=== PATIENT | male | born 1970 | race Caucasian/White ===

== ENCOUNTER → 2017-09-01 13:10 | Outpatient (CLI) | payer OTHER, SELFPAY ==
--- NOTE | 2017-09-01 13:12 | CT_ITS ---
CT head/brain wo/w con HISTORY: Left-sided facial numbness with headache ITS.REASON: numbness and headache ORDERING PHYSICIAN: Neville Winston MD PATIENT AGE: 47 years TECHNIQUE: Axial images obtained without and with contrast. Brain and bone windows reviewed. All CT scans at the facility use one or more dose reduction, viz: automated exposure control; ma/kV adjustment per patient size (including targeted exams where dose is matched to indication; i.e. head); or iterative reconstruction technique. FINDINGS: No midline shift, mass effect, intracranial hemorrhage, hydrocephalus, or extra-axial fluid collection is evident. No enhancing lesion. No large aneurysms The calvarium has an unremarkable appearance. No mastoid effusion. Moderate mucosal thickening involves the ethmoid sinuses on both sides. IMPRESSION: 1. No acute finding. 2. No enhancing lesions. No large territorial infarctions. 3. Ethmoid sinus disease
== END ==
PROVIDERS: PCP Emergency Medicine; Visit Provider Internal Medicine
DX: R51 Headache (principal); R20.0 Anesthesia of skin; I20.9 Angina pectoris, unspecified
CPT/HCPCS: 70470

== ENCOUNTER → 2018-03-10 08:10 | Outpatient (CLI) | payer OTHER, SELFPAY ==
[2018-03-10 09:04] LABS: Basophils # 0.1 K/mm3 (0-0.2); Basophils % 0.7 % (0.1-2.0); Eosinophils # 0.1 K/mm3 (0.0-0.4); Hematocrit 52.2 % (42.0-52.0); Hemoglobin 17.4 g/dL (14.1-18.0); Lymphocytes # 2.5 K/mm3 (0.7-4.5); Lymphocytes % 24.3 % (10-50); Mean Corpuscular HGB Conc 33.3 g/dL (31.8-35.4); Mean Corpuscular Hemoglobin 30.4 pg (27.0-31.2); Mean Corpuscular Volume 91.2 fl (80-94); Monocytes # 0.5 K/mm3 (0.1-1.0); Platelet Count 209 K/mm3 (142-424); Red Blood Count 5.73 M/mm3 (4.60-6.20); Red Cell Distribution Width 12.8 % (11.5-17.5); White Blood Count 10.1 K/mm3 (4.8-10.8)
[2018-03-10 09:39] LABS: Anion Gap 12.9 mEq/L (5-15); Blood Urea Nitrogen 14 mg/dL (7-18); Calcium 9.5 mg/dL (8.5-10.1); Carbon Dioxide 32 mmol/L (21.0-32.0); Chloride 98 mmol/L (98-107); Creatinine,Serum 0.98 mg/dL (0.70-1.30); Estimated Glomerular Filt Rate 82 ml/min (>60); GFR (African American) 100 ML/MIN (>60); Glucose 138 mg/dL (74-106); Potassium 3.9 mmoL/L (3.5-5.1); Sodium 139 mmol/L (136-145)
== END ==
PROVIDERS: Visit Provider Surgery
DX: N62 Hypertrophy of breast (principal)
CPT/HCPCS: 36415; 80048; 85025

== ENCOUNTER → 2018-11-25 08:01 | Outpatient (CLI) | payer BC, SELFPAY ==
[2018-11-25 09:23] LABS: Anion Gap 8.5 mEq/L (5-15); Blood Urea Nitrogen 11 mg/dL (7-18); Calcium 9.6 mg/dL (8.5-10.1); Carbon Dioxide 34 mmol/L (21.0-32.0); Chloride 101 mmol/L (98-107); Creatinine,Serum 0.93 mg/dL (0.70-1.30); Estimated Glomerular Filt Rate 87 ml/min (>60); GFR (African American) 105 ML/MIN (>60); Glucose 156 mg/dL (74-106); Potassium 3.5 mmoL/L (3.5-5.1); Sodium 140 mmol/L (136-145)
== END ==
PROVIDERS: Visit Provider Internal Medicine Cardiovascular Disease
DX: R06.09 Other forms of dyspnea (principal); R60.9 Edema, unspecified; I25.10 Atherosclerotic heart disease of native coronary artery without angina pectoris; E78.5 Hyperlipidemia, unspecified; I11.9 Hypertensive heart disease without heart failure; R53.83 Other fatigue
CPT/HCPCS: 36415; 80048; 83880

== ENCOUNTER → 2018-12-09 07:12 | Outpatient (CLI) | payer BC, SELFPAY | PROVIDERS: PCP Emergency Medicine; Visit Provider Internal Medicine Cardiovascular Disease | DX: I25.10 Atherosclerotic heart disease of native coronary artery without angina pectoris (principal); R06.09 Other forms of dyspnea; E78.5 Hyperlipidemia, unspecified; I11.9 Hypertensive heart disease without heart failure; I20.9 Angina pectoris, unspecified; R53.83 Other fatigue; R60.9 Edema, unspecified | CPT/HCPCS: 93306 ==

== ENCOUNTER → 2019-02-10 07:50 | Outpatient (CLI) | payer BC, SELFPAY ==
--- NOTE | 2019-02-10 08:08 | US_ITS ---
PROCEDURE: MM DIG MAMM BI DX W/CAD CLINICAL INDICATION: MALGORZATA NODULES COMPARISON: BL US BREAST-LT COMPLETE W/AXILLA from 09/09/2016 DMDB DIG MAMM-DX MALGORZATA W/CAD from 09/09/2016 US BREAST RT COMPLETE from 02/10/2019 TECHNIQUE: Standard images performed along with spot compression view and right breast ultrasound FINDINGS: There is increase in and retroareolar tissue on both sides. On the left this is decreased compared to the previous exam and on the right this has increased compared to the previous study. No malignant appearing microcalcifications. Motion artifact is present on the right and there is some difficulty in positioning right breast. The increased density in the right breast has a somewhat masslike appearance. This area measures 2.8 cm there is increased density also present posterior to the masslike area. Right breast ultrasound: There is a heterogeneous 3.6 x 1.8 cm area of slight decreased echogenicity in the retroareolar region on the right corresponding to the mammographic abnormality. IMPRESSION: On the right there is a masslike area of increased density in the retroareolar region with some increased glandular density posterior to this region. These findings may all be related to gynecomastia however, 1 cannot exclude the possibility of neoplasm. Consider fine needle aspiration/core biopsy with ultrasound guidance for further evaluation. The gynecomastia in the retroareolar region on the left has shown improvement. BI-RAD Category: 4 Suspicious Abnormality - Biopsy Considered FOLLOW-UP: BIO Biopsy Recommended (A letter has been sent to the patient regarding results of the study.) Dictated by: Anton Medina MD 02/16/2019 09:41 Electronically signed by Anton Medina MD in [place] 02/16/2019 09:41
== END ==
PROVIDERS: PCP Emergency Medicine; Visit Provider Surgery
DX: N62 Hypertrophy of breast (principal)
CPT/HCPCS: 76641; 77066

== ENCOUNTER → 2019-02-22 09:13 | Outpatient (CLI) | payer BC, SELFPAY ==
[2019-02-22 09:48] LABS: Basophils # 0.1 K/mm3 (0-0.2); Basophils % 0.6 % (0.1-2.0); Eosinophils # 0.1 K/mm3 (0.0-0.4); Eosinophils % 0.8 % (0.1-12.0); Hemoglobin 16.8 g/dL (14.1-18.0); Lymphocytes # 2.1 K/mm3 (0.7-4.5); Lymphocytes % 21.3 % (10-50); Mean Corpuscular HGB Conc 32.9 g/dL (31.8-35.4); Mean Corpuscular Hemoglobin 32.1 pg (27.0-31.2); Mean Corpuscular Volume 97.6 fl (80-94); Mean Platelet Volume 7.2 fl (7.4-10.4); Monocytes # 0.4 K/mm3 (0.1-1.0); Monocytes % 4.5 % (1.7-9.3); Neutrophils % 72.8 % (37.0-80.0); Platelet Count 220 K/mm3 (142-424); Red Blood Count 5.23 M/mm3 (4.60-6.20); Red Cell Distribution Width 12.6 % (11.5-17.5); White Blood Count 9.6 K/mm3 (4.8-10.8)
[2019-02-22 11:21] LABS: Anion Gap 13.4 mEq/L (5-15); Blood Urea Nitrogen 10 mg/dL (7-18); Calcium 9.3 mg/dL (8.5-10.1); Carbon Dioxide 30 mmol/L (21.0-32.0); Chloride 99 mmol/L (98-107); Creatinine,Serum 1.05 mg/dL (0.70-1.30); Estimated Glomerular Filt Rate 76 ml/min (>60); GFR (African American) 92 ML/MIN (>60); Glucose 143 mg/dL (74-106); Potassium 3.4 mmoL/L (3.5-5.1); Sodium 139 mmol/L (136-145)
== END ==
PROVIDERS: Visit Provider Surgery
DX: N62 Hypertrophy of breast (principal)
CPT/HCPCS: 36415; 80048; 85025

== ENCOUNTER → 2019-03-01 12:05 | Outpatient (CLI) | payer BC, SELFPAY ==
--- NOTE | 2019-03-01 | CA_ITS ---
APPROVED REPORT Exam: Exercise Treadmill Technologist: Theresa Bell Ht: 5 ft 8 in Wt: 193 lbs BSA: 2.01 m2 HR: 79 bpm BP: 142/96 mmHg Indications: Angina Medical History Medications: Omeprazole,,,,, Furosemide (LASIX),,,,, Isosorbide,,,,, Aspirin,,,,, Losartan,,,,, Escitalopram,,,,, BisOPROLOL,,,,, Nitro,,,,, Prasugel,,,,, Stress Test Details Test: Du HR Resting HR: 73 bpm Max Heart Rate (APMHR): 173 bpm Max HR Achieved: 150 bpm Target HR (85% APMHR): 147 bpm % of APMHR: 86 Recovery HR: 96 bpm BP Resting BP: 146.0/96.0 mmHg Max BP: 164.0/104.0 mmHg Recovery BP: 146.0/96.0 mmHg ECG Clinical Exercise duration: 10:04 min Highest Stage Achieved: Exercise capacity: 12.8 METs Stress ECG Conclusion Resting ECG: Sinus rhythm Du protocol completed. Patient exercised 10:04. Test stopped due to shortness of breath. Symptoms: Shortness of breath at peak exercise, resolved in recovery. No chest pain. Arrhythmias/Ectopy: No ectopy noted. ST-T Changes: less than 1.[address] depression. Conclusion: Images to follow. Test Summary RECOVERY 03:00 0.0 0.0 105 . 164/104 . . REST 07:09 0.0 0.0 73 . 146/ 96 . . Stage 1 01:00 10.0 1.7 92 . . . . Stage 1 02:00 10.0 1.7 97 . . . . Stage 1 03:00 10.0 1.7 99 . . . . Stage 2 01:00 12.0 2.5 106 . . . . Stage 2 02:00 12.0 2.5 110 . . . . Stage 2 03:00 12.0 2.5 113 . 148/ 82 . . Stage 3 01:00 14.0 3.4 120 . . . . Stage 3 02:00 14.0 3.4 127 . . . . Stage 3 03:00 14.0 3.4 135 . . . . Stage 4 01:00 16.0 4.2 146 . . . . Stage 4 01:04 16.0 4.2 148 . . . Stop exercise at 10:04 RECOVERY 01:00 0.0 0.0 133 . 158/ 90 . . RECOVERY 02:00 0.0 0.0 115 . 158/ 90 . . RECOVERY 03:00 0.0 0.0 105 . 164/104 . . RECOVERY 04:00 0.0 0.0 97 . 164/104 . . RECOVERY 04:54 0.0 0.0 95 . 146/ 96 . . Electronically signed by : Rickey Crenshaw, 03/02/2019 05:51:26
--- NOTE | 2019-03-01 12:32 | NM_ITS ---
APPROVED REPORT Exam: Nuclear Stress Test Indication: angina Patient Location: Outpatient Stress Tech: Theresa Bell [place] Tech:Cierra CalhounARIEL, RT (R)(N) Ht: 5 ft 8 in Wt: 193 lbs Bra Size: angina HR: 79 bpm BP: 142/96 mmHg BSA: 2.01 m2 BMI: 29.3 History: angina Procedure: Patient exercised on Du protocol 10.04 minutes and sec, resting heart rate 79 bpm, resting blood pressure 142/96 mmHg, with exercise maximum heart rate achived was 150 bpm which is Greater than 85 % of the maximum predicted heart rate and blood pressure was 164/104 mmHg. Patient denied any complaint of chest pain. Patient has Good exercise capacity, achieved 12.8 METs of workload on treadmill, the blood pressure response to exercise was Adequate. Electrocardiogram Resting electro cardiogram showed sinus rhythm, with exercise there is less than 1.[address] segment depression noted from the baseline EKG. The EKG portion of the exercise Myoview is negative for ischemia. Cardiac Stress and Resting SPECT Images: Cardiac Stress and Resting SPECT images were obtained using technetium 99m Myoview 30.7 mCi stress and 10.49 mCi at rest. Gated SPECT with analysis of segmental wall motion and calculation of the ejection fraction also done. Cardiac stress and resting SPECT images show uniform myocardial activity without segmental perfusion abnormality, computer derived ejection fraction is over 65% with no regional wall motion abnormality, right ventricle is normal size and contractility. Conclusion: 1. The EKG portion of the exercise Myoview is negative for ischemia, patient has good exercise capacity achieved 12.8 mets of workload on treadmill, the blood pressure response to exercise was adequate, there was no exercise-induced chest discomfort. 2. No scintigraphic evidence of reversible ischemia seen at this level of exercise, computer derived ejection fraction is over 65% with no regional wall motion abnormality, right ventricle is normal size and contractility. 3. Normal exercise sestamibi study. Electronically signed by : Rickey Crenshaw, 03/02/2019 05:53:30
--- NOTE | 2019-03-01 13:38 | HMH.ITSHM ---
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 []PRASUGREL OMEPRAZOLE NITRO LOSARTAN ISOSORBIDE FUROSEMIDE ESCITALOPRAM BISOPROLOL ASA
== END ==
PROVIDERS: PCP Emergency Medicine; Visit Provider Urology
DX: I20.9 Angina pectoris, unspecified (principal); E78.5 Hyperlipidemia, unspecified; I11.9 Hypertensive heart disease without heart failure; R06.00 Dyspnea, unspecified; N62 Hypertrophy of breast
CPT/HCPCS: 78452; 93017; A9502

== ENCOUNTER 2019-11-10 23:26 | Observation (INO) | payer BC, SELFPAY ==
--- NOTE | 2019-11-10 23:23 | ECG_ITS ---
APPROVED REPORT Exam: Resting ECG HR:82 bpm ECG Measurements Heart Rate 82 AXES WV 170 P 66 QRSd 96 QRS -11 QT 390 T 55 QTc 455 <Conclusion> Normal sinus rhythm Normal ECG Electronically signed by : Con Flowers, 11/12/2019 08:07:08
[2019-11-10 23:26] VITALS: BP 154/109; PULSE 82; RESP 16; TEMP 37.1; O2SAT 98; BMI 31.0
--- NOTE | 2019-11-10 23:48 | HMH.EDCP ---
ED Disposition Clinical Impression: Unstable angina pectoris, Obesity (BMI 30.0-34.9), Hypokalemia, Alcohol use HTN (hypertension) Qualifiers: Hypertension type: essential hypertension Qualified Code(s): I10 - Essential (primary) hypertension Disposition: Admitted as Observation Condition on Discharge: Fair Referrals: Angel Hector MD [Primary Care Provider] - - Critical Care Critical Care Time: No Attestation: On 11/10/19, the high probability of a clinically significant, sudden or life threatening deterioration of the following system(s) required my full and direct attention, intervention and personal management. The time I documented below is in addition to time spent performing reported procedures but includes the following listed in this critical care notation. Medical Decision Making - Medical Records Medical records reviewed: Yes: I reviewed the patient's medical records. - Valeriy Inquiry Pt receiving controlled substance: No Vital Signs: 11/10/19 23:26 11/10/19 23:50 11/11/19 00:24 Temperature 98.7 F Temperature Source Oral Pulse Rate [Left Radial] 82 78 76 Respiratory Rate 16 18 18 Blood Pressure [Right Arm] 154/109 H 135/93 H 147/95 H Blood Pressure Mean [Right Arm] 124 107 112 Blood Pressure Source [Right Arm] Automatic Cuff Blood Pressure Position [Right Arm] Sitting 02 Sat by Pulse Oximetry 98 94 L 95 Oxygen Delivery Method Room Air Room Air Room Air 11/11/19 01:14 Temperature Temperature Source Pulse Rate [Left Radial] 71 Respiratory Rate 18 Blood Pressure [Right Arm] 137/91 H Blood Pressure Mean [Right Arm] 106 Blood Pressure Source [Right Arm] Blood Pressure Position [Right Arm] 02 Sat by Pulse Oximetry 97 Oxygen Delivery Method - Lab Data Lab results reviewed: Yes: I reviewed the patient's lab results. Lab Results 11/10/19 23:36: Sodium 137, Potassium 2.8 L*, Chloride 94 L, Carbon Dioxide 33 H, Anion Gap 12.8, BUN 7 L, Creatinine 0.80, Estimated Creat Clear 148, Estimated GFR 103, Est GFR ( Amer) 125, Glucose 222 H, Calcium 9.3, Troponin I < 0.01 11/10/19 23:36: WBC 8.7, RBC 5.18, Hgb 17.4, Hct 49.9, MCV 96.4 H, MCH 33.6 H, MCHC 34.9, RDW 13.3, Plt Count 169, MPV 7.3 L, Neut % (Auto) 75.9, Lymph % (Auto) 17.1, [place] % (Auto) 5.9, Eos % (Auto) 0.9, Baso % (Auto) 0.4, Neut # (Auto) 6.6, Lymph # (Auto) 1.5, [place] # (Auto) 0.5, Eos # (Auto) 0.1, Baso # (Auto) 0.0 11/10/19 23:36: Plasma/Serum Alcohol 11 H 11/10/19 23:36: Magnesium 2.0 Result diagrams: 11/10/19 23:36 11/10/19 23:36 Orders (Tests/Meds): ED MEDICATIONS Generic Name Dose Route Start Last Admin Trade Name Freq PRN Reason Stop Dose Admin Sodium Chloride 1,000 mls @ 999 mls/hr 11/10/19 23:45 11/10/19 23:50 Sod Chlor 0.9% 1000ml Bag IV 11/11/19 00:45 999 mls/hr .Q1H1M JEWELS Administration Discontinued Medications Generic Name Dose Route Start Last Admin Trade Name Freq PRN Reason Stop Dose Admin Aspirin 324 mg 11/10/19 23:47 11/10/19 23:51 Aspirin 81mg Chewable Tablet PO 11/10/19 23:48 324 mg ONCE ONE Administration Nitroglycerin 1 gm 11/10/19 23:47 11/10/19 23:51 Nitroglycerin 1 Inch Oint Udp TD 11/10/19 23:48 1 gm ONCE ONE Administration Potassium Chloride 40 meq 11/11/19 01:10 Klor-Con 20meq Tablet PO 11/11/19 01:11 ONCE ONE ORDERS Category Date Time Status CT head/brain wo con Stat Cat Scan 11/11/19 00:03 Taken XR chest 2V Stat Exams 11/11/19 00:05 Taken ESR [Erythrocyte Sedimentation Rate] Stat Lab 11/11/19 00:49 Ordered Hemoglobin A1C Stat Lab 11/11/19 00:50 Ordered Troponin I Q3H Lab 11/11/19 03:00 Ordered Troponin I Q3H Lab 11/11/19 06:00 Ordered - Radiology Data #1 Image(s): Chest Image Reviewed: Yes I reviewed the patient's radiology image Preliminary Findings: Abnormal (cm) - CT Data CT Scan: Head Time Received: 00:[address] Reviewed: Yes: I have viewed the radiologist's interpretation Preli
[2019-11-10 23:50] VITALS: BP 135/93; PULSE 78; RESP 18; O2SAT 94
[2019-11-10 23:55] LABS: Basophils % 0.4 % (0.1-2.0); Chloride 94 mmol/L (98-107); Eosinophils # 0.1 K/mm3 (0.0-0.4); Eosinophils % 0.9 % (0.1-12.0); Hematocrit 49.9 % (42.0-52.0); Hemoglobin 17.4 g/dL (14.1-18.0); Lymphocytes # 1.5 K/mm3 (0.7-4.5); Lymphocytes % 17.1 % (10-50); Mean Corpuscular HGB Conc 34.9 g/dL (31.8-35.4); Mean Corpuscular Hemoglobin 33.6 pg (27.0-31.2); Mean Corpuscular Volume 96.4 fl (80-94); Mean Platelet Volume 7.3 fl (7.4-10.4); Monocytes # 0.5 K/mm3 (0.1-1.0); Monocytes % 5.9 % (1.7-9.3); Neutrophils # 6.6 K/mm3 (1.8-7.8); Neutrophils % 75.9 % (37.0-80.0); Platelet Count 169 K/mm3 (142-424); Red Blood Count 5.18 M/mm3 (4.60-6.20); Red Cell Distribution Width 13.3 % (11.5-17.5); Sodium 137 mmol/L (136-145); White Blood Count 8.7 K/mm3 (4.8-10.8)
[2019-11-10 23:58] LABS: Blood Urea Nitrogen 7 mg/dl (9-20); Creatinine Clearance Estimated 148 mL/min (50-200); Estimated Glomerular Filt Rate 103 ml/min (>60); GFR (African American) 125 ML/MIN (>60)
[2019-11-10 23:59] LABS: Anion Gap 12.8 mEq/L (5-15); Calcium 9.3 mg/dl (8.4-10.2); Carbon Dioxide 33 mmol/L (22.0-30.0); Ethyl Alcohol 11 mg/dl (0-10); Glucose 222 mg/dl (74-100)
--- NOTE | 2019-11-10 23:59 | PC.NURSE ---
pt to radiology
[2019-11-11] VITALS (12 sets, daily range): BP systolic 111–147; BP diastolic 70–95; PULSE 50–76; RESP 16–18; TEMP 36.4–36.9; O2SAT 94–97; BMI 31.0; BMI 27.1
[2019-11-11 00:03] LABS: Potassium 2.8 mmoL/L (3.5-5.1)
--- NOTE | 2019-11-11 00:03 | CT_ITS ---
PROCEDURE: CT HEAD/BRAIN WO CON CLINICAL INDICATION: right sided headache, left sided drop in foot Severe headache COMPARISON: HEADWW CT head/brain wo/w con from 09/01/2017 TECHNIQUE: Axial images obtained. All CT scans at the facility use one or more dose reduction, viz: automated exposure control, ma/kV adjustment per patient size (including targeted exams where dose is matched to indication, i.e. head), or iterative reconstruction technique. FINDINGS: No midline shift, mass effect, intracranial hemorrhage, hydrocephalus, or extra-axial fluid collection is evident. The calvarium has an unremarkable appearance. No mastoid effusion. There is opacification of the right ethmoid air cell mid aspect. No sinus air-fluid levels. IMPRESSION: 1. No acute intracranial findings. 2. Opacified right mid ethmoid air cell Dictated by: Anton Medina MD 11/11/2019 07:37 Electronically signed by Anton Medina MD in [facility] 11/11/2019 07:37
--- NOTE | 2019-11-11 00:05 | XR_ITS ---
PROCEDURE: XR CHEST 2V CLINICAL HISTORY: chestpain Chest pain, left-sided weakness COMPARISON: CXR CHEST(2 VIEWS-NOT PORTABLE) from 10/29/2015 CXR1 CHEST-PORTABLE from 05/05/2016 CXR1VP XR chest portable from 03/19/2018 FINDINGS: The cardiomediastinal silhouette and pulmonary vascularity are within normal limits. The lungs are clear without infiltrates, suspicious nodules, or pleural effusions. Mild lower thoracic curvature convex right IMPRESSION: No acute findings. Dictated by: Anton Medina MD 11/11/2019 07:35 Electronically signed by Anton Medina MD in [facility] 11/11/2019 07:35
[2019-11-11 00:15] LABS: Troponin I < 0.01 ng/ml (0.00-0.034)
--- NOTE | 2019-11-11 00:17 | PC.NURSE ---
pt back from RAD
[2019-11-11 01:45] LABS: Erythrocyte Sedimentation Rate 9 mm/hr (0-15)
--- NOTE | 2019-11-11 02:05 | PC.NURSE ---
attempted to call report for second time. forwarded to the wrong nurse again was told the right nurse would be calling me back.
--- NOTE | 2019-11-11 02:24 | PC.NURSE ---
report called to EMILIO armendariz
--- NOTE | 2019-11-11 02:52 | PC.NURSE ---
PT ARRIVED TO THE FLOOR VIA W/C FROM ED AT 0251.
[2019-11-11 03:56] LABS: Troponin I < 0.01 ng/ml (0.00-0.034)
[2019-11-11 04:59] LABS: Hemoglobin A1C 7.4 % (4.0-6.0)
[2019-11-11 05:38] LABS: POC Glucose,Bedside 133 (70-110)
--- NOTE | 2019-11-11 06:07 | PC.NURSE ---
[place] ROE NOTIFIED OF CONSULT
--- NOTE | 2019-11-11 07:27 | P.CONPHA_ITS ---
[facility] Pharmacy VTE Monitoring - Patient Demographics Admission date: 11/11/19 Report Date: 11/11/19 Time: 07:27 Allergies/Adverse Reactions: Patient Allergies loratadine [LORATADINE] Allergy (Mild, Verified 03/09/19 13:34) FACIAL SWELLING atorvastatin [From Lipitor] Adverse Reaction (Intermediate, Verified 03/09/19 13:34) myalgias spironolactone [From Aldactone] Adverse Reaction (Verified 03/09/19 13:34) Gynecomastia Height: 1.73 m Weight: 80.824 kg Patient Problems: Current Active Problems Unstable angina pectoris (Acute) Obesity (BMI 30.0-34.9) (Acute) Hypokalemia (Acute) HTN (hypertension) (Acute) Alcohol use (Acute) - VTE Risk Labs: VTE Related Lab Results Hgb 17.4 g/dL (14.1-18.0) 11/10/19 23:36 Hct 49.9 % (42.0-52.0) 11/10/19 23:36 Plt Count 169 K/mm3 (142-424) 11/10/19 23:36 BUN 7 mg/dl (9-20) L 11/10/19 23:36 Creatinine 0.80 mg/dl (0.66-1.25) 11/10/19 23:36 Estimated Creat Clear 148 mL/min (50-200) 11/10/19 23:36 VTE Score: 2 - Prophylaxis VTE Prophylaxis Ordered?: Yes Types of VTE Prophylaxis: TEDS Knee High Location of Applied Device: Bilateral Lower Extremeties - VTE Diagnosis Confirmed Treatment or plan recommended: Continue Current Treatment
--- NOTE | 2019-11-11 07:27 | HMH.PHAINT ---
MEDICATION RECONCILIATION COMPLETED ON PATIENT USING EXTERNAL FILL HISTORY FROM PHARMACY. -RANJEET GREGORIO, AZEBD
[2019-11-11 07:36] LABS: Basophils % 0.5 % (0.1-2.0); Eosinophils # 0.1 K/mm3 (0.0-0.4); Eosinophils % 1.6 % (0.1-12.0); Hematocrit 43.3 % (42.0-52.0); Lymphocytes # 1.9 K/mm3 (0.7-4.5); Lymphocytes % 29.6 % (10-50); Mean Corpuscular HGB Conc 35.1 g/dL (31.8-35.4); Mean Corpuscular Hemoglobin 34.2 pg (27.0-31.2); Mean Corpuscular Volume 97.4 fl (80-94); Mean Platelet Volume 8.4 fl (7.4-10.4); Monocytes # 0.4 K/mm3 (0.1-1.0); Monocytes % 6.6 % (1.7-9.3); Neutrophils # 3.9 K/mm3 (1.8-7.8); Neutrophils % 61.8 % (37.0-80.0); Platelet Count 146 K/mm3 (142-424); Red Blood Count 4.45 M/mm3 (4.60-6.20); Red Cell Distribution Width 13.4 % (11.5-17.5); White Blood Count 6.3 K/mm3 (4.8-10.8)
[2019-11-11 07:55] LABS: Troponin I < 0.01 ng/ml (0.00-0.034)
--- NOTE | 2019-11-11 07:55 | HMH.CNCARD ---
History of Present Illness Consult date: 11/11/19 Requesting physician: Angel Hector Consult reason: chest pain Chief complaint: chest pain Additional Medical History:: 1. Coronary artery disease A. [facility], 08/2017,1. Moderate coronary artery disease as described above 2. Severe endothelial dysfunction at 35-40 mm Hg 3. Severely elevated LVEDP consistent with diastolic dysfunction 4. Normal ejection fraction B. [facility], 02/2018, ANGIOGRAPHIC RESULTS: 1. The left main artery normal 2. The left anterior descending artery has a proximal eccentric 10% stenosis followed by a concentric 50% stenosis immediately distal to the first septal souvenir and novelty maker and a small to medium sized first diagonal artery. There is an additional mid vessel 50% stenosis following 7 septal perforators. The first diagonal artery is a 2 mm vessel and has a mid vessel 70-80% stenosis 3. The circumflex artery is a nondominant yet still large vessel with a 10% smooth stenosis and a large first obtuse marginal artery and a 30 and 50% stenosis in the second moderate sized 2.75 mm obtuse marginal artery 4. The right coronary artery is a dominant vessel and normal 5. The CRABTREE ventriculogram reveals normal 65% 6. The left ventricular end-diastolic pressure mildly elevated 20 mmHg IMPRESSION: 1. Moderate coronary artery disease as described above accompanied by normal left ventricular function 2. Mildly elevated LVEDP PLAN: 1. Patient is a low and acceptable risk to proceed with thoracic surgery on March 19 for lung mass/possible lung cancer 2. Patient should be treated with perioperative beta blockers and nitrates in order to reduce stable angina 3. Nothing from a percutaneous standpoint will improve or decrease patient's already low risk from the up coming surgery 4. Following thoracic surgery should patient continue to have angina which is recalcitrant to medical management consideration could be given to perform FFR on the LAD to determine if stenting will benefit patient from an angina standpoint 5. I'm very confident patient will do well with medical management. 6. Continue with aspirin 81 mg daily combined with high intensity statin combined with once daily beta collin combined with once daily long-acting nitrates 7. Avoidance of tobacco products C. [facility] Myoview, 02/2019, exercised for 10 minutes achieving 12.8 METs. No ischemia with ejection fraction 65%. D. Admission for chest pain, 11/11/2019, troponins normal x2 with normal EKG. Medical therapy recommended 2. History of tobacco use discontinued in 2017 3. Hypertension A. Echocardiogram, 2018, EF greater than 60% with borderline right ventricular enlargement. Normal LV size and function. B. Echocardiogram, 10/2019, preliminary report shows EF greater than 55% with no significant valvular heart disease. 4. Hyperlipidemia 5. Diabetes mellitus type 2 with hemoglobin A1c of 7.4, 10/2019 6. GERD 7. ETOH use History of present illness: 49-year-old white male with history of moderate coronary artery disease by cardiac catheterization x2 in 2017 presented to the emergency department due to 2 to 3-day history of recurrent substernal chest discomfort. Patient does have a chronic left-sided chest pain describes a sharp sensation. This was a different sensation substernally that was worse with breathing. Blood pressure was noted to be elevated at 154/109 mmHg on admission to the ER. He did receive nitroglycerin paste with improvement in symptoms and blood pressure. Patient was kept overnight for observation, his troponins have returned normal and EKG showed no acute ST segment changes. Preliminary echocardiogram this morning shows preserved ejection fraction with no significant valvular heart disease. In discussing with the patient his medications he does admit to missing medications on the weekends. He works third shift and takes his medications prior to going to work and
--- NOTE | 2019-11-11 08:00 | CA_ITS ---
APPROVED REPORT EXAM: Comprehensive 2D, Doppler, and color-flow Echocardiogram Inspector Barrel: Chapis Domínguez RVT Ht: 5 ft 8 in Wt: 204lbs BSA: 2.06 BP: 147/95 mmHg Indications: CP,HTN,CAD,HLD 2D Dimensions LVOT 1.67 cm (M/F) 1.5-2.5 M-Mode Dimensions RVDd 2.93 cm (0.9-2.6) LVDd 4.14 cm (3.5-5.7) LVDs 2.36 cm (3.5-5.7) IVSd 1.36 cm (0.6-1.1) PWd 1.00 cm (0.6-1.1) EF (Teich) 74.60% FS 43.00% EDV (Teich) 75.90 mL ESV (Teich) 19.30 mL LV Diastology E/A Ratio 1.37 Mitral Valve MV A Velocity 52.00 (40-130 cm/s) Left Ventricle Left atrium is mildly enlarged, left ventricle is normal size, left ventricle wall thickness is upper limit of normal, visually estimated ejection fraction 50%, there is moderate inferior basal wall hypokinesis. Endocardial surfaces are poorly visualized. Diastolic parameters are within normal range. Right Ventricle Right atrium and right ventricular normal size and contractility. Aortic Valve Aortic valve is grossly normal, there is no aortic stenosis or aortic insufficiency. Mitral Valve Mitral valve is grossly normal, there is mild mitral regurgitation. Tricuspid Valve Tricuspid valve grossly normal, there is mild tricuspid regurgitation, tricuspid regurgitation jet velocity is inadequate for calculation of the right ventricular systolic pressure. Pulmonic Valve Pulmonic valve is poorly visualized. Great Vessels Aortic root is normal size. Pericardium No significant pericardial effusion noted. Conclusion 1. Normal left ventricular size, preserved left ventricular systolic function, visually estimated ejection fraction 50% with segmental wall motion abnormality described above, endocardial surfaces are poorly visualized, diastolic parameters are within normal range. 2. Mild mitral and tricuspid regurgitation. 3. No significant pericardial effusion noted. Electronically signed by : Rickey Crenshaw, 11/11/2019 14:20:35
[2019-11-11 08:02] LABS: Chloride 100 mmol/L (98-107); Potassium 3.4 mmoL/L (3.5-5.1); Sodium 138 mmol/L (136-145)
[2019-11-11 08:05] LABS: Anion Gap 7.4 mEq/L (5-15); Blood Urea Nitrogen 8 mg/dl (9-20); Calcium 8.4 mg/dl (8.4-10.2); Carbon Dioxide 34 mmol/L (22.0-30.0); Creatinine Clearance Estimated 129 mL/min (50-200); Estimated Glomerular Filt Rate 103 ml/min (>60); GFR (African American) 125 ML/MIN (>60); Glucose 142 mg/dl (74-100)
[2019-11-11 08:33] LABS: Hemoglobin 15.2 g/dL (14.1-18.0)
[2019-11-11 11:13] LABS: POC Glucose,Bedside 121 (70-110)
--- NOTE | 2019-11-11 12:26 | HMH.HPDC ---
General - General Admission date:: 11/11/19 Discharge date: 11/11/19 *Admission Date: 11/11/19 *Chief complaint: chest pain *History of present illness: this pt presented to the ed with progressive chest pain over the last few days - Description of Symptoms (Recalled from ER Triage Doc. by RN): pt c/o intermitten chest pain for a couple of days to the left side of his chest that he describes as a sharp pain rating a 8 as well as aching joints of is LLE. pt also stated he has developed a drop in his left foot when he walks that started today progressive lt sided chest pain over the last 3 days with rad to jaw - hx of cad with last cath 2017 and last gxt 03/08- pt also with pain to jts on lt with weakness to lt foot - positive etoh but no tob MD complaint: chest pain indicative of cardiac pt was admitted for cardiac eval [facility] History I have reviewed the patient's past medical history: Yes Medical History: Reports:: Coronary Artery Disease, Diabetes Mellitus Type 2, Gastroesophageal Reflux Disease(GERD), Hyperlipidemia, Hypertension, Kidney Stones, Myocardial Infarction Denies:: Cancer, Diabetes Mellitus Type 1, Internal Pacemaker, MRSA, Seizures *Have you ever received a pneumonia vaccine?: No *Have you received a flu vaccine this season?: No Other Medical History: Denies: Blood Transfusion Reaction Laterality Cases: Bilateral: Lumpectomy, Other Other Surgeries: Yes: Cardiac Catheterization, Coronary Stent, Other (bilateral lumpectomy). No: Pacemaker Amputation: No Fractures: No - *Social History Smoking Status: Former smoker Tobacco Type: smokeless tobacco # Packs/Day (cigarettes): 1 Alcohol Intake: current Alcohol Intake Frequency:: 3 or more drinks per day Substance Use Type: denies use *Occupational Status:: employed Housing: house Household Members: spouse *Travel in the last 8 weeks: None Family Hx:: Heart Attack, Coronary Artery Disease Review of Systems - Review of Systems Review of systems:: pertinent systems reviewed and negative unless documented below - Constitutional Denies fever(s) - Eyes Denies change in vision - ENT Denies sore throat - *Cardiovascular Reports chest pain at rest, Reports radiating jaw, neck or arm pain - *Respiratory Denies cough - *Gastrointestinal Denies abdominal pain - *Genitourinary Denies blood in urine - *Musculoskeletal Denies joint pain - Integumentary/Breasts Denies rash - *Neurologic Denies headache(s), Denies seizure-like activity - Psychiatric Denies thoughts of hurting/killing yourself Exam Vital signs and Labs for Last 24 Hours: Temp Pulse Resp BP Pulse Ox 98.1 F 50 L 18 116/80 96 11/11/19 08:00 11/11/19 12:12 11/11/19 08:00 11/11/19 08:00 11/11/19 08:00 Laboratory Results - last 24 hr 11/10/19 23:36: Sodium 137, Potassium 2.8 L*, Chloride 94 L, Carbon Dioxide 33 H, Anion Gap 12.8, BUN 7 L, Creatinine 0.80, Estimated Creat Clear 148, Estimated GFR 103, Est GFR ( Amer) 125, Glucose 222 H, Calcium 9.3, Troponin I < 0.01 11/10/19 23:36: WBC 8.7, RBC 5.18, Hgb 17.4, Hct 49.9, MCV 96.4 H, MCH 33.6 H, MCHC 34.9, RDW 13.3, Plt Count 169, MPV 7.3 L, Neut % (Auto) 75.9, Lymph % (Auto) 17.1, [place] % (Auto) 5.9, Eos % (Auto) 0.9, Baso % (Auto) 0.4, Neut # (Auto) 6.6, Lymph # (Auto) 1.5, [place] # (Auto) 0.5, Eos # (Auto) 0.1, Baso # (Auto) 0.0 11/10/19 23:36: Plasma/Serum Alcohol 11 H 11/10/19 23:36: Magnesium 2.0 11/11/19 00:00: ESR 9 11/11/19 00:00: Hemoglobin A1c 7.4 H 11/11/19 03:18: Troponin I < 0.01 11/11/19 05:29: POC Glucose 133 H 11/11/19 07:25: Troponin I < 0.01 11/11/19 07:25: WBC 6.3 D, RBC 4.45 L, Hgb 15.2 D, Hct 43.3, MCV 97.4 H, MCH 34.2 H, MCHC 35.1, RDW 13.4, Plt Count 146, MPV 8.4, Neut % (Auto) 61.8, Lymph % (Auto) 29.6, [place] % (Auto) 6.6, Eos % (Auto) 1.6, Baso % (Auto) 0.5, Neut # (Auto) 3.9, Lymph # (Auto) 1.9, [place] # (Auto) 0.4, Eos # (Auto) 0.1, Baso # (Auto) 0.0 11/11/19 07:25: Sodium 138, Potassium 3.4 L D, Ch
[2019-11-11 15:24] LABS: POC Glucose,Bedside 215 (70-110)
== END 2019-11-11 13:37 | disposition home or self-care (01) ==
LOC: ER 11-11 00:36 → 2ND 11-11 01:19
PROVIDERS: Admitting Provider Emergency Medicine; Emergency Provider Emergency Medicine; PCP Emergency Medicine; Visit Provider Emergency Medicine
DX: R07.9 Chest pain, unspecified (principal); I25.10 Atherosclerotic heart disease of native coronary artery without angina pectoris; I11.9 Hypertensive heart disease without heart failure; E11.9 Type 2 diabetes mellitus without complications; Z79.84 Long term (current) use of oral hypoglycemic drugs; I25.2 Old myocardial infarction; Z95.5 Presence of coronary angioplasty implant and graft; E87.6 Hypokalemia; J01.20 Acute ethmoidal sinusitis, unspecified
CPT/HCPCS: 36415; 70450; 71046; 80048; 82962; 83036; 83735; 84484; 85025; 85651; 93005; 93306; 96365; 99285; G0378

== ENCOUNTER 2019-12-01 07:58 | Outpatient (RCR) | payer BC, SELFPAY ==
--- NOTE | 2019-12-01 08:40 | HMH.PTOPEV ---
PT Outpatient Evaluation Rehab PT Outpatient Evaluation Start: 12/01/19 08:09 Freq: Status: Active Protocol: Document 12/01/19 08:29 ROE (Rec: 12/01/19 08:40 ROE [id number]) Electronically Signed By Aki Clement, PT 12/01/19 08:29 Outpatient Therapy Subjective History Subjective History Pt report h/o chronic LBP since bending and 'feeling a pop in my low back in June'. Pt reports improved LBP since initial injury, but reports exacerbation ~2 weeks ago with another lifting/bending injury. Pt reports initially L sided LBP w/L foot drop, ' then it moved to the right, and now the Left side feels better, and the right is way worse'. Pt reports R>L sided LBP currently, w/RLE radicular s/s to the toes. Pt reports s /s increased w/work activities at [facility]-'prolonged standing up to 10hrs, lifting up to 50#'. Chief Complaint Pain,Paresthesia,Weakness Symptom Type Ache,Sharp,Dull,Numbness, Tingling Symptoms Relieved By Rest/Positioning,Prescription Meds Symptoms Aggravated By Bending/Stooping,Physical Activity,Lifting Prior Functional Limitations Lifting,Driving,Standing, Walking,Bending/Stooping Current Functional Limitations Lifting,Driving,Standing, Walking,Bending/Stooping Symptom Description Constant but Variable Level of pain today (0-10) 6 Pain scale - at its best (0-10) 4 Pain scale - at its worst (0-10) 10 Lumbopelvic Eval Posture Thoracic Spine Posture Standing Position Neutral Lumbar Spine Posture Standing Position Flattened Assistive device Assistive Devices None / NA Gait Observation General Gait Pattern Observation Antalgic Gait Palapation tenderness right paraspinal tenderness Yes: 3/4 buttock tenderness Yes: 3/4 Lumbar/Sacral Palpation Findings Tenderness,Trigger Point, Muscle Guarding Accessory Movement L-spine Vertebrae Accessory Movements Right P/A [place] that Elicit Symptoms L4 right L5 right Range of Motion Lumbar Spine Active Flexion Range of 0-35 Motion (degrees)
== END 2019-12-01 08:45 | disposition home or self-care (01) ==
LOC: PT 07:58
PROVIDERS: PCP Emergency Medicine; Visit Provider Family Medicine
DX: M54.16 Radiculopathy, lumbar region (principal)
CPT/HCPCS: 97163

== ENCOUNTER 2020-05-22 19:36 | Emergency (ER) | payer BC, SELFPAY ==
[2020-05-22 19:37] VITALS: BP 149/110; PULSE 90; RESP 18; TEMP 36.8; O2SAT 97; BMI 27.8
[2020-05-22 19:56] VITALS: BMI 29.3
--- NOTE | 2020-05-22 19:56 | ECG_ITS ---
APPROVED REPORT Exam: Resting ECG HR:89 bpm ECG Measurements Heart Rate 89 AXES GA 164 P 60 QRSd 94 QRS -32 QT 382 T 34 QTc 464 Conclusion Sinus rhythm with fusion complexes Left axis deviation Abnormal ECG Electronically signed by : Con Flowers, 05/23/2020 13:49:54
--- NOTE | 2020-05-22 19:57 | XR_ITS ---
PROCEDURE: XR CHEST 2V CLINICAL HISTORY: shortnes of air Fever and chills COMPARISON: CR CXR1 CHEST-PORTABLE from 05/05/2016 CR CXR1VP XR chest portable from 03/19/2018 CR XR CHEST 2V from 11/11/2019 FINDINGS: The cardiomediastinal silhouette and pulmonary vascularity are within normal limits. The lungs are clear without infiltrates, suspicious nodules, or pleural effusions. No acute bony abnormalities. IMPRESSION: No acute findings. Dictated by: Anton Medina MD 05/23/2020 05:15 Anton Medina MD in [place] 05/23/2020 05:15
[2020-05-22 20:04] LABS: Adenovirus,PCR Not Detected (NotDetected); Bordetella Pertussis Not Detected (NotDetected); Chlamydophila Pneumoniae, PCR Not Detected (NotDetected); Coronavirus 19, PCR Not Detected (NotDetected); Coronavirus 229E Not Detected (NotDetected); Coronavirus NL63 Not Detected (NotDetected); Coronavirus OC43 Not Detected (NotDetected); Coronovirus HKU1,PCR Not Detected (NotDetected); Human Metapneumovirus Not Detected (NotDetected); Influenza A, PCR Not Detected (NotDetected); Influenza AH1, 2009 Not Detected (NotDetected); Influenza AH1, PCR Not Detected (NotDetected); Influenza AH3,PCR Not Detected (NotDetected); Influenza B, PCR Not Detected (NotDetected); Mycoplasma Pneumoniae, PCR Not Detected (NotDetected); Parainfluenza 1, PCR Not Detected (NotDetected); Parainfluenza 2, PCR Not Detected (NotDetected); Parainfluenza 3, PCR Not Detected (NotDetected); Parainfluenza 4, PCR Not Detected (NotDetected); Respiratory Syncytial Virus Not Detected (NotDetected); Rhinovirus/Enterovirus Not Detected (NotDetected)
[2020-05-22 20:06] LABS: ABG Base Excess 2.1 mmol/L (-2.4-2.3); ABG HCO3 25.5 mmhg (22.0-26.0); ABG Oxygen Saturation 98 % (90-100); ABG PCO2 34.2 mmhg (35.0-45.0); ABG PH 7.49 mmol/L (7.35-7.45); ABG TCO2 26.5 mmhg (23-27)
[2020-05-22 20:07] LABS: Basophils # 0.1 K/mm3 (0-0.2); Basophils % 0.8 % (0.1-2.0); Eosinophils % 0.6 % (0.1-12.0); Hematocrit 55.4 % (42.0-52.0); Lymphocytes # 1.4 K/mm3 (0.7-4.5); Lymphocytes % 21.3 % (10-50); Mean Corpuscular HGB Conc 34.3 g/dL (31.8-35.4); Mean Corpuscular Hemoglobin 32.8 pg (27.0-31.2); Mean Corpuscular Volume 95.6 fl (80-94); Mean Platelet Volume 7.4 fl (7.4-10.4); Monocytes # 0.3 K/mm3 (0.1-1.0); Neutrophils # 4.7 K/mm3 (1.8-7.8); Neutrophils % 73.3 % (37.0-80.0); Platelet Count 173 K/mm3 (142-424); Red Cell Distribution Width 13.4 % (11.5-17.5); White Blood Count 6.4 K/mm3 (4.8-10.8)
[2020-05-22 20:11] LABS: Lactic Acid 1.7 mmol/L (0.7-2.1)
[2020-05-22 20:15] LABS: Allen's Test Y; Oxygen R/A %; Source R/R
[2020-05-22 20:15] LABS: C-Reactive Protein 1.4 mg/L (0-4)
[2020-05-22 20:22] LABS: NT Pro Brain Natriuretic Pep. 16.2 pg/mL (0-125)
[2020-05-22 20:34] LABS: Chloride 102 mmol/L (98-107); Potassium 3.8 mmoL/L (3.5-5.1); Sodium 139 mmol/L (136-145)
[2020-05-22 20:37] LABS: Alanine Aminotransferase 92 U/L (12-78); Albumin Level 4.2 g/dl (3.5-5.0); Alkaline Phosphatase 108 U/L (38-126); Anion Gap 10.8 mEq/L (5-15); Aspartate Amino Transferase 103 U/L (17-59); Bilirubin,Direct 0.4 mg/dl (0.0-0.4); Bilirubin,Indirect 0.3 mg/dL (0.0-0.9); Bilirubin,Total 0.7 mg/dl (0.2-1.3); Bilirubin,Unconjugated 0.3 mg/dL (0.0-1.1); Blood Urea Nitrogen 9 mg/dl (9-20); Calcium 10.1 mg/dl (8.4-10.2); Carbon Dioxide 30 mmol/L (22.0-30.0); Creatinine Clearance Estimated 138 mL/min (50-200); Estimated Glomerular Filt Rate 103 ml/min (>60); GFR (African American) 124 ML/MIN (>60); Glucose 297 mg/dl (74-100); Total Protein,Serum 7.7 g/dl (6.3-8.2)
[2020-05-22 20:40] LABS: Erythrocyte Sedimentation Rate 5 mm/hr (0-15)
--- NOTE | 2020-05-22 20:44 | HMH.EDSOB ---
ED Disposition Clinical Impression: Bronchitis Reactive airway disease Qualifiers: Asthma severity: moderate Asthma persistence: persistent Asthma complication type: with acute exacerbation Qualified Code(s): J45.41 - Moderate persistent asthma with (acute) exacerbation Disposition: Home, Self-Care Condition on Discharge: Good Instructions: DI for Shortness of Breath Additional Instructions: use meds and see pcp for follow up Referrals: Angel Hector MD [Primary Care Provider] - - Critical Care Critical Care Time: No Attestation: On 05/22/20, the high probability of a clinically significant, sudden or life threatening deterioration of the following system(s) required my full and direct attention, intervention and personal management. The time I documented below is in addition to time spent performing reported procedures but includes the following listed in this critical care notation. Medical Decision Making - Medical Records Medical records reviewed: Yes: I reviewed the patient's medical records. - Valeriy Inquiry Pt receiving controlled substance: No Vital Signs: 05/22/20 19:37 Temperature 98.2 F Temperature Source Oral Pulse Rate [Left Radial] 90 Respiratory Rate 18 Blood Pressure [Right Arm] 149/110 H Blood Pressure Mean [Right Arm] 123 Blood Pressure Source [Right Arm] Automatic Cuff Blood Pressure Position [Right Arm] Supine 02 Sat by Pulse Oximetry 97 Oxygen Delivery Method Room Air - Lab Data Lab results reviewed: Yes: I reviewed the patient's lab results. Lab Results 05/22/20 19:45: WBC 6.4, RBC 5.80, Hgb 19.0 H*, Hct 55.4 H, MCV 95.6 H, MCH 32.8 H, MCHC 34.3, RDW 13.4, Plt Count 173, MPV 7.4, Neut % (Auto) 73.3, Lymph % (Auto) 21.3, [place] % (Auto) 4.0, Eos % (Auto) 0.6, Baso % (Auto) 0.8, Neut # (Auto) 4.7, Lymph # (Auto) 1.4, [place] # (Auto) 0.3, Eos # (Auto) 0.0, Baso # (Auto) 0.1 05/22/20 19:45: Sodium 139, Potassium 3.8, Chloride 102, Carbon Dioxide 30, Anion Gap 10.8, BUN 9, Creatinine 0.80, Estimated Creat Clear 138, Estimated GFR 103, Est GFR ( Amer) 124, Glucose 297 H, Calcium 10.1, Total Bilirubin 0.7, Direct Bilirubin 0.4, Conjugated Bilirubin 0.0, Indirect Bilirubin 0.3, Unconjugated Bilirubin 0.3, AST 103 H, ALT 92 H, Alkaline Phosphatase 108, Troponin I < 0.01, Total Protein 7.7, Albumin 4.2 05/22/20 19:45: C-Reactive Protein 1.4, NT-Pro-B Natriuret Pep 16.2 05/22/20 19:45: ESR 5 05/22/20 19:45: Lactate 1.7 05/22/20 19:45: Procalcitonin 0.178 05/22/20 19:49: Chlamy pneumoniae PCR Not detected, Adenovirus (PCR) Not detected, B. pertussis DNA (PCR) Not detected, Coronavirus OC43 (PCR) Not detected, Coronavirus HKU1 (PCR) Not detected, Coronavirus 229E (PCR) Not detected, SARS-CoV-2 (PCR) Not detected, Coronavirus NL63 (PCR) Not detected, Human Metapneumovir PCR Not detected, Influenza A (H1) PCR Not detected, Influ A (H1N1/09) PCR Not detected, Influenza A (H3) PCR Not detected, Influenza Type A (PCR) Not detected, Influenza Type B (PCR) Not detected, M. pneumoniae (PCR) Not detected, Parainfluenza 1 (PCR) Not detected, Parainfluenza 2 (PCR) Not detected, Parainfluenza 3 (PCR) Not detected, Parainfluenza 4 (PCR) Not detected, RSV (PCR) Not detected, Entero/Rhino (PCR) Not detected 05/22/20 20:05: Specimen Source R/r, O2 % R/a, ABG pH 7.49 H, ABG pCO2 34.2 L, ABG HCO3 25.5, ABG Total CO2 26.5, ABG O2 Saturation 98, ABG Base Excess 2.1, Anton Test Y Result diagrams: 05/22/20 19:45 05/22/20 19:45 Orders (Tests/Meds): ED MEDICATIONS Generic Name Dose Route Start Last Admin Trade Name Freq PRN Reason Stop Dose Admin Sodium Chloride 1,000 mls @ 999 mls/hr 05/22/20 20:45 05/22/20 20:45 Sod Chlor 0.9% 1000ml Bag IV 05/22/20 21:45 999 mls/hr .Q1H1M JEWELS Administration Ceftriaxone Sodium 1 gm/ 50 mls @ 100 mls/hr 05/22/20 23:09 05/22/20 23:14 Sodium Chloride IV 05/22/20 23:38 100 mls/hr ONCE ONE Administration Protocol Azithromycin 500 mg/ Sodium 250 ml
[2020-05-22 20:50] LABS: Troponin I < 0.01 ng/ml (0.00-0.034)
[2020-05-22 20:54] LABS: Procalcitonin 0.178 ng/mL (0.0-2.0)
[2020-05-22 22:07] VITALS: BP 136/92; PULSE 86; RESP 16; O2SAT 96
[2020-05-22 23:46] VITALS: BP 125/74; PULSE 89; RESP 16; TEMP 36.5; O2SAT 98
[2020-05-23 00:16] LABS: Troponin I < 0.01 ng/ml (0.00-0.034)
== END 2020-05-23 00:15 | disposition home or self-care (01) ==
PROVIDERS: Emergency Provider Emergency Medicine; PCP Emergency Medicine
DX: J20.9 Acute bronchitis, unspecified (principal); J45.41 Moderate persistent asthma with (acute) exacerbation; Z11.52 Encounter for screening for COVID-19; I25.10 Atherosclerotic heart disease of native coronary artery without angina pectoris; K21.9 Gastro-esophageal reflux disease without esophagitis; E78.5 Hyperlipidemia, unspecified; I10 Essential (primary) hypertension; I25.2 Old myocardial infarction; Z87.891 Personal history of nicotine dependence; Z79.899 Other long term (current) drug therapy
CPT/HCPCS: 71046; 80048; 80076; 82803; 83605; 83880; 84145; 84484; 85025; 85651; 86140; 87040; 87077; 87186; 87581; 87633; 87798; 93005; 96365; 96367; 96375; 99284; J0456; J2405

== ENCOUNTER → 2020-12-11 11:15 | Outpatient (CLI) | payer OTHER, SELFPAY ==
[2020-12-11 11:32] LABS: Coronavirus 19, PCR Not Detected (NotDetected); Influenza A, PCR Not Detected (NotDetected); Influenza B, PCR Not Detected (NotDetected)
== END ==
PROVIDERS: PCP Emergency Medicine; Visit Provider Nurse Practitioner Family
DX: Z20.822 Contact with and (suspected) exposure to COVID-19 (principal)
CPT/HCPCS: U0003

== ENCOUNTER 2021-01-14 12:24 | Emergency (ER) | payer OTHER, SELFPAY ==
[2021-01-14 12:26] VITALS: BP 154/100; PULSE 72; RESP 16; TEMP 36.8; O2SAT 100; BMI 28.1
--- NOTE | 2021-01-14 12:46 | XR_ITS ---
PROCEDURE: XR HIP RT 2-3V W/PELVIS CLINICAL INDICATION: pain Pain COMPARISON: No exams were available for comparison FINDINGS: No fracture or dislocation is evident. No significant degenerative change. No lytic or blastic change. Unremarkable soft tissues. IMPRESSION: No acute findings. Dictated by: Anton Medina MD 01/14/2021 13:34 Anton Medina MD in [facility] 01/14/2021 13:34
--- NOTE | 2021-01-14 12:46 | CT_ITS ---
PROCEDURE: CT LUMBAR SPINE WO CON CLINICAL HISTORY: Low back pain COMPARISON: CT CT LUMBAR SPINE WO CON from 07/12/2019 TECHNIQUE: Axial images obtained with sagittal and coronal reformats. All CT scans at the facility use one or more dose reduction, viz: automated exposure control, ma/kV adjustment per patient size (including targeted exams where dose is matched to indication, i.e. head), or iterative reconstruction technique. FINDINGS: Normal alignment. No fracture or dislocation. No lytic or blastic change. There is mild degenerative disc disease at L2-L3 with minimal bulging disc. L3-L4: Concentric bulging disc slightly eccentric toward the right with a possible small right paracentral disc herniation. MRI may confirm. This is causing right lateral recess narrowing. L4-5: Asymmetric bulging disc in the central left paracentral foraminal and lateral region on the left. Not significantly changed. This is causing left lateral recess narrowing and there is mild left foraminal narrowing. 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 L3-L4: Concentric bulging disc slightly eccentric toward the right with a possible small right paracentral disc herniation. MRI may confirm. This is causing right lateral recess narrowing. 2. L4-5: Asymmetric bulging disc in the central left paracentral foraminal and lateral region on the left. Not significantly changed. This is causing left lateral recess narrowing and there is mild left foraminal narrowing. 3. No acute fracture or dislocation. No lytic or blastic change Dictated by: Anton Medina MD 01/14/2021 13:43 Anton Medina MD in [facility] 01/14/2021 13:43
--- NOTE | 2021-01-14 13:12 | HMH.EDGENADL ---
ED Disposition Clinical Impression: Lumbar radiculopathy Disposition: Home, Self-Care Condition on Discharge: Good Instructions: DI for Sciatica Prescriptions: Hydrocod/Acet 5/325 mg [[place] 5/325mg tablet] 1 tab PO Q6HP PRN #12 tab PRN Reason: Moderate Pain Transmission Status: Sent to [facility] methocarbamoL [Methocarbamol] 750 mg PO QID 7 Days #28 tab Transmission Status: Pending to [facility] Referrals: Angel Hector MD [Primary Care Provider] - - Critical Care Critical Care Time: No Attestation: On 01/14/21, the high probability of a clinically significant, sudden or life threatening deterioration of the following system(s) required my full and direct attention, intervention and personal management. The time I documented below is in addition to time spent performing reported procedures but includes the following listed in this critical care notation. Medical Decision Making - Medical Records Medical records reviewed: Yes: I reviewed the patient's medical records. - Valeriy Inquiry Pt receiving controlled substance: No Vital Signs: 01/14/21 12:26 Temperature 98.2 F Temperature Source Oral Pulse Rate [Right] 72 Respiratory Rate 16 Blood Pressure [Right Arm] 154/100 H Blood Pressure Mean [Right Arm] 118 Blood Pressure Source [Right Arm] Automatic Cuff Blood Pressure Position [Right Arm] Sitting 02 Sat by Pulse Oximetry 100 Oxygen Delivery Method Room Air Orders (Tests/Meds): ED MEDICATIONS Generic Name Dose Route Start Last Admin Trade Name Freq PRN Reason Stop Dose Admin Methocarbamol 1,000 mg 01/14/21 21:00 Methocarbamol 500mg Tablet PO 02/13/21 20:59 BID JEWELS Discontinued Medications Generic Name Dose Route Start Last Admin Trade Name Freq PRN Reason Stop Dose Admin Ketorolac Tromethamine 30 mg 01/14/21 12:46 01/14/21 12:53 Ketorolac 30mg/Ml Vial IM 01/14/21 12:47 30 mg ONCE ONE Administration - Radiology Data #1 Image(s): Hip Image Reviewed: Yes I reviewed the patient's radiology results, Yes I reviewed the patient's radiology image, Yes I reviewed the patient's radiology image w/the ED provider IMPRESSION: No acute findings. - CT Data CT Scan: L-Spine Time Received: 14:[address] Reviewed: Yes: I have reviewed the patient's CT results, I have viewed the radiologist's interpretation Findings Narrative: IMPRESSION: 1. L3-L4: Concentric bulging disc slightly eccentric toward the right with a possible small right paracentral disc herniation. MRI may confirm. This is causing right lateral recess narrowing. 2. L4-5: Asymmetric bulging disc in the central left paracentral foraminal and lateral region on the left. Not significantly changed. This is causing left lateral recess narrowing and there is mild left foraminal narrowing. 3. No acute fracture or dislocation. No lytic or blastic change - Reevaluation(s) Time: 14:05 Reevaluation #1: Patient has evidence of slipped lumbar disc in the lumbar region. I do believe this is causing sciatica lumbar radiculopathy. I do recommend the patient follow-up with PCP for physical therapy. We will also give neurosurgery follow-up. Patient discharged short course analgesics. Given strict return precautions. Verbalized understanding. Medical Decision Narrative: 50-year-old male presenting with some right hip and back pain. Findings are consistent with sciatica, likely secondary to spondylolisthesis or lumbar strain. No evidence of compartment syndrome or spinal cord compression. Work-up initiated. General Adult HPI - General Chief complaint: PAIN Stated complaint: right hip and knee pain Time Seen by Provider: 01/14/21 12:30 Mode of Arrival: Ambulatory Limitations: No Limitations Description of Symptoms (Recalled from ER Triage Doc. by RN): PT c/o severe right hip pain that goes down into his leg and knee. Pt has trouble ambulating.
[2021-01-14 14:21] VITALS: BP 123/74; PULSE 78; RESP 16; TEMP 36.6; O2SAT 98
== END 2021-01-14 14:23 | disposition home or self-care (01) ==
PROVIDERS: Emergency Provider Emergency Medicine; PCP Emergency Medicine
DX: M54.16 Radiculopathy, lumbar region (principal); E11.9 Type 2 diabetes mellitus without complications; I25.10 Atherosclerotic heart disease of native coronary artery without angina pectoris; K21.9 Gastro-esophageal reflux disease without esophagitis; E78.5 Hyperlipidemia, unspecified; I25.2 Old myocardial infarction; I10 Essential (primary) hypertension; Z87.891 Personal history of nicotine dependence; Z79.899 Other long term (current) drug therapy
CPT/HCPCS: 72131; 73502; 96372; 99282; 99283

== ENCOUNTER → 2021-02-04 19:05 | Outpatient (CLI) | payer OTHER, SELFPAY ==
[2021-02-04 20:52] LABS: Benzodiazepines Screen,Urine Negative ng/ml (<200)
[2021-02-04 20:53] LABS: Amphetamine/Metha Screen,Urine Negative ng/ml (<1000); Barbiturates Screen,Urine Negative ng/ml (<200)
[2021-02-04 20:54] LABS: Cannabinoid Screen,Urine Negative ng/ml (<50)
[2021-02-04 20:55] LABS: Cocaine Screen,Urine Negative ng/ml (<300); Methadone Screen,Urine Negative ng/ml (<300)
[2021-02-04 20:56] LABS: Opiate Screen,Urine Negative ng/ml (<300); Phencyclidine Screen,Urine Negative ng/ml (<25)
== END ==
LOC: LAB.DROPOF 19:07
PROVIDERS: Visit Provider Emergency Medicine
DX: Z79.899 Other long term (current) drug therapy (principal)
CPT/HCPCS: 80305

== ENCOUNTER → 2021-02-08 10:23 | Outpatient (CLI) | payer OTHER, SELFPAY ==
--- NOTE | 2021-02-08 10:29 | MR_ITS ---
PROCEDURE: MR LUMBAR SPINE WO CON CLINICAL INDICATION: back pain Right is leg pain numbness and tingling COMPARISON: CR XR CHEST 2V from 05/22/[address] LUMBAR SPINE WO CON from 01/14/2021 TECHNIQUE: Standard multiplanar multiecho sequences are performed without contrast. 3-D MIP and myelographic images are also rendered and reviewed FINDINGS: There is normal alignment. The spinal cord ends at the L1 level. L1-L2: Unremarkable. L2-L3: Mild degenerative disc disease with mild facet hypertrophic change with minimal bulging disc and mild bilateral foraminal narrowing. L3-L4: Degenerative disc disease with bulging disc and a medium to large sized right paracentral disc herniation with inferior extrusion. The disc is extruded inferiorly by 12 mm. There is impingement upon the right L4 nerve root and L5 nerve root. Facet hypertrophic changes are also noted with bilateral lateral recess narrowing and bilateral foraminal narrowing. There is severe right lateral recess narrowing secondary to the herniated disc and the facet hypertrophy. L4-5: Degenerative disc disease with facet and ligamentum hypertrophy with moderate to severe bilateral foraminal narrowing and left lateral recess narrowing. There is minimal bulging disc along with a small central/left paracentral disc protrusion causing some minimal impingement upon the left L5 nerve root. L5-S1: Facet and ligamentum hypertrophy with mild bilateral foraminal narrowing greater on the right. 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 This is better demonstrated on CT. IMPRESSION: 1. L2-L3: Mild degenerative disc disease with mild facet hypertrophic change with minimal bulging disc and mild bilateral foraminal narrowing. 2. L3-L4: Degenerative disc disease with bulging disc. THERE IS A MEDIUM TO LARGE SIZED RIGHT PARACENTRAL DISC HERNIATION WITH INFERIOR EXTRUSION. THE DISC IS EXTRUDED INFERIORLY BY 12 MM. THERE IS IMPINGEMENT UPON THE RIGHT L4 NERVE ROOT AND L5 NERVE ROOT. Facet hypertrophic changes are also noted with bilateral lateral recess narrowing and bilateral foraminal narrowing. There is severe right lateral recess narrowing secondary to the herniated disc and the facet hypertrophy. 3. L4-5: Degenerative disc disease with facet and ligamentum hypertrophy with moderate to severe bilateral foraminal narrowing and left lateral recess narrowing. There is minimal bulging disc along with a small central/left paracentral disc protrusion causing some minimal impingement upon the left L5 nerve root. 4. L5-S1: Facet and ligamentum hypertrophy with mild bilateral foraminal narrowing greater on the right. 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 This is better demonstrated on CT. Dictated by: Anton Medina MD 02/20/2021 14:01 Anton Medina MD in [facility] 02/20/2021 14:01
== END ==
LOC: RAD 10:24
PROVIDERS: PCP Emergency Medicine; Visit Provider Emergency Medicine
DX: M54.9 Dorsalgia, unspecified (principal); M54.16 Radiculopathy, lumbar region
CPT/HCPCS: 72148; 76376

== ENCOUNTER → 2021-02-21 12:35 | Outpatient (POV) | payer OTHER, SELFPAY ==
[2021-02-21 13:04] VITALS: BP 184/90; PULSE 135; RESP 18; O2SAT 98; BMI 20.5
--- NOTE | 2021-02-21 14:13 | HMH.PMCON ---
Assessment and Plan (1) Degenerative joint disease (DJD) of lumbar spine Status: Chronic Category: Medical Code(s): M47.816 - Spondylosis without myelopathy or radiculopathy, lumbar region (2) Lumbar radiculopathy Status: Chronic Category: Medical Code(s): M54.16 - Radiculopathy, lumbar region (3) Lumbar herniated disc Status: Chronic Category: Medical Code(s): M51.26 - Other intervertebral disc displacement, lumbar region (4) Neck pain Status: Chronic Category: Medical Code(s): M54.2 - Cervicalgia (5) Cervical radiculopathy Status: Chronic Category: Medical Code(s): M54.12 - Radiculopathy, cervical region - Assessment and plan all Dx Assessment and Plan for all problems:: The patient and I did review his MRI today. He does have a medium sized herniated disc noted at the L3-L4 area per the MRI report. He also has nerve root impingement to this area. We did discuss options in the clinic. He is unable to tolerate physical therapy due to significant pain which has worsened. He has attempted home stretching with minimal relief. He has used ice and heat therapies which have not been beneficial. He is unable to take anti-inflammatories due to anticoagulation therapy. This is prescribed by Dr. Winston. He does have a history of an PA approximately 4 years ago with 3 cardiac catheterizations since then. He denies any cardiac stenting. Patient says that he is not diabetic. With his symptoms we did discuss undergoing a lumbar epidural steroid injection at L3-L4 area along with a neurosurgical evaluation. Patient is in agreement and would like to proceed. We will seek approval to hold the patient's anticoagulation therapy with Dr. Winston. If approved will proceed with the injection. While awaiting the neurosurgical evaluation, if patient gets significant relief with the injection we will proceed with a series of the injections. Possible side effects of corticosteroids have been discussed with the patient. Risks and benefits of the procedure have been explained to the patient. Patient would like to proceed with the procedure. Patient has been instructed to contact the clinic with any concerns before the next appointment. Dr. House has reviewed this note and agrees with this plan of care. This note was dictated using voice recognition software and make contain errors or omissions. HPI - Data of Consult Patient: new to practice Consult date: 02/21/21 Requesting Physician: Tracy Morelos APRN - Consult Narrative Reason for consult: Low back pain, right hip pain, right knee pain, right leg pain History of present illness: Mr. Henao is a 50 year old male who presents today for consultation for low back pain. The patient reports the pain to be radiating into the right hip, right knee and right leg. He has had the pain for approximately 5 months. The patient says that the pain has progressively worsened He also reports to be having neck pain that radiates into the right arm. He does say raising his right arm above his head gives him significant relief of his neck pain. Patient says the pain feels like a abscessed tooth to the low back . He is able to walk for 5 to 10 minutes and developed significant pain. The pain also worsens when sitting for 5 to 10 minutes requiring the patient to reposition often. He does say lying flat is significant pain to the point he has to use a pillow between his knees and push on his right foot using his left foot to get relief. He denies any recent trauma, surgeries or fractures to his spine. He denies saddle anesthesia or changes in bowel or bladder habit. He does rate his pain a 7 or an 8 out of 10. Patient did undergo imaging of his lumbar spine. He does say leaning forward gives him significant relief. The patient has tried home stretching with minimal relief. He has also tried ice and heat therapies. The patient is unable to take anti-inflammatories due to taki
== END ==
PROVIDERS: Visit Provider Clinical Nurse Specialist Family Health
DX: M47.896 Other spondylosis, lumbar region (principal); M54.16 Radiculopathy, lumbar region; M51.26 Other intervertebral disc displacement, lumbar region; M54.12 Radiculopathy, cervical region
CPT/HCPCS: 99212; G0463

== ENCOUNTER 2021-03-08 12:57 | Day surgery (SDC) | payer OTHER, SELFPAY ==
[2021-03-08 13:05] VITALS: BP 116/86; PULSE 89; RESP 18; TEMP 36.4; O2SAT 98; BMI 23.2
--- NOTE | 2021-03-08 13:38 | HMH.PMPROC ---
- Procedure Date: 03/08/21 Time: 13:38 Anesthesiologist:: Ella Pryor MD Complications:: None Pre-procedure Diagnosis:: Degenerative disc disease of lumbar spine with lumbar radiculopathy Post-procedure Diagnosis:: Same Indications for Procedure:: This patient is a very pleasant 50-year-old white male who presented with chronic low back pain rating to his legs related to the above diagnosis. He has tried and failed conservative treatment getting oral pain medications and home stretching program for greater than 6 weeks. The plan for today is for the patient to undergo lumbar epidural steroid injection under fluoroscopy at L5-S1. Procedure Details:: Informed consent was obtained and the risk and benefits of the procedure was explained to the patient. The patient was taken to the procedure room. The patient was placed prone on the procedure table. The patient was prepped and draped in sterile fashion. C-arm fluoroscopy was used to view the lumbar spine. Skin and subcutaneous tissues were anesthetized using lidocaine. I placed an 18-gauge epidural needle and advanced into the L5-S1 interspace using fluoroscopic guidance and [id number] to air and saline. After confirmation of needle placement in the epidural space with dye I injected 1 mL of lidocaine 1.0% with Depo-Medrol 80 mg. Patient tolerated the procedure well with no complications. Plan and Disposition:: We will follow-up with this patient in 2 weeks. Will reevaluate pain symptoms at that time.
[2021-03-08 13:41] VITALS: BP 135/84; PULSE 88; RESP 18; O2SAT 97
[2021-03-08 13:42] VITALS: BP 144/88; PULSE 86; RESP 18; O2SAT 97
[2021-03-08 14:00] VITALS: BP 133/89; PULSE 89; RESP 20; O2SAT 98
== END 2021-03-08 14:00 | disposition home or self-care (01) ==
LOC: SC.PAINP 12:58
PROVIDERS: PCP Emergency Medicine; Visit Provider Anesthesiology Pain Medicine
DX: M51.16 Intervertebral disc disorders with radiculopathy, lumbar region (principal); I25.2 Old myocardial infarction; E78.5 Hyperlipidemia, unspecified; I10 Essential (primary) hypertension; K21.9 Gastro-esophageal reflux disease without esophagitis; E11.9 Type 2 diabetes mellitus without complications; I25.10 Atherosclerotic heart disease of native coronary artery without angina pectoris; F41.9 Anxiety disorder, unspecified; F32.A Depression, unspecified; G43.909 Migraine, unspecified, not intractable, without status migrainosus; Z72.0 Tobacco use; Z87.442 Personal history of urinary calculi
CPT/HCPCS: 62323; J1040; Q9966

== ENCOUNTER → 2021-03-21 14:07 | Outpatient (CLI) | payer OTHER, SELFPAY | PROVIDERS: Visit Provider Nurse Practitioner Family | DX: Z20.822 Contact with and (suspected) exposure to COVID-19 (principal) | CPT/HCPCS: C9803; U0003; U0005 ==

== ENCOUNTER → 2021-03-28 13:09 | Outpatient (POV) | payer OTHER, SELFPAY ==
--- NOTE | 2021-03-28 13:24 | P.CONS_ITS ---
[facility] Pain Management SOAP Note Subjective:: Patient is a pleasant 50-year-old male who comes in here today for follow-up after a lumbar epidural steroid injection #1. Patient is currently being treated for degenerative disc disease of the lumbar spine with lumbar radiculopathy. After the procedure, patient states that he had about 70% relief and rates his pain a 6 out of 10 today. Patient says that it takes about 5 days for him to feel any relief. Patient says that he still has some pain on his low back pain that radiates to his right leg. Patient has tried and failed oral medications and home stretching program for greater than 6 weeks. His Valeriy is [phone] with an active morphine equivalent of 60. Drug screens have been revi ewed and appropriate. Review of Systems General: No recent weight changes, no fever, no sleep disturbances Respiratory: No cough, no shortness of air, no recurring pulmonary infections Cardiovascular/peripheral vascular: No chest pain, no palpitations, no edema, no shortness of breath Gastrointestinal: No new onset incontinence, normal bowel movements reported Genitourinary: No new onset incontinence Musculoskeletal: Low back pain Psychiatric: [Normal mood/affect] Neurological: [Denies weakness in extremities], [denies balance issues] Objective:: Physical exam General: Alert and oriented x3, no acute distress, pleasant and cooperative Lungs: Respirations even and unlabored, symmetrical chest expansion Eyes: PERRL Musculoskeletal: Flexion and extension of lumbar [spine] somewhat guarded secondary to pain, [antalgic gait noted] Neurological: Speech clear, no gross sensory deficit Assessment:: Degenerative disc disease of the lumbar spine lumbar radiculopathy Plan:: We will schedule the patient for another lumbar epidural steroid injection #2. Patient is currently not on any blood thinners. Risks and benefits of the procedure have been explained to the patient. Patient would like to proceed with the procedure. Patient has been instructed to contact the clinic with any concerns before the next appointment. Dr. House has reviewed this note and agrees with this plan of care. This note was dictated using voice recognition software and make contain errors or omissions. [facility] History Medical History: Reports:: Coronary Artery Disease, Gastroesophageal Reflux Disease(GERD), Hyperlipidemia, Hypertension, Kidney Stones, Myocardial Infarction Denies:: Cancer, Diabetes Mellitus Type 1, Diabetes Mellitus Type 2, Internal Pacemaker, MRSA, Seizures *Have you ever received a pneumonia vaccine?: No *Have you received a flu vaccine this season?: No Other Medical History: Denies: Blood Transfusion Reaction Laterality Cases: Bilateral: Lumpectomy, Other Other Surgeries: Yes: Cardiac Catheterization, Coronary Stent, Other (Kidney Stone Removal, Mass from chestx3). No: Pacemaker Amputation: No Fractures: No - *Social History Smoking Status: Former smoker Tobacco Type: smokeless tobacco # Packs/Day (cigarettes): 1 Alcohol Intake: never Alcohol Intake Frequency:: 3 or more drinks per day Substance Use Type: denies use *Occupational Status:: employed Housing: house Household Members: spouse *Travel in the last 8 weeks: Inside the [place] Family Hx:: Heart Attack, Coronary Artery Disease
[2021-03-28 13:43] VITALS: BP 120/81; PULSE 83; RESP 18; O2SAT 96; BMI 25.0
== END ==
PROVIDERS: Visit Provider Clinical Nurse Specialist Family Health
DX: M51.16 Intervertebral disc disorders with radiculopathy, lumbar region (principal)
CPT/HCPCS: 99212; G0463

== ENCOUNTER → 2021-04-11 09:43 | Outpatient (CLI) | payer OTHER, SELFPAY ==
[2021-04-11 10:17] LABS: Basophils # 0.1 K/mm3 (0-0.2); Basophils % 1.2 % (0.1-2.0); Eosinophils # 0.1 K/mm3 (0.0-0.4); Hematocrit 48.7 % (42.0-52.0); Hemoglobin 15.8 g/dL (14.1-18.0); Lymphocytes % 23.1 % (10-50); Mean Corpuscular HGB Conc 32.5 g/dL (31.8-35.4); Mean Corpuscular Hemoglobin 34.4 pg (27.0-31.2); Mean Corpuscular Volume 105.6 fl (80-94); Mean Platelet Volume 7.4 fl (7.4-10.4); Monocytes # 0.4 K/mm3 (0.1-1.0); Monocytes % 4.5 % (1.7-9.3); Neutrophils % 70.2 % (37.0-80.0); Platelet Count 292 K/mm3 (142-424); Red Blood Count 4.61 M/mm3 (4.60-6.20); Red Cell Distribution Width 16.2 % (11.5-17.5); White Blood Count 8.5 K/mm3 (4.8-10.8)
[2021-04-11 10:34] LABS: Chloride 100 mmol/L (98-107); Sodium 139 mmol/L (136-145)
[2021-04-11 10:37] LABS: Alanine Aminotransferase 48 U/L (12-78); Albumin/Globulin Ratio 1.2 (1.1-1.8); Alkaline Phosphatase 120 U/L (38-126); Aspartate Amino Transferase 89 U/L (17-59); Bilirubin,Direct 0.4 mg/dl (0.0-0.4); Bilirubin,Indirect 0.5 mg/dL (0.0-0.9); Bilirubin,Total 0.9 mg/dl (0.2-1.3); Bilirubin,Unconjugated 0.5 mg/dL (0.0-1.1); Blood Urea Nitrogen 6 mg/dl (9-20); Calcium 9.1 mg/dl (8.4-10.2); Carbon Dioxide 35 mmol/L (22.0-30.0); Estimated Glomerular Filt Rate 89 ml/min (>60); GFR (African American) 108 ML/MIN (>60); Globulin 3.3 g/dL (1.3-3.2); Glucose 167 mg/dl (74-100); Total Protein,Serum 7.3 g/dl (6.3-8.2)
[2021-04-11 11:13] LABS: Ferritin 829 ng/ml (17.9-464)
[2021-04-12 06:13] LABS: AFP, Tumor Marker 5.7 ng/mL (0.0-8.3)
== END ==
PROVIDERS: Visit Provider Internal Medicine Hematology & Oncology
DX: R16.0 Hepatomegaly, not elsewhere classified (principal)
CPT/HCPCS: 36415; 80053; 80076; 82105; 82728; 85025

== ENCOUNTER → 2021-04-17 11:18 | Outpatient (CLI) | payer OTHER, SELFPAY ==
--- NOTE | 2021-04-17 11:20 | CT_ITS ---
PROCEDURE: CT ABDOMEN PELVIS W CON CLINICAL INDICATION: ENLARGED LIVER COMPARISON: None TECHNIQUE: IV Contrast: 75ML Isovue 370 Oral Contrast None Axial images obtained with sagittal and coronal reformats. All CT scans at the facility use one or more dose reduction, viz: automated exposure control, ma/kV adjustment per patient size (including targeted exams where dose is matched to indication, i.e. head), or iterative reconstruction technique. FINDINGS: LOWER THORAX: No acute finding ABDOMEN & PELVIS: Liver is enlarged with a maximum transverse dimension of 28 cm. There is heterogeneous decreased attenuation of the liver consistent with fatty liver most prominent in the caudate lobe. In the right hepatic lobe posteriorly, segment 7 there is a 6 mm hypodense area nonspecific. Spleen is upper limits normal in size at 12 cm. The adrenal glands, pancreas, and kidneys have an unremarkable appearance. No intestinal obstruction or free air. Unremarkable appendix. There is colonic diverticulosis involving the descending colon and sigmoid colon. There is mild diffuse area of thickening involving the sigmoid colon without stranding of the pericolic fat and no pericolic collections. No pelvic mass or abnormal fluid collection. No acute bony findings. There is some bony exostosis along the inferior aspect of the left pubic bone and could be due to old injury. IMPRESSION: Hepatomegaly with hepatic steatosis. Small hypodensity right hepatic lobe nonspecific. Colonic diverticulosis without diverticulitis. Thickening of the sigmoid colon. This is nonspecific and could be due to nondistention or colitis. Dictated by: Anton Medina MD 04/18/2021 11:55 Anton Medina MD in [place] 04/18/2021 11:55
== END ==
PROVIDERS: PCP Emergency Medicine; Visit Provider Internal Medicine Hematology & Oncology
DX: R16.0 Hepatomegaly, not elsewhere classified (principal)
CPT/HCPCS: 74177; Q9967

== ENCOUNTER 2021-06-18 18:05 | Emergency (ER) | payer OTHER, SELFPAY ==
[2021-06-18 18:07] VITALS: BP 191/119; PULSE 105; RESP 20; TEMP 36.8; O2SAT 100; BMI 26.3
--- NOTE | 2021-06-18 19:23 | HMH.EDGENADL ---
ED Disposition Clinical Impression: Lumbar radiculopathy, Lumbar disc disease, Uncontrolled hypertension Disposition: Home, Self-Care Condition on Discharge: Good Instructions: DI for Back Pain With Sciatica, DI for Lumbar Radiculopathy Additional Instructions: Prednisone as prescribed. Continue oxycodone as prescribed. Follow-up with your primary care doctor or Dr. House. Call tomorrow. Resume your usual blood pressure medication tomorrow. Call your primary care doctor for follow-up of your blood pressure. Additional instructions for BACK PAIN: See your physician as soon as possible for further evaluation. Return immediately if back pain becomes intolerable, or if fever, numbness or weakness of your legs, loss of control of your bowels or bladder. Referrals: Angel Hector MD [Primary Care Provider] - - Critical Care Critical Care Time: No Attestation: On 06/18/21, the high probability of a clinically significant, sudden or life threatening deterioration of the following system(s) required my full and direct attention, intervention and personal management. The time I documented below is in addition to time spent performing reported procedures but includes the following listed in this critical care notation. Medical Decision Making - Medical Records Medical records reviewed: Yes: I reviewed the patient's medical records. MR Comment: Reviewed prior lumbar MRI report, see below. - Valeriy Inquiry Pt receiving controlled substance: Yes Valeriy was queried for this patient: Yes (On oxycodone 10 mg) Risks and benefits of using a controlled substance: were discussed with pt by me Vital Signs: 06/18/21 18:07 Temperature 98.3 F Temperature Source Oral Pulse Rate [Left Radial] 105 H Respiratory Rate 20 Blood Pressure [Right Arm] 191/119 H Blood Pressure Mean [Right Arm] 143 Blood Pressure Source [Right Arm] Automatic Cuff Blood Pressure Position [Right Arm] Sitting 02 Sat by Pulse Oximetry 100 Oxygen Delivery Method Room Air Orders (Tests/Meds): ED MEDICATIONS Discontinued Medications Generic Name Dose Route Start Last Admin Trade Name Freq PRN Reason Stop Dose Admin Amlodipine Besylate 5 mg 06/18/21 19:24 Amlodipine 5mg Tablet PO 06/18/21 19:25 ONCE ONE Hydromorphone HCl 1 mg 06/18/21 19:23 Hydromorphone 2mg/Ml Syringe IV 06/18/21 19:24 ONCE ONE Irbesartan 75 mg 06/18/21 19:25 Irbesartan 75mg Tablet PO 06/18/21 19:26 ONCE ONE Ketorolac Tromethamine 30 mg 06/18/21 18:44 06/18/21 18:45 Ketorolac 30mg/Ml Vial IV 06/18/21 18:45 30 mg ONCE ONE Administration Methylprednisolone Sodium Succinate 125 mg 06/18/21 18:44 06/18/21 18:45 Methylprednisolone Sod Succ 125mg Vial IV 06/18/21 18:45 125 mg ONCE ONE Administration Morphine Sulfate 4 mg 06/18/21 18:54 06/18/21 18:55 Morphine 4mg/Ml Syringe IV 06/18/21 18:55 4 mg ONCE ONE Administration Ondansetron HCl 4 mg 06/18/21 18:54 06/18/21 18:55 Ondansetron 4mg/2ml Vial IV 06/18/21 18:55 4 mg ONCE ONE Administration PROCEDURE: MR LUMBAR SPINE WO CON CLINICAL INDICATION: back pain Right is leg pain numbness and tingling COMPARISON: CR XR CHEST 2V from 05/22/[address] LUMBAR SPINE WO CON from 01/14/2021 TECHNIQUE: Standard multiplanar multiecho sequences are performed without contrast. 3-D MIP and myelographic images are also rendered and reviewed FINDINGS: There is normal alignment. The spinal cord ends at the L1 level. L1-L2: Unremarkable. L2-L3: Mild degenerative disc disease with mild facet hypertrophic change with minimal bulging disc and mild bilateral foraminal narrowing. L3-L4: Degenerative disc disease with bulging disc and a medium to large sized right paracentral disc herniation with inferior extrusion. The disc is extruded inferiorly by 12 mm. There is impingement upon the right L4 nerve root and L5 nerve root. Facet hyper
[2021-06-18 20:12] VITALS: BP 170/110; PULSE 90
[2021-06-18 20:24] VITALS: BP 149/112; PULSE 93; RESP 18; TEMP 36.9; O2SAT 99
== END 2021-06-18 20:28 | disposition home or self-care (01) ==
PROVIDERS: Emergency Provider Emergency Medicine; PCP Emergency Medicine
DX: M54.16 Radiculopathy, lumbar region (principal); I10 Essential (primary) hypertension; E11.9 Type 2 diabetes mellitus without complications; K21.9 Gastro-esophageal reflux disease without esophagitis; E78.5 Hyperlipidemia, unspecified; I25.2 Old myocardial infarction; I25.10 Atherosclerotic heart disease of native coronary artery without angina pectoris; Z88.8 Allergy status to other drugs, medicaments and biological substances
CPT/HCPCS: 96374; 96375; 99284; J2405

== ENCOUNTER 2021-06-21 09:30 | Outpatient (RCR) | payer OTHER, SELFPAY ==
--- NOTE | 2021-05-07 17:21 | HMH.PTOPEV ---
PT Outpatient Evaluation Rehab PT Outpatient Evaluation Start: 05/07/21 16:22 Freq: Status: Active Protocol: Document 05/07/21 17:02 DAVIN (Rec: 05/07/21 17:21 MARSHALRICHAR [id number]) Electronically Signed By Jose Stevens, PT 05/07/21 17:02 Outpatient Therapy Subjective History Subjective History Patient is a 51 year old male presenting to outpatient PT with reports of chronic LBP with RLE radicular symptoms starting 01/2021. Symptoms of insidious onset. Most recent imaging indicates multi-level bulging discs, DDD and facet hypertrophy. Patient most recently received a round of injections that has provided some significant relief. Comorbidities include hx of HTN, diabetes, kidney stones, multiple cardiac caths. Chief Complaint Pain,Stiff,Paresthesia, Weakness Symptom Type Ache,Throb,Numbness,Tingling Symptoms Relieved By OTC Meds,Prescription Meds Symptoms Aggravated By Standing,Bending/Stooping, Physical Activity,Walking, Lifting Prior Functional Limitations None Current Functional Limitations Lifting,Housework,Sleeping, Standing,Walking,Bending/ Stooping Symptom Description Constant but Variable Level of pain today (0-10) 1 Pain scale - at its best (0-10) 1 Pain scale - at its worst (0-10) 10 Lumbopelvic Eval Posture Thoracic Spine Posture Standing Position Increased Kyphosis Lumbar Spine Posture Standing Position Decreased Lordosis Assistive device Assistive Devices None / NA Palapation tenderness bilateral lumbar spinal tenderness Yes: L4-S1 2/4 paraspinal tenderness Yes: Accessory Movement L4 bilateral L5 bilateral Range of Motion Lumbar Spine Active Flexion Range of 58 Motion (degrees) Lumbar Spine Active Extension Range of 16 Motion (degrees) Left Lumbar Spine Lateral Flexion Active 22 Range of Motion (degrees) Right Lumbar Spine Lateral Flexion 25 Active Range of Motion (degrees) Lumbar Spine ROM Limitations Soft Tissue Tightness,Bony Restriction Manual Muscle Test Left Knee Extension Strength Grade 5 Normal Knee Flexion Strength Grade 5 Normal Hip Flexion Strength Grade
--- NOTE | 2021-06-07 10:54 | HMH.RHREAS ---
Rehab Reassessment Rehab OP Re-assessment Start: 06/07/21 10:46 Freq: Status: Active Protocol: Document 06/07/21 10:46 DAVIN (Rec: 06/07/21 10:54 KRISTOFERPERRY [id number]) Electronically Signed By Jose Stevens, PT 06/07/21 10:46 Rehab Re-assessment Subjective Subjective Patient reports 50% improvement since start of care. Objective Objective Notes AROM: flx 63; ext 17; SBr 24; SBl 24 MMT: WNL except for R ankle DF 4/5 Pain: 2/10 today; 8/10 at worst over past week Neuro: patient continues to demonstrate constant N/T in the L5/S1 dermatome distally, pain in L4/5 dermatomes proximally Assessment Progress Assessment Progressing as Expected Assessment Notes Objective improvements as noted above. Patient continues to have constant NT and foot drop of the RLE, with intermittent pain as noted. Lumbar spine pain and mobility has improved. Patient returned to work for approx 3 weeks and then had to go back off of work secondary to symptom exacerbation with work related duties. Patient would benefit from continuing skilled PT services in order to address functional limitations with prolonged standing/walking, bending and lifting activities. Patient goals met STG 2 Goals Not Met All others Revised Goals NA Plan Plan Continue with current POC. Frequency of Therapy 2x/week Duration of therapy 4 weeks Time and Billing Re-Eval Time 15 Re-Eval Billing Units 1 PHYSICIAN CERTIFICATION: I certify the specified therapy services for Karsten Henao are required, authorized, and reviewed every 30 days.
== END 2021-06-21 09:35 | disposition home or self-care (01) ==
LOC: PT 09:30
PROVIDERS: PCP Emergency Medicine; Visit Provider Emergency Medicine
DX: M54.50 Low back pain, unspecified (principal)
CPT/HCPCS: 97010; 97012; 97014; 97110; 97163; 97164; G0283

== ENCOUNTER 2021-06-21 10:23 | Day surgery (SDC) | payer OTHER, SELFPAY ==
[2021-06-21 10:24] VITALS: BP 179/100; BP 185/98; PULSE 113; PULSE 78; RESP 20; TEMP 37.1; O2SAT 95; O2SAT 98; BMI 26.3
[2021-06-21 10:36] VITALS: BP 180/98; PULSE 114; RESP 20; O2SAT 96
--- NOTE | 2021-06-21 10:45 | HMH.PMPROC ---
- Procedure Date: 06/21/21 Time: 10:45 Anesthesiologist:: Jerry House MD Complications:: None Pre-procedure Diagnosis:: Degenerative disc disease of lumbar spine with lumbar radiculopathy symptoms with large disc herniation at L3-L4 Post-procedure Diagnosis:: Same Indications for Procedure:: This patient is a pleasant 51-year-old white male who we have been treating for low back pain with lumbar radiculopathy symptoms. He did have a epidural steroid injection several weeks ago which gave him 70% relief after a few days. He did get good relief for over a week and was able to go back to work. His pain is now flared up over the last week with radiation down the right leg. His MRI does show large disc herniation at L3-L4 with disc extrusion inferiorly. I do believe this is the source of his pain. We will do a repeat lumbar pleural steroid injection today. We will also start him on gabapentin 3 mg 3 times a day and put him on some oral prednisone. Procedure Details:: Informed consent was obtained and the risk and benefits of the procedure was explained to the patient. The patient was taken to the procedure room. The patient was placed prone on the procedure table. The patient was prepped and draped in sterile fashion. C-arm fluoroscopy was used to view the lumbar spine. Skin and subcutaneous tissues were anesthetized using lidocaine. I placed an 18-gauge epidural needle and advanced into the L4-L5 interspace using fluoroscopic guidance and [id number] to air. After confirmation of needle placement in the epidural space with dye I injected 2 mL of lidocaine 1.5% with Depo-Medrol 80 mg. Patient tolerated the procedure well with no complications. Plan and Disposition:: We will start him on prednisone 20 mg twice a day for 5 days. We will also start him on gabapentin 300 mg 3 times a day. We will schedule a neurosurgical evaluation. He did have a previous appoint with Dr. De La O which he canceled. He did would like to go back to Dr. De La O. We will reschedule his appointment with Dr. De La O for neurosurgical evaluation.
[2021-06-21 10:57] VITALS: BP 190/105; PULSE 110; RESP 20; O2SAT 95
== END 2021-06-21 10:59 | disposition home or self-care (01) ==
LOC: SC.PAINP 10:24
PROVIDERS: PCP Emergency Medicine; Visit Provider Anesthesiology
DX: M51.16 Intervertebral disc disorders with radiculopathy, lumbar region (principal); M51.26 Other intervertebral disc displacement, lumbar region; I10 Essential (primary) hypertension; I25.10 Atherosclerotic heart disease of native coronary artery without angina pectoris; E11.9 Type 2 diabetes mellitus without complications; K21.9 Gastro-esophageal reflux disease without esophagitis; Z88.8 Allergy status to other drugs, medicaments and biological substances
CPT/HCPCS: 62323; J1040; Q9966

== ENCOUNTER → 2021-07-19 10:54 | Outpatient (CLI) | payer OTHER, SELFPAY ==
[2021-07-19 15:09] LABS: Amphetamine/Metha Screen,Urine Negative ng/ml (<1000)
[2021-07-19 15:10] LABS: Barbiturates Screen,Urine Negative ng/ml (<200)
[2021-07-19 15:12] LABS: Benzodiazepines Screen,Urine Negative ng/ml (<200); Cannabinoid Screen,Urine Negative ng/ml (<50)
[2021-07-19 15:13] LABS: Cocaine Screen,Urine Negative ng/ml (<300)
[2021-07-19 15:14] LABS: Methadone Screen,Urine Negative ng/ml (<300); Opiate Screen,Urine Negative ng/ml (<300)
[2021-07-19 15:15] LABS: Phencyclidine Screen,Urine Negative ng/ml (<25)
== END ==
LOC: LAB.DROPOF 07-22 10:56
PROVIDERS: Visit Provider Emergency Medicine
DX: M54.50 Low back pain, unspecified (principal)
CPT/HCPCS: 80305

== ENCOUNTER 2021-08-16 19:51 | Emergency (ER) | payer OTHER, SELFPAY ==
[2021-08-16 20:45] VITALS: BP 131/97; PULSE 113; RESP 19; TEMP 37; O2SAT 95; BMI 24.3
[2021-08-16 21:24] VITALS: BP 131/97; PULSE 113; RESP 19; TEMP 37; O2SAT 95
--- NOTE | 2021-08-16 21:31 | HMH.EDUTC ---
[facility] [place] Disposition Clinical Impression: Finger laceration Qualifiers: Encounter type: initial encounter Finger: middle finger Damage to nail status: without damage Foreign body presence: without foreign body Laterality: left Qualified Code(s): S61.213A - Laceration without foreign body of left middle finger without damage to nail, initial encounter Disposition: Home, Self-Care Condition on Discharge: Good Instructions: Laceration Repair, DI for Laceration Repair -- Simple Additional Instructions: Suture instructions: You have required stitches today. Please read the following instructions so you know how to care for them: 1. Keep wound area dry for the first 24 hours. 2 May clean gently with mild soap and water, after 48 hours to prevent crusting over suture knots. 3. You may shower if your provider gives permission but do not take a bath until the skin is healed.. 4. Never leave a wet dressing or Band-Aid on your stitches as this allows bacteria to reach the area and may cause infection. Band-aids can cause the wound to sweat and not recommended to wear for long periods of time Watch for signs of infection: Increasing redness, tenderness or warmth around the suture site Unusual swelling around the site Appearance of pus around each suture or any red streaks Fever If you develop any of the above signs or symptoms of infection, Follow up with Family Physician immediately 5. Suture removal in _10-12___days 6. Return to [facility] or follow up with family doctor for removal. This can be done by any medical provider during regular hours on Thursday through Thursday, by appointment. Prescriptions: Amoxicillin/Potassium Clav [Amox-Clav 875-125 mg Tablet] 1 tab PO BID #20 tab Transmission Status: Pending to [facility] predniSONE [Prednisone 20mg Tab] 20 mg PO BID 5 Days #10 tab Transmission Status: Pending to [facility] Referrals: Angel Hector MD [Primary Care Provider] - As needed Time of Disposition: 21:36 Medical Decision Making - Valeriy Inquiry Pt receiving controlled substance: No Valeriy was queried for this patient: No Vital Signs: 08/16/21 20:45 08/16/21 21:24 Temperature 98.6 F 98.6 F Temperature Source Oral Pulse Rate 113 H Pulse Rate [Right Brachial] 113 H Respiratory Rate 19 19 Blood Pressure 131/97 H Blood Pressure [Right Arm] 131/97 H Blood Pressure Mean [Right Arm] 108 Blood Pressure Source [Right Arm] Automatic Cuff Blood Pressure Position [Right Arm] Sitting 02 Sat by Pulse Oximetry 95 Oxygen Delivery Method Room Air [facility] [place] HPI - General Stated complaint: AO 1915 lac L middle finger Time Seen by Provider: 08/16/21 21:31 Mode of Arrival: Ambulatory Source of Information: Patient, Spouse Limitations: No Limitations Description of Symptoms (Recalled from Triage Doc. by RN): PATIENT C/O LACERATION TO LEFT MIDDLE FINGER AFTER CUTTING IT WITH A KNIFE TODAY. HE STATES HE IS UP TO DATE ON TDAP HEENT Symptoms (Recalled from RN notes): No Resp Symptoms (Recalled from RN notes): No Skin Symptoms (Recalled from RN notes): Yes MS Symptoms (Recalled from RN notes): No Functional Status (Recalled from RN notes): WNL - History of Present Illness Provider Complaint: Patient states that he was cutting something with a knife when it slipped and cut the pad on his left middle finger States that he looked at it and knew it needed stitches so the brought him in States that also he has been having some cough and chest congestion - Related Data Home Medications Medication Instructions Recorded Confirmed Amlodipine Besylate 5 mg PO DAILY 03/08/21 07/19/21 Aspirin [Low Dose Aspirin EC] 81 mg PO DAILY 03/08/21 07/19/21 Furosemide [Furosemide 40MG tAB*] 40 mg PO DAILY 03/08/21 07/19/21 Losartan Potassium [Cozaar 25mg 25 mg PO DAILY 03/08/21 07/19/21 Tablets] Previous Rx's Medication Instructions Recorded Gabapentin [Neurontin 300mg 300 mg PO TID 30 Days
== END 2021-08-16 21:49 | disposition home or self-care (01) ==
PROVIDERS: Emergency Provider Nurse Practitioner; PCP Emergency Medicine
DX: S61.213A Laceration without foreign body of left middle finger without damage to nail, initial encounter (principal); W26.0XXA Contact with knife, initial encounter; I25.2 Old myocardial infarction; I10 Essential (primary) hypertension; I25.10 Atherosclerotic heart disease of native coronary artery without angina pectoris; E11.9 Type 2 diabetes mellitus without complications; K21.9 Gastro-esophageal reflux disease without esophagitis; E78.5 Hyperlipidemia, unspecified
CPT/HCPCS: 12001; 99213; G0463

== ENCOUNTER → 2021-08-22 07:39 | Outpatient (CLI) | payer OTHER, SELFPAY ==
--- NOTE | 2021-08-22 | CA_ITS ---
APPROVED REPORT Exam: Pharmacologic Technologist: Koki Al, Ht: 5 ft 8 in Wt: 173 lbs BSA: 1.92 m2 HR: 93 bpm BP: 124/87 mmHg Rhythm: NSR, SLOW R WAVE PROGRESSION, LOW VOLTAGE QRS, PVCS Medical History Medical History: HTN, Hyperlipidemia, Smoking Medications: Amlodipine,,,,, Omeprazole,,,,, Aspirin,,,,, Metformin,,,,, Losartan,,,,, Prednisone,,,,, OxYCODONE,,,,, AmOXICILLIAN,,,,, PolyethYLENE,,,,, Potassium,,,,, Furosemide,,,,, Allergies: LORATADINE, ISOSORBIDE, ATORVASTATIN, SPIRONALACTONE Cardiac Risk Factors: HTN, Hyperlipidemia, Diabetes Stress Test Details Test: LEXISCAN HR Resting HR: 93 bpm Max Heart Rate (APMHR): 170.852836 bpm Max HR Achieved: 105 bpm Target HR (85% APMHR): 144.863035 bpm % of APMHR: 61.76 Recovery HR: 101 bpm BP Resting BP: 124/87 mmHg Max BP: 126/79 mmHg Recovery BP: 124.0/83.0 mmHg ECG Resting ECG: NSR, SLOW R WAVE PROGRESSION, LOW VOLTAGE QRS, PVCS Clinical Exercise duration: 04:01 min Highest Stage Achieved: Exercise capacity: 1.0 METs Stress ECG Conclusion PT HAD MILD SOA, NAUSEA, AND HEAD DISCOMFORT. OCC PVC. NO SIGNIFICANT CHANGES. UNREMARKABLE LEXISCAN STRESS. MYOVIEW IMAGES REPORTED SEPATELY. Test Summary REST . . . . . . . Sitting REST 02:59 . . 93 . 124/ 87 . . Stage 1 01:00 . . 103 . . . . Stage 2 01:00 . . 103 . 126/ 79 . . Stage 3 01:00 . . 103 . 115/ 79 . . Stage 4 01:00 . . 100 . 118/ 79 . . Stage 4 01:01 . . 100 . 118/ 79 . Stop exercise at 04:01 RECOVERY 01:00 . . 100 . . . . RECOVERY 02:00 . . 98 . 114/ 82 . . RECOVERY 03:00 . . 96 . 114/ 82 . . RECOVERY 03:34 . . 99 . 124/ 83 . . Electronically signed by : Rickey Crenshaw MD 08/23/2021 09:31:17
--- NOTE | 2021-08-22 07:40 | NM_ITS ---
APPROVED REPORT Exam: Nuclear Stress Test Indication: chest pain..short of breath..fatigue Patient Location: Outpatient Stress Tech: Koki CLAYTON Tech:Lindsay Lang ANNABELLEDa RT(R)(N) Ht: 5 ft 8 in Wt: 173 lbs HR: 93 bpm BP: 124/87 mmHg BSA: 1.92 m2 BMI: 26.3 History: chest pain..short of breath..fatigue Procedure: Patient received a 0.4 mg of intravenous Lexiscan, resting heart rate 103 bpm, resting blood pressure 124/87 mmHg, with Lexiscan maximum heart rate achived was 103 bpm which is Less than 85 % of the maximum predicted heart rate and blood pressure was 126/79 mmHg. With Lexiscan, patient denied any complaint of chest pain. Electrocardiogram Resting electrocardiogram shows sinus rhythm, with Lexiscan there is less than 1.[address] segment depression noted from the baseline EKG. The EKG portion of the Lexiscan is nondiagnostic. Cardiac Stress and Resting SPECT Images: Cardiac Stress and Resting SPECT images were obtained using technetium 99m Myoview 32.1 mCi stress and 10.98 mCi at rest. Gated SPECT for analysis of segmental wall motion and calculation of the ejection fraction also done. Prone images were also obtained. Cardiac stress and resting SPECT images show uniform myocardial activity without segmental perfusion abnormality, computer derived ejection fraction is 60% with no regional wall motion abnormality, right ventricle is normal size and contractility. Conclusion: 1. The EKG portion of the Lexiscan is nondiagnostic. 2. No scintigraphic evidence of reversible ischemia seen, computer derived ejection fraction is 60% with no regional wall motion abnormality, right ventricle is normal size and contractility. 3. Normal Lexiscan Myoview study. Electronically signed by : iRckey Crenshaw MD 08/23/2021 09:34:07
--- NOTE | 2021-08-22 07:41 | CA_ITS ---
APPROVED REPORT EXAM: Comprehensive 2D, Doppler, and color-flow Echocardiogram Tab Builder: Moon Hamilton CRT Ht: 5 ft 8 in Wt: 173lbs BSA: 1.92 BP: 117/79 mmHg Indications: Chest Pain, Diabetes, CAD, Hyperlipidemia, Hypertension/HDD 2D Dimensions LVOT 1.86 cm (M/F) 1.5-2.5 LA Volume 26.40 mL LA Volume Index 13.80 mL/m2 (M/F) 16-34 M-Mode Dimensions RVDd 2.21 cm (0.9-2.6) LA Diam 3.55 cm (1.9-4.0) LVDd 5.11 cm (3.5-5.7) Ao Diam 3.52 cm (2.0-3.7) LVDs 3.32 cm (3.5-5.7) IVSd 1.29 cm (0.6-1.1) PWd 0.75 cm (0.6-1.1) EF (Teich) 64.00% FS 35.00% EDV (Teich) 124.40 mL TAPSE 2.02 (<1.7) ESV (Teich) 44.80 mL LV Diastology E Decel Time 97.00 (160-240 msec) E/A Ratio 0.59 MED E' 5.30 (< 7 cm/sec) MED A' 11.50 cm/s E'/MED E' Ratio 11.08 (>14) LAT E' 11.10 (<10 cm/sec) LAT A' 9.90 cm/s E/LAT E' Ratio 5.29 (>14) Aortic Valve AO Peak GR. 8.60 mmHg Mitral Valve MV A Velocity 100.00 (40-130 cm/s) E/A Ratio 0.59 MV Decel. Time 97.00 (160-240 ms) MV PHT 63.00 ms Pulmonary Valve PV Peak Velocity 92.00 (50-150 cm/s) Tricuspid Valve TR P. Velocity 226.00 cm/s RAP Estimate 10.00 mmHg RVSP 30.40 mmHg Left Ventricle Left atrium is mildly enlarged, left ventricle is normal size, mild concentric left ventricular hypertrophy, estimated ejection fraction 55% with no regional wall motion abnormality, grade 1 diastolic dysfunction seen without tissue Doppler evidence of raise left atrial pressure. Right Ventricle Right atrium and right ventricle are normal size and contractility. Aortic Valve Aortic valve is grossly normal, there is no aortic stenosis or aortic insufficiency. Mitral Valve Mitral valve grossly normal, there is trace mitral regurgitation. Tricuspid Valve Tricuspid valve grossly normal, there is trace tricuspid regurgitation, tricuspid regurgitation jet velocity is inadequate for calculation of the right ventricular systolic pressure. Pulmonic Valve Pulmonic valve is poorly visualized. Great Vessels Aortic root is normal size. Inferior vena cava is poorly visualized. Pericardium No significant pericardial effusion noted. Conclusion 1. Normal left ventricular size preserved left ventricular systolic function, estimated ejection fraction 55% with no regional wall motion abnormality, grade 1 diastolic dysfunction seen without tissue Doppler evidence of raise left atrial pressure. 2. Trace mitral and tricuspid regurgitation. 3. No significant pericardial effusion noted. 4. Inferior vena cava is poorly visualized. Electronically signed by : Rickey Crenshaw MD 08/23/2021 11:16:23
== END ==
LOC: RAD 07:40
PROVIDERS: PCP Emergency Medicine; Visit Provider Nurse Practitioner Family
DX: R06.00 Dyspnea, unspecified (principal); Z01.810 Encounter for preprocedural cardiovascular examination; R07.9 Chest pain, unspecified; I25.10 Atherosclerotic heart disease of native coronary artery without angina pectoris; I11.9 Hypertensive heart disease without heart failure; E78.5 Hyperlipidemia, unspecified; E11.9 Type 2 diabetes mellitus without complications; G47.33 Obstructive sleep apnea (adult) (pediatric); Z79.84 Long term (current) use of oral hypoglycemic drugs
CPT/HCPCS: 78452; 93017; 93306; A9502; J2785

== ENCOUNTER → 2021-09-17 14:09 | Outpatient (CLI) | payer OTHER, SELFPAY ==
[2021-09-17 14:24] LABS: Amphetamine/Metha Screen,Urine Negative ng/ml (<1000); Barbiturates Screen,Urine Negative ng/ml (<200)
[2021-09-17 14:26] LABS: Benzodiazepines Screen,Urine Negative ng/ml (<200)
[2021-09-17 14:27] LABS: Cannabinoid Screen,Urine Negative ng/ml (<50); Cocaine Screen,Urine Negative ng/ml (<300)
[2021-09-17 14:28] LABS: Methadone Screen,Urine Negative ng/ml (<300)
[2021-09-17 14:29] LABS: Opiate Screen,Urine Negative ng/ml (<300); Phencyclidine Screen,Urine Negative ng/ml (<25)
== END ==
PROVIDERS: Visit Provider Emergency Medicine
DX: M47.816 Spondylosis without myelopathy or radiculopathy, lumbar region (principal)
CPT/HCPCS: 80305

== ENCOUNTER → 2021-11-10 13:17 | Outpatient (CLI) | payer OTHER, SELFPAY ==
[2021-11-10 14:04] LABS: INR 1.35 (0.9-1.1); Prothrombin Time 14.9 seconds (10.1-12.5)
[2021-11-10 14:16] LABS: Basophils # 0.1 K/mm3 (0-0.2); Basophils % 0.8 % (0.1-2.0); Eosinophils # 0.1 K/mm3 (0.0-0.4); Eosinophils % 0.5 % (0.1-12.0); Hematocrit 50.1 % (42.0-52.0); Hemoglobin 16.2 g/dL (14.1-18.0); Lymphocytes # 1.5 K/mm3 (0.7-4.5); Lymphocytes % 14.1 % (10-50); Mean Corpuscular HGB Conc 32.4 g/dL (31.8-35.4); Mean Corpuscular Volume 98.9 fl (80-94); Mean Platelet Volume 7.9 fl (7.4-10.4); Monocytes # 0.7 K/mm3 (0.1-1.0); Monocytes % 6.9 % (1.7-9.3); Neutrophils % 77.7 % (37.0-80.0); Platelet Count 188 K/mm3 (142-424); Red Blood Count 5.06 M/mm3 (4.60-6.20); Red Cell Distribution Width 13.7 % (11.5-17.5); White Blood Count 10.4 K/mm3 (4.8-10.8)
[2021-11-10 14:26] LABS: Alanine Aminotransferase 43 U/L (12-78); Albumin Level 3.5 g/dl (3.5-5.0); Albumin/Globulin Ratio 0.9 (1.1-1.8); Alkaline Phosphatase 217 U/L (38-126); Anion Gap 14.5 mEq/L (5-15); Aspartate Amino Transferase 142 U/L (17-59); Bilirubin,Direct 4.8 mg/dl (0.0-0.4); Bilirubin,Total 7.8 mg/dl (0.2-1.3); Blood Urea Nitrogen 7 mg/dl (9-20); Calcium 9.3 mg/dl (8.4-10.2); Carbon Dioxide 30 mmol/L (22.0-30.0); Chloride 98 mmol/L (98-107); Estimated Glomerular Filt Rate 102 ml/min (>60); GFR (African American) 124 ML/MIN (>60); Globulin 4.1 g/dL (1.3-3.2); Glucose 116 mg/dl (74-100); Potassium 3.5 mmoL/L (3.5-5.1); Sodium 139 mmol/L (136-145); Total Protein,Serum 7.6 g/dl (6.3-8.2)
== END ==
PROVIDERS: PCP Emergency Medicine; Visit Provider Emergency Medicine
DX: R74.8 Abnormal levels of other serum enzymes (principal)
CPT/HCPCS: 36415; 80053; 82248; 85025; 85610

== ENCOUNTER → 2021-11-20 08:29 | Outpatient (CLI) | payer OTHER, SELFPAY ==
[2021-11-20 09:39] LABS: Alanine Aminotransferase 41 U/L (12-78); Aspartate Amino Transferase 123 U/L (17-59); Bilirubin, Conjugated 0.2 mg/dL (0.0-0.3); Bilirubin,Unconjugated 2.3 mg/dL (0.0-1.1)
[2021-11-20 09:40] LABS: Albumin Level 3.4 g/dl (3.5-5.0); Alkaline Phosphatase 160 U/L (38-126); Bilirubin,Indirect 2.3 mg/dL (0.0-0.9); Bilirubin,Total 5.3 mg/dl (0.2-1.3); Cholesterol 163 mg/dl (140-200); HDL Cholesterol 27 mg/dl (40-60); Total Protein,Serum 7.1 g/dl (6.3-8.2); Triglycerides 147 mg/dl (30-150); VLDL Cholesterol 29 mg/dL (0-40)
[2021-11-20 09:51] LABS: Direct LDL Cholesterol 108.32 mg/dL (100-129)
[2021-11-22 22:56] LABS: Hep A Ab, IgM Negative; Hepatitis B Core Antibody IgM Negative; Hepatitis B Surface Antigen Negative; Hepatitis C Antibody 0.1
== END ==
PROVIDERS: Nurse Practitioner Family; PCP Emergency Medicine; Visit Provider Emergency Medicine
DX: R06.00 Dyspnea, unspecified (principal); I11.9 Hypertensive heart disease without heart failure; E11.9 Type 2 diabetes mellitus without complications; R74.8 Abnormal levels of other serum enzymes; G47.33 Obstructive sleep apnea (adult) (pediatric)
CPT/HCPCS: 36415; 80061; 80074; 80076

== ENCOUNTER 2021-11-20 09:30 | Outpatient (RCR) | payer OTHER, SELFPAY ==
--- NOTE | 2021-11-06 11:16 | HMH.PTOPEV ---
PT Outpatient Evaluation Rehab PT Outpatient Evaluation Start: 11/06/21 09:40 Freq: Status: Active Protocol: Document 11/06/21 10:39 SHAWN (Rec: 11/06/21 10:53 PHODELORIS [id number]) Electronically Signed By Rm Nova, PT 11/06/21 10:39 Outpatient Therapy Subjective History Subjective History Pt is 51 yowm who presents with low back pain x ~ 1 yr, now S/P Lumbar surgery ~ 1 mo ago. He states, I'm not really sure what they did to my back. He reports pain is significantly reduced since surgery, without pain in the R LE that he was suffering from previously. He does report the R foot remains completely numb and he has mild pain remaining in the R side low back. He has PMH of CAD, PA, DM-II, HTN, HL. Chief Complaint Pain Symptom Type Ache Symptoms Relieved By Ice Symptoms Aggravated By Bending/Stooping,Physical Activity Prior Functional Limitations Sleeping,Standing,Walking, Bending/Stooping Current Functional Limitations Standing,Walking,Bending/ Stooping Symptom Description Constant but Variable Level of pain today (0-10) 3 Pain scale - at its worst (0-10) 10 Lumbopelvic Eval Gait Observation General Gait Pattern Observation Antalgic Gait,Decrease Stride Lngth (L) Palapation tenderness right Lumbar/Sacral Palpation Findings Tenderness Lumbar/Sacral Palpation Overall Comment incision Accessory Movement L-spine Vertebrae Accessory Movements Central P/A [place] that Elicit Symptoms L2 bilateral L3 bilateral L4 bilateral L5 bilateral S1 bilateral Range of Motion Lumbar Spine Active Flexion Range of 0-50 Motion (degrees) Lumbar Spine Active Extension Range of 0-20 Motion (degrees) Left Lumbar Spine Lateral Flexion Active 0-15 Range of Motion (degrees) Right Lumbar Spine Lateral Flexion 0-15 Active Range of Motion (degrees) Manual Muscle Test Right Knee Extension Strength Grade 5 Normal Knee Flexion Strength Grade 5 Normal Hip Flexion Strength Grade 4 Good Hip Abduction Strength Grade 4 Good Hip Adduction Strength Grade [address]
== END 2021-11-20 10:30 | disposition home or self-care (01) ==
LOC: PT 09:30
PROVIDERS: PCP Emergency Medicine; Visit Provider Emergency Medicine
DX: M54.50 Low back pain, unspecified (principal)
CPT/HCPCS: 97010; 97014; 97110; 97163; G0283

== ENCOUNTER → 2021-12-02 10:15 | Outpatient (CLI) | payer OTHER, SELFPAY ==
[2021-12-02 10:45] LABS: Basophils # 0.1 K/mm3 (0-0.2); Basophils % 1.2 % (0.1-2.0); Eosinophils % 0.7 % (0.1-12.0); Hematocrit 53.1 % (42.0-52.0); Hemoglobin 16.3 g/dL (14.1-18.0); Lymphocytes # 1.2 K/mm3 (0.7-4.5); Mean Corpuscular HGB Conc 30.6 g/dL (31.8-35.4); Mean Corpuscular Hemoglobin 31.5 pg (27.0-31.2); Mean Corpuscular Volume 102.8 fl (80-94); Mean Platelet Volume 8.6 fl (7.4-10.4); Monocytes # 0.3 K/mm3 (0.1-1.0); Monocytes % 4.7 % (1.7-9.3); Neutrophils # 4.8 K/mm3 (1.8-7.8); Neutrophils % 74.4 % (37.0-80.0); Platelet Count 201 K/mm3 (142-424); Red Blood Count 5.16 M/mm3 (4.60-6.20); Red Cell Distribution Width 13.8 % (11.5-17.5); White Blood Count 6.5 K/mm3 (4.8-10.8)
[2021-12-02 11:05] LABS: Alanine Aminotransferase 48 U/L (12-78); Albumin Level 3.3 g/dl (3.5-5.0); Alkaline Phosphatase 127 U/L (38-126); Aspartate Amino Transferase 109 U/L (17-59); Bilirubin,Direct 1.3 mg/dl (0.0-0.4); Bilirubin,Indirect 0.7 mg/dL (0.0-0.9); Bilirubin,Unconjugated 0.7 mg/dL (0.0-1.1); Blood Urea Nitrogen 5 mg/dl (9-20); Calcium 9.2 mg/dl (8.4-10.2); Carbon Dioxide 30 mmol/L (22.0-30.0); Chloride 100 mmol/L (98-107); Estimated Glomerular Filt Rate 102 ml/min (>60); GFR (African American) 124 ML/MIN (>60); Globulin 3.4 g/dL (1.3-3.2); Glucose 245 mg/dl (74-100); Sodium 136 mmol/L (136-145); Total Protein,Serum 6.7 g/dl (6.3-8.2)
[2021-12-02 11:24] LABS: INR 1.18 (0.9-1.1); Prothrombin Time 13.2 seconds (10.1-12.5)
== END ==
PROVIDERS: PCP Emergency Medicine; Visit Provider Emergency Medicine
DX: R53.83 Other fatigue (principal); E87.6 Hypokalemia; R71.8 Other abnormality of red blood cells
CPT/HCPCS: 36415; 80053; 80076; 85025; 85610

== ENCOUNTER → 2021-12-10 08:38 | Outpatient (CLI) | payer OTHER, SELFPAY ==
--- NOTE | 2021-12-10 08:54 | US_ITS ---
FINAL REPORT CLINICAL HISTORY: ascites; liver disease FINDINGS: Sonographic images of the abdomen were obtained. The liver has coarsened echotexture which may be due to fatty infiltration. The gallbladder is partially contracted with slightly dilated gallbladder wall with is most likely due to the postprandial state. Patient ate 4 hours prior to the exam. There is no evidence of biliary ductal dilatation. The common hepatic duct measures 3 mm, which is within normal limits. Limited images of the pancreas are unremarkable. The spleen is mildly enlarged measuring 14.4 cm in length. The right kidney measures 11.3 cm in length. The left kidney measures 10.3 cm in length. There is normal renal echogenicity. There is no evidence of hydronephrosis. The aorta has an unremarkable appearance. Limited images of the inferior vena cava are unremarkable. IMPRESSION: Coarsened echotexture of the liver which is probably due to fatty infiltration. Mild splenomegaly. Partially contracted gallbladder, most likely due to patient eating 4 hours prior to the exam. If a more sensitive evaluation of the gallbladder is desired, patient can return in a fasted state. Reviewed, Interpreted and Dictated by Elton Philippe MD Transcribed by Aparna Franco Authenticated and [facility]
[2021-12-10 09:45] LABS: Hemoglobin A1C 5.8 % (4.0-6.0)
[2021-12-10 11:04] LABS: Vitamin B12 851 pg/mL (239-931)
[2021-12-10 11:05] LABS: Folate 4.52 ng/mL
== END ==
PROVIDERS: PCP Emergency Medicine; Visit Provider Emergency Medicine
DX: R18.8 Other ascites (principal); E11.9 Type 2 diabetes mellitus without complications; E53.8 Deficiency of other specified B group vitamins; Z79.84 Long term (current) use of oral hypoglycemic drugs
CPT/HCPCS: 36415; 76700; 82607; 82746; 83036

== ENCOUNTER → 2022-05-09 14:46 | Outpatient (CLI) | payer OTHER, SELFPAY ==
[2022-05-09 16:03] LABS: Amphetamine/Metha Screen,Urine Negative ng/ml (<1000); Barbiturates Screen,Urine Negative ng/ml (<200)
[2022-05-09 16:04] LABS: Benzodiazepines Screen,Urine Negative ng/ml (<200); Cannabinoid Screen,Urine Negative ng/ml (<50)
[2022-05-09 16:05] LABS: Cocaine Screen,Urine Negative ng/ml (<300)
[2022-05-09 16:06] LABS: Methadone Screen,Urine Negative ng/ml (<300); Opiate Screen,Urine Negative ng/ml (<300)
[2022-05-09 16:07] LABS: Phencyclidine Screen,Urine Negative ng/ml (<25)
== END ==
LOC: LAB.DROPOF 14:51
PROVIDERS: PCP Emergency Medicine; Visit Provider Emergency Medicine
DX: M47.816 Spondylosis without myelopathy or radiculopathy, lumbar region (principal)
CPT/HCPCS: 80305

== ENCOUNTER → 2022-07-04 14:28 | Outpatient (CLI) | payer OTHER, SELFPAY ==
[2022-07-04 14:46] LABS: Amphetamine/Metha Screen,Urine Negative ng/ml (<1000); Barbiturates Screen,Urine Negative ng/ml (<200)
[2022-07-04 14:47] LABS: Benzodiazepines Screen,Urine Negative ng/ml (<200)
[2022-07-04 14:48] LABS: Cannabinoid Screen,Urine Negative ng/ml (<50); Cocaine Screen,Urine Negative ng/ml (<300)
[2022-07-04 14:49] LABS: Methadone Screen,Urine Negative ng/ml (<300)
[2022-07-04 14:50] LABS: Opiate Screen,Urine Negative ng/ml (<300)
[2022-07-04 14:51] LABS: Phencyclidine Screen,Urine Negative ng/ml (<25)
== END ==
LOC: LAB 14:29
PROVIDERS: PCP Emergency Medicine; Visit Provider Emergency Medicine
DX: Z79.899 Other long term (current) drug therapy (principal)
CPT/HCPCS: 80305

== ENCOUNTER → 2022-09-01 09:30 | Outpatient (CLI) | payer OTHER, SELFPAY ==
[2022-09-01 16:56] LABS: Amphetamine/Metha Screen,Urine Negative ng/ml (<1000); Barbiturates Screen,Urine Negative ng/ml (<200)
[2022-09-01 16:57] LABS: Benzodiazepines Screen,Urine Negative ng/ml (<200)
[2022-09-01 16:58] LABS: Cannabinoid Screen,Urine Negative ng/ml (<50); Cocaine Screen,Urine Negative ng/ml (<300)
[2022-09-01 16:59] LABS: Methadone Screen,Urine Negative ng/ml (<300); Opiate Screen,Urine Negative ng/ml (<300)
[2022-09-01 17:00] LABS: Phencyclidine Screen,Urine Negative ng/ml (<25)
== END ==
LOC: LAB.DROPOF 14:25
PROVIDERS: PCP Emergency Medicine; Visit Provider Emergency Medicine
DX: Z79.899 Other long term (current) drug therapy (principal)
CPT/HCPCS: 80305

== ENCOUNTER → 2022-10-28 16:06 | Outpatient (CLI) | payer OTHER, SELFPAY ==
[2022-10-28 17:53] LABS: Amphetamine/Metha Screen,Urine Negative ng/ml (<1000); Barbiturates Screen,Urine Negative ng/ml (<200)
[2022-10-28 17:54] LABS: Benzodiazepines Screen,Urine Negative ng/ml (<200)
[2022-10-28 17:55] LABS: Cannabinoid Screen,Urine Negative ng/ml (<50); Cocaine Screen,Urine Negative ng/ml (<300)
[2022-10-28 17:57] LABS: Methadone Screen,Urine Negative ng/ml (<300); Opiate Screen,Urine Negative ng/ml (<300)
[2022-10-28 17:58] LABS: Phencyclidine Screen,Urine Negative ng/ml (<25)
== END ==
LOC: LAB.DROPOF 16:07
PROVIDERS: PCP Emergency Medicine; Visit Provider Emergency Medicine
DX: Z79.899 Other long term (current) drug therapy (principal)
CPT/HCPCS: 80305

== ENCOUNTER → 2022-12-26 16:31 | Outpatient (CLI) | payer BC, SELFPAY ==
[2022-12-26 13:14] LABS: MANUAL DIFFERENTIAL MANUAL DIFFERENTIAL (MANUAL DIFF)
[2022-12-26 13:25] LABS: Basophils % 0.5 % (0.1-2.0); Eosinophils # 0.1 K/mm3 (0.0-0.4); Eosinophils % 2.4 % (0.1-12.0); Hematocrit 51.4 % (42.0-52.0); Hemoglobin 16.2 g/dL (14.1-18.0); Lymphocytes # 1.9 K/mm3 (0.7-4.5); Lymphocytes % 35.2 % (10-50); Mean Corpuscular HGB Conc 31.4 g/dL (31.8-35.4); Mean Corpuscular Hemoglobin 28.2 pg (27.0-31.2); Mean Corpuscular Volume 89.6 fl (80-94); Monocytes # 0.3 K/mm3 (0.1-1.0); Monocytes % 5.2 % (1.7-9.3); Neutrophils # 3.1 K/mm3 (1.8-7.8); Neutrophils % 56.6 % (37.0-80.0); Platelet Count 129 K/mm3 (142-424); Red Blood Count 5.74 M/mm3 (4.60-6.20); Red Cell Distribution Width 13.4 % (11.5-17.5); White Blood Count 5.5 K/mm3 (4.8-10.8)
[2022-12-26 13:37] LABS: Chloride 103 mmol/L (98-107); Potassium 4.1 mmoL/L (3.5-5.1); Sodium 141 mmol/L (136-145)
[2022-12-26 13:39] LABS: Alanine Aminotransferase 55 U/L (12-78); Aspartate Amino Transferase 49 U/L (17-59); Bilirubin,Unconjugated 0.3 mg/dL (0.0-1.1); Blood Urea Nitrogen 16 mg/dl (9-20); Estimated Glomerular Filt Rate 89 ml/min (>60); GFR (African American) 108 ML/MIN (>60)
[2022-12-26 13:40] LABS: Albumin Level 4.5 g/dl (3.5-5.0); Albumin/Globulin Ratio 1.5 (1.1-1.8); Alkaline Phosphatase 97 U/L (38-126); Anion Gap 16.1 mEq/L (5-15); Bilirubin,Direct 0.5 mg/dl (0.0-0.4); Bilirubin,Indirect 0.3 mg/dL (0.0-0.9); Bilirubin,Total 0.8 mg/dl (0.2-1.3); Calcium 10.3 mg/dl (8.4-10.2); Carbon Dioxide 26 mmol/L (22.0-30.0); Chol/HDL Ratio 4.5 (1-3.5); Cholesterol 242 mg/dl (140-200); Glucose 97 mg/dl (74-100); HDL Cholesterol 54 mg/dl (40-60); Total Protein,Serum 7.5 g/dl (6.3-8.2); Triglycerides 140 mg/dl (30-150); VLDL Cholesterol 28 mg/dL (0-40)
[2022-12-26 13:43] LABS: Lymphocytes % 35 % (10-50); Monocytes % 3 % (2-9); Neutrophils % 62 % (42-76); Platelet Estimate Slight Decrease; RBC Morphology Normal; Total Cells Counted 100
[2022-12-26 13:51] LABS: Direct LDL Cholesterol 124.17 mg/dL (100-129)
[2022-12-26 14:46] LABS: Amphetamine/Metha Screen,Urine Negative ng/ml (<1000)
[2022-12-26 14:48] LABS: Barbiturates Screen,Urine Negative ng/ml (<200); Cannabinoid Screen,Urine Negative ng/ml (<50)
[2022-12-26 14:49] LABS: Benzodiazepines Screen,Urine Negative ng/ml (<200)
[2022-12-26 14:50] LABS: Cocaine Screen,Urine Negative ng/ml (<300); Opiate Screen,Urine Negative ng/ml (<300)
[2022-12-26 14:51] LABS: Methadone Screen,Urine Negative ng/ml (<300)
[2022-12-26 14:52] LABS: Phencyclidine Screen,Urine Negative ng/ml (<25)
[2022-12-26 15:00] LABS: Prostate Specific Ag Screen 0.5 ng/ml (0.0-4.0)
[2022-12-26 15:41] LABS: Thyroid Stimulating Hormone 3.67 uIU/mL (0.465-4.68)
== END ==
PROVIDERS: PCP Emergency Medicine; Visit Provider Family Medicine
DX: I10 Essential (primary) hypertension (principal); E11.9 Type 2 diabetes mellitus without complications; R53.83 Other fatigue; E66.3 Overweight; Z68.26 Body mass index [BMI] 26.0-26.9, adult; Z79.899 Other long term (current) drug therapy
CPT/HCPCS: 80053; 80061; 80076; 80305; 82306; 84443; 85007; 85014; 85018; 85048; 85049; G0103

== ENCOUNTER → 2023-01-15 15:06 | Outpatient (CLI) | payer BC, SELFPAY ==
--- NOTE | 2023-01-15 15:12 | US_ITS ---
FINAL REPORT CLINICAL HISTORY: Pain behind right knee FINDINGS: ULTRASOUND SOFT TISSUES OF THE RIGHT KNEE Limited sonographic images of the soft tissues of the right posterior knee were obtained. There No popliteal cyst is identified. There is no mass or fluid collection. IMPRESSION: No abnormality identified at the area of interest. Reviewed, Interpreted and Dictated by Desirae Harvey MD Transcribed by Irma Solitario Authenticated and [facility]
== END ==
PROVIDERS: PCP Emergency Medicine; Visit Provider Family Medicine
DX: M25.561 Pain in right knee (principal)
CPT/HCPCS: 76882

== ENCOUNTER → 2023-03-09 16:05 | Outpatient (CLI) | payer BC, SELFPAY ==
[2023-03-09 16:30] LABS: Amphetamine/Metha Screen,Urine Negative ng/ml (<1000); Barbiturates Screen,Urine Negative ng/ml (<200)
[2023-03-09 16:31] LABS: Benzodiazepines Screen,Urine Negative ng/ml (<200)
[2023-03-09 16:32] LABS: Cannabinoid Screen,Urine Negative ng/ml (<50); Cocaine Screen,Urine Negative ng/ml (<300)
[2023-03-09 16:33] LABS: Methadone Screen,Urine Negative ng/ml (<300)
[2023-03-09 16:34] LABS: Opiate Screen,Urine Negative ng/ml (<300); Phencyclidine Screen,Urine Negative ng/ml (<25)
== END ==
PROVIDERS: PCP Emergency Medicine; Visit Provider Emergency Medicine
DX: Z79.899 Other long term (current) drug therapy (principal)
CPT/HCPCS: 80305

== ENCOUNTER 2023-05-13 21:24 | Outpatient (CLI) | payer BC, SELFPAY ==
[2023-05-14 01:03] LABS: Amphetamine/Metha Screen,Urine Negative ng/ml (<1000)
[2023-05-14 01:04] LABS: Barbiturates Screen,Urine Negative ng/ml (<200); Benzodiazepines Screen,Urine Negative ng/ml (<200)
[2023-05-14 01:05] LABS: Cannabinoid Screen,Urine Negative ng/ml (<50)
[2023-05-14 01:06] LABS: Cocaine Screen,Urine Negative ng/ml (<300); Methadone Screen,Urine Negative ng/ml (<300)
[2023-05-14 01:07] LABS: Opiate Screen,Urine Negative ng/ml (<300)
[2023-05-14 01:08] LABS: Phencyclidine Screen,Urine Negative ng/ml (<25)
[2023-05-20 10:13] LABS: Alprazolam Negative (Cutoff=100); Benzodiazepines Positive ng/mL (Cutoff=100); Clonazepam Positive (.); Clonazepam Confirm 459 ng/mL (Cutoff=100); Flurazepam Negative (Cutoff=100); Lorazepam Negative (Cutoff=100); Midazolam Negative (Cutoff=100); Opiates Negative (Cutoff=100); Oxycodone (GC/MS) >3000 ng/mL (Cutoff=100); Oxymorphone (GC/MS) 1767 ng/mL (Cutoff=100); Temazepam Negative (Cutoff=100); Triazolam Negative (Cutoff=100)
== END 2023-05-13 23:59 ==
LOC: LAB.DROPOF 21:24
PROVIDERS: PCP Nurse Practitioner Family; Visit Provider Nurse Practitioner Family
DX: Z79.899 Other long term (current) drug therapy (principal); M54.12 Radiculopathy, cervical region; M54.16 Radiculopathy, lumbar region
CPT/HCPCS: 80307; 80346; 80361; 80365; G0480

== ENCOUNTER 2024-01-29 09:00 | Outpatient (CLI) | payer BC, SELFPAY ==
[2024-01-29 18:25] LABS: Basophils # 0.1 K/mm3 (0-0.2); Basophils % 0.9 % (0.1-2.0); Eosinophils # 0.1 K/mm3 (0.0-0.4); Eosinophils % 1.6 % (0.1-12.0); Hematocrit 48.8 % (42.0-52.0); Hemoglobin 16.4 g/dL (14.1-18.0); Lymphocytes # 2.2 K/mm3 (0.7-4.5); Lymphocytes % 29.3 % (10-50); Mean Corpuscular HGB Conc 33.7 g/dL (31.8-35.4); Mean Corpuscular Hemoglobin 30.1 pg (27.0-31.2); Mean Corpuscular Volume 89.4 fl (80-94); Mean Platelet Volume 8.6 fl (7.4-10.4); Monocytes # 0.4 K/mm3 (0.1-1.0); Monocytes % 5.9 % (1.7-9.3); Neutrophils # 4.7 K/mm3 (1.8-7.8); Neutrophils % 62.4 % (37.0-80.0); Platelet Count 163 K/mm3 (142-424); Red Blood Count 5.46 M/mm3 (4.60-6.20); Red Cell Distribution Width 13.5 % (11.5-17.5); White Blood Count 7.6 K/mm3 (4.8-10.8)
[2024-01-29 18:29] LABS: Alanine Aminotransferase 53 U/L (12-78); Albumin Level 4.6 g/dl (3.5-5.0); Albumin/Globulin Ratio 1.6 (1.1-1.8); Alkaline Phosphatase 62 U/L (38-126); Anion Gap 5.4 mEq/L (5-15); Aspartate Amino Transferase 51 U/L (17-59); Bilirubin,Total 0.8 mg/dl (0.2-1.3); Blood Urea Nitrogen 12 mg/dl (9-20); Calcium 9.6 mg/dl (8.4-10.2); Carbon Dioxide 34 mmol/L (22.0-30.0); Chloride 99 mmol/L (98-107); Cholesterol 195 mg/dl (140-200); Estimated Glomerular Filt Rate 78 ml/min (>60); GFR (African American) 95 ML/MIN (>60); Globulin 2.8 g/dL (1.3-3.2); Glucose 129 mg/dl (74-100); HDL Cholesterol 39 mg/dl (40-60); Potassium 3.4 mmoL/L (3.5-5.1); Sodium 135 mmol/L (136-145); Total Protein,Serum 7.4 g/dl (6.3-8.2); Triglycerides 239 mg/dl (30-150); VLDL Cholesterol 48 mg/dL (0-40)
[2024-01-29 18:41] LABS: Direct LDL Cholesterol 110.23 mg/dL (100-129)
[2024-01-29 18:43] LABS: Hemoglobin A1C 6.4 % (4.0-6.0)
[2024-01-29 18:59] LABS: Prostate Specific Ag Screen 0.5 ng/ml (0.0-4.0)
[2024-01-29 20:06] LABS: Thyroid Stimulating Hormone 3.93 uIU/mL (0.465-4.68)
== END 2024-01-29 23:59 | disposition home or self-care (01) ==
LOC: LAB.DROPOF 01-30 10:10
PROVIDERS: PCP Family Medicine; Visit Provider Family Medicine
DX: Z00.00 Encounter for general adult medical examination without abnormal findings (principal); E11.69 Type 2 diabetes mellitus with other specified complication; R53.83 Other fatigue; F32.9 Major depressive disorder, single episode, unspecified; E78.2 Mixed hyperlipidemia; I11.9 Hypertensive heart disease without heart failure; Z79.899 Other long term (current) drug therapy
CPT/HCPCS: 80050; 80053; 80061; 82306; 83036; 84443; 85025; G0103

== ENCOUNTER 2024-05-02 19:14 | Outpatient (CLI) | payer BC, SELFPAY ==
[2024-05-02 21:49] LABS: Creatinine,Urine Random 18 mg/dL (Not Estab.); Microalbumin < 6.000 mg/L (0-16.7)
== END 2024-05-02 23:59 | disposition home or self-care (01) ==
LOC: LAB.DROPOF 19:16
PROVIDERS: PCP Family Medicine; Visit Provider Family Medicine
DX: E11.69 Type 2 diabetes mellitus with other specified complication (principal)
CPT/HCPCS: 82043; 82570

== ENCOUNTER 2024-11-10 09:36 | Outpatient (CLI) | payer BC, SELFPAY ==
--- NOTE | 2024-11-10 09:38 | XR_ITS ---
FINAL REPORT CLINICAL HISTORY: Cough x 1 week, soreness, shortness of breath SX: Heart cath COMPARISON: 05/22/2020 FINDINGS: CHEST 2 VIEWS No acute pulmonary density is evident. There is no evidence of effusion or other pleural disease. The mediastinum has a normal appearance. The cardiac silhouette is unremarkable. IMPRESSION: Unremarkable chest exam. Reviewed, Interpreted and Dictated by Hannah Hu MD Transcribed by Rika Worthy Authenticated and . [facility]
--- OUTSIDE RECORDS SUMMARY | 2024-11-10 09:43 | XMS_ITS | Referral Summary ---
Author Organization [employer] ([place], [place], [place], [place]) Address [address] [place] [address] Care Team Providers Care Winding Department Supervisor Name Role Phone Unavailable Primary Care Provider Unavailabl e Social History Tobacco Use Types Packs/Day Years Used Date Smoking Tobacco: Never Assessed Sex and Gender Information Value Date Recorded Sex Assigned at Male 10/15/2021 7:39 PM CDT Legal Sex Male 7:39 PM CDT Gender Identity Male 10/15/2021 7:39 PM CDT Sexual Orientation Not on file Plan of Treatment Not on file
--- OUTSIDE RECORDS SUMMARY | 2024-11-10 09:43 | XMS_ITS | Encounter Summary ---
Author Organization [employer] ([place], [place], [place], [place]) Address [address] [place] [address] Care Team Providers Care Legal Support Assistant Name Role Phone Unavailable Primary Care Provider Unavailabl e Encounter Details Date Type Department Care Team (Late st Contact Info) Description 08/26/2021 Transcribed Document [facility] [address] [place] [address] ProviderHannah MD [address], [place] [id number] Social History Tobacco Use Types Packs/Day Years Used Date Smoking Tobacco: Never Assessed Sex and Gender Information Value Date Recorded Sex Assigned at Male 10/15/2021 7:39 PM CDT Legal Sex Male 7:39 PM CDT Gender Identity Male 10/15/2021 7:39 PM CDT Sexual Orientation Not on file documented as of this encounter Miscellaneous Notes * Cerner Conversion Note - Historical ProviderMD - 08/26/2021 11:17 AM CDT [facility] Main OR PostOp Summary Primary Physician: SHARDA MATHIS MD-Enrique Finalized Date/Time: 08/26/21 17:56:45 Pt. Name: KARSTEN HENAO /Sex: 1970 Male Med Rec #: [id number] Physician: SHARDA MATHIS MD-TEOFILO Financial #: [id number] Pt. Type: O Room/Bed: /34 Admit/Disch: 08/26/21 07:09:00 - Institution: [facility] Main OR PostOp Case Times Entry 1 In PACU II 08/26/21 13:30:00 Ready for PACU II 08/26/21 14:15:00 Discharge Discharge from PACU 08/26/21 14:15:00 II Last Modified By: Miroslava Macedo Rn 08/26/21 17:56:43 Finalized By: Miroslava Macedo, Rn Document Signatures Signed By: Miroslava Macedo Rn 08/26/21 17:56 Electronically signed by [facility] Conversion Science Liaison Cerner at 08/10/2022 4:47 PM CDT documented in this encounter Plan of Treatment Not on file documented as of this encounter Visit Diagnoses Not on filedocumented in this encounter
--- OUTSIDE RECORDS SUMMARY | 2024-11-10 09:43 | XMS_ITS | Encounter Summary ---
Author Organization [employer] ([place], [place], [place], [place]) Address [address] [place] [address] Care Team Providers Care Credit Collections Analyst Name Role Phone Unavailable Primary Care Provider Unavailabl e Encounter Details Date Type Department Care Team (Late st Contact Info) Description 08/26/2021 Transcribed Document [facility] Family Medicine [facility] [place] [address] ProviderHannah MD [facility] [place] [address] Social History Tobacco Use Types Packs/Day Years Used Date Smoking Tobacco: Never Assessed Sex and Gender Information Value Date Recorded Sex Assigned at Male 10/15/2021 7:39 PM CDT Legal Sex Male 7:39 PM CDT Gender Identity Male 10/15/2021 7:39 PM CDT Sexual Orientation Not on file documented as of this encounter Miscellaneous Notes * Cerner Conversion Note - Historical ProviderMD - 08/26/2021 1:49 PM CDT [facility] [address] KARSTEN MENDEZ :1970 Visit Time:08/26/2021 What to do next Your Diagnosis Radiculopathy, lumbar region, Radiculopathy, lumbar region Instructions From Your Care Team Diet after Discharge: Resume usual diet as tolerated, Do not drink any alcoholic beverages, Drink at least 8-10 glasses of water per day if allowed Activity after Discharge: Rest and relax today, No strenuous activity for 8 weeks. No bending, lifting, twisting, pushing, pulling, or overhead work. walk 2-3 times/day . you may climb stairs. Lifting Restrictions: No heavy lifting over 10 pounds Driving after Discharge: Do not drive until 24 hours after no longer taking pain medications May Return to Work/School: When Ok'd by the Doctor Showering/Bathing: Do not get your incision wet for 1 week. You may shower if covered with plastic wrap. Do not submerge in pool, bathtub, hot tub or allow shower to directly saturate incision Notify Provider of: Excessive bleeding, pain, swelling, pus-like drainage, increasing loss of sensation (numbness/tingling) in legs, difficulty walking, unable to urinate or have bowel movement Wound/Incision Care after: Keep incision clean and dry. Leave steri-strips, sutures, and/or taye in place if present. NO lotions, powders, ointments to incision site. See separate sheet for additional discharge instructions Medical Equipment for Home Use: ice pack for 20 min every hour as needed for 2 days Pain medication: take with food and use stool softener 2-3 times/day while on pain medicine. Do not exceed 4,000mg of tylenol in a 24h period No NSAIDs such as ibuprofen, Motrin, aleve, meloxicam, etc Follow-Up Appointments Follow Up with SHARDA MATHIS When Within 2 weeks Comments staple removal September 10 at 11am Follow-up September 26 at 10am Where: [facility] [place] [address] [place] [address]- Business (1) Medications What How Much When Instructions Next Dose amLODIPine (amLODIPine 5 mg oral tablet) 1 Tablet(s) Oral Every Day aspirin (aspirin 81 mg oral delayed release tablet) 1 Tablet(s) Oral Every Day bisoprolol (bisoprolol 10 mg oral tablet) 1 Tablet(s) Oral Every Day furosemide (furosemide 20 mg oral tablet) 2 Tablet(s) Oral Every Day losartan (losartan 25 mg oral tablet) 1 Tablet(s) Oral Every Day metFORMIN (metFORMIN 500 mg oral tablet) 1 Tablet(s) Oral Two Times A Day omeprazole (omeprazole 40 mg oral delayed release capsule) 1 Capsule(s) Oral Every Day before a meal oxyCODONE 10 Milligram(s) Oral Four Times A Day potassium chloride (Potassium Chloride (Eqv-K-Tab) 20 mEq oral tablet, extended release) 1 Tablet(s) Oral Every Day Take your medications faithfully. Do NOT skip medication. Do NOT stop taking medications without the direction of a physician. Carry a list of your medications with you at all times, and take this medication list with you to your first follow up visit. Report any side effects. Avoid herbal remedies unless discussed with your physician. As part of your treatment plan, your physician may have prescribed a limited course of a controlled substance. This medication may be given to help people with moderate or severe pain or for other medical conditions, but there are risks involved with treatment. Common side effects may include nausea, constipation, drowsiness, sweating, itching, dry mouth, and rash. More serious side effects may include cognitive and motor impairment, like problems with thinking, concentrating, alertness, and movement (e.g. slowed reflexes), and driving and operating heavy machinery can be dangerous. It is important for you to talk to your physician if you have these side effects or questions. These controlled substances can produce physical dependence and be habit-forming if taken for an extended period of time, which means that the body has gotten used to them and may experience withdrawal symptoms if they are abruptly stopped. Withdrawal symptoms can include runny nose, sweating, goose bumps, diarrhea, abdominal cramping, rapid heartbeat, difficulty sleeping, and nervousness. Please dispose of unused and medications per pharmacy guidance. Education Materials Lumbar Spine Discharge Information What to expect after surgery: -Mild swelling around the incision site. This will go away with time -Stiffness and pain at the incision site. -Leg pain due to nerve root irritation during surgery- usually improves with time -Tiredness is normal after surgery- it may take a week or so to regain your strength -You should only be in bed to sleep. Dressing: -Do not apply any lotions or ointments to your incision -[place] will be removed in office -Steri-strips or white tape, surgical glue or mesh may fall off on their own, or can be taken off in 10-2 days -Use antibacterial soap before and after changing the dressing DO NOT: Submerge in a pool, bathtub, hot tub, or allow the shower to beat directly on your incision. . Comfort Measures: -Use ice as needed. Don't put the ice directly on your skin, keep a barrier between your incision and the ice. -Change positions often- walking and lying down are best postures -Take prescription medications as indicated Brace: -If your doctor prescribes a brace, you may remove it to wash up and to sleep. Do not wear your brace in bed. -Have it on when you're up and about! Activity: -Stairs are okay, do not climb ladders -Light activity, walking on level surfaces & sexual relations are permitted but may be limited by pain. -Remember ???BLT?? No Bending, Lifting, or Twisting rule -Drive when you are no longer taking pain medication -Return to work 2-8 weeks when allowed by the surgeon. DO NOT lift over 10 pounds, mow the lawn, sweep, vacuum, dust, wash windows, rake leaves, shovel, or hike. Other: -Smoking cigarettes or inhaling secondhand smoke can make your fusion unsuccessful -Do not take osteoporosis medications until 2 months after your surgery -If your surgery included a fusion, do NOT take any anti-inflammatory medications (NSAIDs, ie. Aleve, Advil, Motrin, etc.) for at least 8 weeks after surgery! -Do NOT overuse prescription medications. You must follow directions closely. As needed means you should only take them when you are feeling pain and taking them in the directed time frame (eg. Every 4 hours.) Refills will be given ONLY if you have used the medications appropriately as directed. Outpatient Surgery, Adult, Care After This sheet gives you information about how to care for yourself after your procedure. Your health care provider may also give you more specific instructions. If you have problems or questions, contact your health care provider. What can I expect after the procedure? After the procedure, it is common to have: ??? Tenderness and numbness at the surgical site. ??? Swelling, bruising, and numbness around the surgical site. ??? Nausea. Follow these instructions at home: For the time period you were told by your health care provider: ??? Rest. ??? Do not participate in activities where you could fall or become injured. ??? Do not drive or use machinery. ??? Do not drink alcohol. ??? Do not take sleeping pills or medicines that cause drowsiness. ??? Do not make important decisions or sign legal documents. ??? Do not take care of children on your own. Medicines ??? Take bbsf-rjl-clbblxf and prescription medicines only as told by your health care provider. ??? If you were prescribed an antibiotic medicine, take it as told by your health care provider. Do not stop taking the antibiotic even if you start to feel better. ??? Ask your health care provider if the medicine prescribed to you: ? Requires you to avoid driving or using machinery. ? Can cause constipation. You may need to take these actions to prevent or treat constipation: ? Drink enough fluid to keep your urine pale yellow. ? Take ckww-xid-qxpermf or prescription medicines. ? Eat foods that are high in fiber, such as beans, whole grains, and fresh fruits and vegetables. ? Limit foods that are high in fat and processed sugars, such as fried or sweet foods. Eating and drinking ??? Follow the diet recommended by your health care provider. ??? When you are hungry, begin eating light and bland foods, such as toast. Gradually return to your regular diet. ??? If you vomit: ? Drink clear fluids slowly and in small amounts as you are able. Clear fluids include water, ice chips, low-calorie sports drinks, and fruit juice that has water added (diluted fruit juice). ? Eat bland, rymq-nb-zmqpud foods in small amounts as you are able. These foods include bananas, applesauce, rice, lean meats, toast, and crackers. Incision care ??? Follow instructions from your health care provider about how to take care of an incision, if you have one. Make sure you: ? Wash your hands with soap and water for at least 20 seconds before and after you change your bandage (dressing). If soap and water are not available, use hand celebrity chef entrepreneur media personality. ? Change your dressing as told by your health care provider. ? Leave stitches (sutures), skin glue, or adhesive strips in place. These skin closures may need to stay in place for 2 weeks or longer. If adhesive strip edges start to loosen and curl up, you may trim the loose edges. Do not remove adhesive strips completely unless your health care provider tells you to do that. ??? Check your incision area every day for signs of infection. Check for: ? Redness, swelling, or pain. ? Fluid or blood. ? Warmth. ? Pus or a bad smell. Activity ??? Do not play contact sports until your health care provider says it is okay. ??? Follow instructions from your health care provider about lifting heavy objects. You may be told not to lift things that weigh more than a certain amount. ??? Return to your normal activities as told by your health care provider. Ask your health care provider what activities are safe for you. General instructions ??? If you have sleep apnea, surgery and certain medicines can increase your risk for breathing problems. Follow instructions from your health care provider about wearing your sleep device: ? Anytime you are sleeping, including during daytime naps. ? While taking prescription pain medicines, sleep medicines, or medicines that make you drowsy. ??? Have a responsible adult stay with you for the time you are told. It is important to have someone help care for you until you are awake and alert. ??? Do not use any products that contain nicotine or tobacco, such as cigarettes, e-cigarettes, and chewing tobacco. These can delay healing after surgery. If you need help quitting, ask your health care provider. ??? Ask your health care provider when you can take baths or showers, swim, or use a hot tub. You may only be allowed to take sponge baths. ??? Keep all follow-up visits as told by your health care provider. This is important. Contact a health care provider if: ??? You have any of these signs of infection: ? Redness, swelling, or pain around your incision or IV site. ? Fluid or blood coming from your incision. ? Warmth coming from your incision. ? Pus or a bad smell coming from your incision. ? A fever. ??? You feel light-headed or you faint. ??? You develop a rash. ??? You keep feeling nauseous or keep vomiting. ??? You have severe pain, even after taking the medicines your health care provider has prescribed or recommended. ??? You have constipation. Get help right away if: ??? You cannot urinate. ??? You have trouble breathing. ??? You have chest pain. ??? Your legs become painful or swollen. These symptoms may represent a serious problem that is an emergency. Do not wait to see if the symptoms will go away. Get medical help right away. Call your local emergency services (911 in the [place] Do not drive yourself to the hospital. Summary ??? Nausea is common after a procedure. ??? Have a responsible adult stay with you for the time you are told. It is important to have someone help care for you until you are awake and alert. ??? Follow the diet recommended by your health care provider. If you vomit, drink clear fluids slowly and eat bland, htej-nt-vrbiib foods in small amounts. ??? Ask your health care provider what activities are safe for you. This information is not intended to replace advice given to you by your health care provider. Make sure you discuss any questions you have with your health care provider. Document Revised: 08/03/2020 Document Reviewed: 01/26/2020 [employer] Patient Education ?? 2020 [employer]. Emergency Awareness and Preventative Care STROKE is an EMERGENCY Every Minute Counts Act FAST and Check for these signs: FACE Does the face look uneven? ARM Does one arm drift down? SPEECH Does their speech sound strange? TIME Call at any sign of stroke Stroke Risk Factors Atrial Fibrillation (irregular heartbeat) Diabetes Family history of stroke Heart Disease Heavy alcohol use High Blood Pressure High Cholesterol Physical inactivity and obesity Smoking Cigarette Smoking The facts are clear, cigarette smoking will shorten your life. Smoking can cause many illnesses along the way. As a healthcare provider, we recommend that you stop smoking. Assistance with quitting is available by contacting 3-496-AKIL-NOW. This is a free resource providing counseling, support, and referral. Or you may contact your personal physician. National Suicide Prevention Lifeline: The National Suicide Prevention Lifeline is a national network of local crisis centers that provides free and confidential emotional support to people in suicidal crisis or emotional distress 24 hours a day, 7 days a week. Don't Wait! Stop a Heart Attack Before it Starts What is a heart attack? A heart attack is damage or to a part of the heart from severely decreased or lack of blood flow to the heart. Over time, arteries can become narrow from the buildup of fat and cholesterol, which is called plaque. The plaque can rupture causing a blood clot to form. When the blood clot forms, the artery can become severely narrowed or completely blocked, causing a heart attack. Heart attack is the leading cause of in the [place]. 85% of muscle damage occurs within the first 2 hours. Delay in the recognition of heart attack symptoms increases the chances of . Know the early symptoms of a heart attack: Nausea Feeling of fullness in chest Jaw Pain Pain that travels down one or both arms Fatigue/being tired Anxiety Back Pain Chest pressure, squeezing, or discomfort Shortness of breath Sweating, or a cold sweat Feeling of impending doom There are unusual signs of a heart attack, too! Women, the elderly, and diabetics may present with atypical symptoms: Fainting/dizziness Weakness Confusion Risk Factors for a Heart Attack Some heart disease risk factors, such as age and family history, cannot be changed. Others, like smoking and lack of exercise, can be changed. Smoking High Cholesterol High Blood Pressure Family History Obesity Age Gender (Males are at higher risk) Lack of Exercise Diabetes Diet Stress Excessive Alcohol Intake If you or someone you know is experiencing the signs and symptoms of a heart attack, DON???T DELAY. Call immediately and seek help. If someone collapses, perform CPR! Do not attempt to drive if you are having symptoms of heart attack. Hands-Only CPR Why Hands-Only CPR? Hands-Only CPR has been shown to be as effective as conventional CPR for cardiac arrests that occur outside of a hospital. Survival depends on immediately receiving CPR from someone nearby. How do you perform Hands-Only CPR? There are two easy steps: Call if you see a teen or adult collapse Push hard and fast in the center of the chest at a beat of 100 beats per minute. Save a life! 4 WAYS TO GET AHEAD OF SEPSIS SEPSIS is a MEDICAL EMERGENCY. Time matters! Infections put you and your family at risk for a life-threatening condition called sepsis. Sepsis is the body's extreme response to an infection. It is life-threatening, and without timely treatment, sepsis can rapidly lead to tissue damage, organ failure, and . Sepsis happens when an infection you already have-in your skin, lungs, urinary tract or somewhere else-triggers a chain reaction throughout your body. 1 PREVENT INFECTIONS Take good care of chronic conditions. Talk to your doctor about getting the recommended vaccines. 2 PRACTICE GOOD HYGIENE Wash your hands frequently. Keep cuts or open sores clean and covered until they are healed. 3 KNOW THE SYMPTOMS Confusion or disorientation Shortness of breath High heart rate Fever, shivering, or feeling very cold Extreme pain or discomfort Clammy or sweaty skin 4 ACT FAST Get medical care IMMEDIATELY if you suspect sepsis or if you have an infection that is not getting better or is getting worse. To learn more about sepsis and how to prevent infections, visit www.cdc.gov/sepsis. Test Results Laboratory or Other Results This Visit (last charted value for your 08/26/2021 visit) Hematology 08/23/2021 1:15 PM WBC: 11.6 K/uL -- Normal range between ( 3.6 and 9.5 ) RBC: 4.70 Million/uL -- Normal range between ( 4.20 and 5.70 ) Hct: 45.7 % -- Normal range between ( 40.1 and 51.0 ) Hgb: 15.5 g/dL -- Normal range between ( 13.5 and 17.3 ) Platelet Count: 258 K/uL -- Normal range between ( 163 and 369 ) MCH: 33.0 pg -- Normal range between ( 25.6 and 32.2 ) MCHC: 33.9 Gram/dL -- Normal range between ( 32.2 and 36.5 ) MCV: 97.2 fL -- Normal range between ( 79.0 and 94.8 ) Slide Review: No Eos %: 0.3 % -- Normal range between ( 0.0 and 7.0 ) [place] #: 0.83 K/uL -- Normal range between ( 0.16 and 1.00 ) Eos #: 0.04 x10(3)/uL -- Normal range between ( 0.00 and 0.80 ) [place] %: 7.1 % -- Normal range between ( 3.0 and 9.0 ) Baso %: 0.7 % -- Normal range between ( 0.0 and 1.5 ) Baso #: 0.08 x10(3)/uL -- Normal range between ( 0.00 and 0.20 ) RDW: 12.3 % -- Normal range between ( 11.7 and 14.9 ) Neut %: 77.1 % -- Normal range between ( 34.0 and 71.0 ) Neut #: 8.94 K/uL -- Normal range between ( 1.56 and 6.13 ) Lymph %: 14.4 % -- Normal range between ( 19.3 and 53.1 ) Lymph #: 1.67 x10(3)/uL -- Normal range between ( 1.00 and 3.90 ) MPV: 10.2 fL -- Normal range between ( 9.4 and 12.4 ) IG#: 0.05 x10(3)/uL -- Normal range between ( 0.00 and 0.05 ) IG%: 0.40 % -- Normal range between ( 0.00 and 0.60 ) Urinalysis 08/23/2021 1:15 PM Urine Nitrite: Positive Urine Leukocyte Esterase: Negative Urine Appearance: Clear Urine Glucose Dipstick: Negative Urine Blood Dipstick: Negative Urine Type: U CleanCatch Urine Urobilinogen Dipstick: 1.0 EU/dL Urine Protein Dipstick: Trace Ur Bacteria: 4+ Ur Squamous Epithelial Cells: 0-2 /HPF Urine Color: [place] Ur WBC: 0-2 /HPF Urine Ketones Dipstick: Negative Ur Mucous: 2+ Urine pH Dipstick: *5.0 -- Normal range between ( 6.0 and 8.0 ) Ur Hyaline Casts: 20-50 /LPF Urine Bilirubin Dipstick: Small Urine Specific [place]: 1.024 -- Normal range between ( 1.005 and 1.030 ) Microbiology 08/23/2021 3:30 PM SARS-CoV-2 (COVID19 PCR): Negative General Chemistry 08/26/2021 1:37 PM Glucose POC2: 157 mg/dL -- Normal range between ( 70 and 110 ) Device Comment 2: Device Comment 2 Device Comment 1: Device Comment 1 08/23/2021 1:15 PM Creatinine Level: 0.90 mg/dL -- Normal range between ( 0.70 and 1.30 ) Sodium Level: 137 mmol/L -- Normal range between ( 136 and 146 ) Potassium Level: 3.6 mmol/L -- Normal range between ( 3.5 and 5.1 ) Chloride Level: 91 mmol/L -- Normal range between ( 102 and 112 ) Carbon Dioxide Level: 39 mmol/L -- Normal range between ( 21 and 32 ) Anion Gap: 11 -- Normal range between ( 9 and 20 ) Bun/Creatinine: 10.0 -- Normal range between ( 8.0 and 20.0 ) Calcium Level: 9.2 mg/dL -- Normal range between ( 8.4 and 10.1 ) eGFR : >60 mL/min/1.73m2 eGFR NonAfrican: >60 mL/min/1.73m2 Glucose Level: 137 mg/dL -- Normal range between ( 74 and 106 ) Blood Urea Nitrogen: 9 mg/dL -- Normal range between ( 7 and 22 ) Patient Name:KARSTEN MENDEZ I have received this information and was given the opportunity to ask questions. Patient/Home Service Consultant Name: Patient/Home Service Consultant Signature: Relationship to Patient: Clinician/Hospital Home Service Consultant Signature: Date: documented in this encounter Plan of Treatment Not on file documented as of this encounter Visit Diagnoses Not on filedocumented in this encounter
--- OUTSIDE RECORDS SUMMARY | 2024-11-10 09:43 | XMS_ITS | Encounter Summary ---
Author Organization [employer] ([place], [place], [place], [place]) Address [address] [place] [address] Care Team Providers Care Software Tools Developer Name Role Phone Unavailable Primary Care Provider Unavailabl e Encounter Details Date Type Department Care Team (Late st Contact Info) Description 08/26/2021 Transcribed Document [facility] [address] [facility] [address] [place] [address] Driss Aldridge Jr., MD [address] [place], [place] [id number] Social History Tobacco Use Types Packs/Day Years Used Date Smoking Tobacco: Never Assessed Sex and Gender Information Value Date Recorded Sex Assigned at Male 10/15/2021 7:39 PM CDT Legal Sex Male 7:39 PM CDT Gender Identity Male 10/15/2021 7:39 PM CDT Sexual Orientation Not on file documented as of this encounter Miscellaneous Notes * Cerner Conversion Note - Driss Aldridge Jr., MD - 08/26/2021 11:15 AM EDT Patient: KARSTEN MENDEZ Age: 51 years Sex: Male : 1970 Associated Diagnoses: None Author: COMERMAYRA APRN Chief Complaint pleasant 51 yo male here with his for R L3-[address] Aldridge. pt has had back and RLE pain for 2 years, getting worse, failed conservative measures. Review of Systems Constitutional: Negative. Eye: glasses. Ear/Nose/Mouth/Throat: Negative. Respiratory: Negative. Cardiovascular: Negative. Gastrointestinal: Negative. Genitourinary: Negative. Hematology/Lymphatics: Negative. Endocrine: Negative. Immunologic: Negative. Musculoskeletal: Back pain: Bilaterally, In the lower region, Radiating, RLE. Integumentary: healing laceration pad of L middle finger. Neurologic: Negative. Psychiatric: Negative. All other systems are negative Health Status Allergies: Allergic Reactions (Selected) Severity Not Documented Claritin- Lip swelling., Allergies (1) Active Reaction Claritin Lip Swelling Current medications: (Selected) Inpatient Medications Ordered Ancef: 2 Gram, 50 mL, 100 mL/Hr, IV Piggyback, PREOP Lactated Ringers Injection intravenous solution 1,000 mL: 50 mL/Hr, IntraVENous Documented Medications Documented Potassium Chloride (Eqv-K-Tab) 20 mEq oral tablet, extended release: 1 Tab, Oral, Daily, 0 Refill(s) amLODIPine 5 mg oral tablet: 1 Tab, Oral, Daily, 0 Refill(s) aspirin 81 mg oral delayed release tablet: 1 Tab, Oral, Daily, 30 Tab, 0 Refill(s) bisoprolol 10 mg oral tablet: 1 Tab, Oral, Daily, 0 Refill(s) furosemide 20 mg oral tablet: 2 Tab, Oral, Daily, 0 Refill(s) losartan 25 mg oral tablet: 1 Tab, Oral, Daily, 0 Refill(s) metFORMIN 500 mg oral tablet: 1 Tab, Oral, BID, 180 Tab, 0 Refill(s) omeprazole 40 mg oral delayed release capsule: 1 Cap, Oral, Daily, before a meal, 30 Cap, 0 Refill(s) oxyCODONE: 10 mg, Oral, QID, 0 Refill(s), Home Medications (9) Active amLODIPine 5 mg oral tablet 5 mg = 1 Tab, Oral, Daily aspirin 81 mg oral delayed release tablet 81 mg = 1 Tab, Oral, Daily bisoprolol 10 mg oral tablet 10 mg = 1 Tab, Oral, Daily furosemide 20 mg oral tablet 40 mg = 2 Tab, Oral, Daily losartan 25 mg oral tablet 25 mg = 1 Tab, Oral, Daily metFORMIN 500 mg oral tablet 500 mg = 1 Tab, Oral, BID omeprazole 40 mg oral delayed release capsule 40 mg = 1 Cap, Oral, Daily oxyCODONE 10 mg, Oral, QID Potassium Chloride (Eqv-K-Tab) 20 mEq oral tablet, extended release 20 mEq = 1 Tab, Oral, Daily , Medications (2) Active Scheduled: (1) ceFAZolin/D5w 2 Gram 50 mL, IV Piggyback, PREOP Continuous: (1) lactated ringers 1,000 mL 1,000 mL, IntraVENous, 50 mL/Hr PRN: (0) Problem list: All Problems Myocardial infarction / SNOMED CT 55889306 / Confirmed Hypertension / SNOMED CT 1785014912 / Confirmed History of obstructive sleep apnea / IMO 62022933 / Confirmed GERD (gastroesophageal reflux disease) / SNOMED CT 392731032 / Confirmed Diabetes / SNOMED CT 707649646 / Confirmed CAD (coronary artery disease) / SNOMED CT 00797459 / Confirmed Chronic pain / SNOMED CT 283166645 / Confirmed, Active Problems (7) CAD (coronary artery disease) Chronic pain Diabetes GERD (gastroesophageal reflux disease) History of obstructive sleep apnea Hypertension Myocardial infarction Histories Past Medical History: No active or resolved past medical history items have been selected or recorded. Family History: No family history items have been selected or recorded. Procedure history: Lithotripsy ([id number]). heart cath. mass removed from chest x3 benign. Social History Social & Psychosocial Habits Alcohol 08/23/2021 Alcohol Use History, Social Habits Yes Alcohol Use Frequency Daily Substance Abuse 08/23/2021 Recreational Drug Use History No Recreational Drug Use Last 12 Months No Tobacco 08/23/2021 Smoking Status Former smoker, quit more Smokeless Tobacco Status Smokeless tobacco user wi . Physical Examination VS/Measurements Vital Signs/Vital Measures 08/26/2021 10:20 EDT Systolic Blood Pressure 122 mmHg Diastolic Blood Pressure 73 mmHg Temperature Source Temporal artery scanning Temperature Mode Fahrenheit Temperature, Fahrenheit 99.4 Deg F Clinical Temperature, C 37.4 Deg C Heart Rate Monitored 88 bpm Respiratory Rate 18 Breaths/Min Oxygen Saturation 96 % Oxygen Therapy Mode Room air , Vitals Signs (last 24 hrs) Last Charted Minimum Maximum Temp 99.4 (AUGUST 26 10:20) 99.4 (AUGUST 26 10:20) 99.4 (AUGUST 26:20) Mon HR 88 (AUGUST 26 10:20) 88 (AUGUST 26 10:20) 88 (AUGUST 26 10:20) Resp Rate 18 (AUGUST 26 10:20) 18 (AUGUST 26 10:20) 18 (AUGUST 26 10:20) SBP 122 (AUGUST 26 10:20) 122 (AUGUST 26 10:20) 122 (AUGUST 26 10:20) DBP 73 (AUGUST 26 10:20) 73 (AUGUST 26 10:20) 73 (AUGUST 26 10:20) SpO2 96 (AUGUST 26 10:20) 96 (AUGUST 26 10:20) 96 (AUGUST 26 10:20) General: Alert and oriented, No acute distress. Eye: Extraocular movements are intact, glasses. HENT: Normocephalic, Normal hearing. Respiratory: Lungs are clear to auscultation, Respirations are non-labored. Cardiovascular: Normal rate, Regular rhythm, No murmur, No gallop, No edema. Musculoskeletal: painful ROM back, RLE weakness. Integumentary: Warm, Dry, healing laceration pad of L middle finger POA. Neurologic: Alert, Oriented. Psychiatric: Cooperative, Appropriate mood & affect. Review / Management Results review: Labs (Last four charted values) WBC H 11.6 (AUGUST 23) HB 15.5 (AUGUST 23) HCT 45.7 (AUGUST 23) Plt 258 (AUGUST 23) Na 137 (AUGUST 23) K 3.6 (AUGUST 23) Cl L 91 (AUGUST 23) CO2 H 39 (AUGUST 23) BUN 9 (AUGUST 23) Cr 0.90 (AUGUST 23) Glu R H 137 (AUGUST 23) Ca 9.2 (AUGUST 23) , Lab results: 08/26/2021 10:34 EDT Glucose POC2 172 mg/dL HI . Impression and Plan Diagnosis 1. back pain with RLE radiculopathy/weakness 2. ANNEMARIE 3. CAD, CT 4. DM 5. GERd 6. HTN. Condition: Stable. pt to proceed with surgery, DC home today documented in this encounter Plan of Treatment Not on file documented as of this encounter Visit Diagnoses Not on filedocumented in this encounter
--- OUTSIDE RECORDS SUMMARY | 2024-11-10 09:43 | XMS_ITS | Encounter Summary ---
Author Organization [employer] ([place], [place], [place], [place]) Address [address] [place] [address] Care Team Providers Care Semi Conductor Assembler Name Role Phone Unavailable Primary Care Provider Unavailabl e Encounter Details Date Type Department Care Team (Late st Contact Info) Description 08/26/2021 Transcribed Document [facility] [address] [address] Sharda Mathis Jr., MD [address] [place] [address] Social History Tobacco Use Types Packs/Day Years Used Date Smoking Tobacco: Never Assessed Sex and Gender Information Value Date Recorded Sex Assigned at Male 10/15/2021 7:39 PM CDT Legal Sex Male 7:39 PM CDT Gender Identity Male 10/15/2021 7:39 PM CDT Sexual Orientation Not on file documented as of this encounter Miscellaneous Notes * Cerner Conversion Note - Sharda Mathis Jr., MD - 08/26/2021 1:10 PM EDT Patient: KARSTEN MENDEZ Age: 51 Years Sex: Male : 1970 *Operation right L3-4 microlumbar discectomy Anesthesia Type General VITA CHAMBERLAIN MD-ANS (Anesthesiologist of Record) TORI VASQUEZ MD-ANS (Anesthesiologist) *Preoperative Diagnosis LUMBAR DISC PROLAPSE WITH RADICULOPATHY *Postoperative Diagnosis SEE MD POST OP NOTE *Surgeon(s) Primary Surgeon SHARDA MATHIS MD-SNU (Surgeon/Proceduralist, First) *Estimated Blood Loss <50ml *Findings expected *Specimen(s) disc Complications none Date of Service Date/Time of Service SN - Proc - Start Time: 08/26/21 11:17:00 (08/26/21 11:25:07) documented in this encounter Plan of Treatment Not on file documented as of this encounter Visit Diagnoses Not on filedocumented in this encounter
--- OUTSIDE RECORDS SUMMARY | 2024-11-10 09:43 | XMS_ITS | Data Portability ---
Author Organization [facility] Address [address] [place] [address] Care Team Providers Care Refrigerating Oiler Name Role Phone NICA HOUSE Referring Provider [phone] Assessment Encounter Date Assessment Date Assessment LastModified by Organization Details LastModified Time 09/10/2021 09/10/2021 Pt is S/P right L3-4 microdiscectomy 08/26. Here for staple removal. Incision is well healed. No signs of infection. Yuli were removed. Pt is doing well. Tolerated procedure well. [email or web address] Not available 09/10/2021 11:26:49 09/26/2021 09/26/2021 Doing well after undergoing a right L3-4 microlumbar discectomy. Radicular leg pain is resolved. He says numbness in the foot and some foot weakness. He's doing some exercises/therapy at home. He did therapy for the foot drop back pain prior to surgery as well. He is a diabetic so there might be a touch of neuropathy going on here 2. I'm and have him undergo some work hardening physical therapy starting on October 26. I think he should be other return to work on November 26. This would be 3 months postop. His can continue doing exercises at home. We will arrange for him to get an AFO brace. Follow-up when necessary. A call me if he has any big problems in the future. elias Not available 09/26/2021 09:59:44 Plan of Treatment Reminders Order Date Submit Date Provider Last Modified By Organization Details Last Modified Time Details Appointments None record ed. Lab None record ed. Referral None record ed. Procedures None record ed. Surgeries None record ed. Imaging None record ed. Medication Orders None record ed. Patient TargetsNo targets recorded. Patient InstructionsNo instructions recorded. Reason for Referral None Reported. Results Created Date Observation Date Name Description Value Unit Range Abnormal Flag Note LastModifiedBy Organization Detail LastModifiedTime 08/27/19 22 08/26/2021 fluor oscop y (PROC ) No observ ation record ed. [email or web address] Neurosurgery [facility] [address] [facility] [address] [facility] [address], [place], [address], 09/06/2021 16:24:55 Result Notes None recorded. Problems Name Problem SNOMED Code Status Onset Date Resolution Date Notes Provider Name and Address Organization Details Recorded Time Lumbar disc prolapse with radiculopathy 745282136 Active 2021 MARCO A PENA PA-C [facility] [place], [address], [facility] 11:41:53 Problem Notes None recorded. Procedures Surgical History Date Name Laterality Status Provider Name and Address Organization Details Recorded Time 08/27/19 22 LAMINOTOMY (HEMILAMINECTOMY), DECOMPRESSION OF NERVE ROOTS, PARTIAL FACECTOTOMY, FORAMINOTOMY AND/OR DISC REMOVAL, LUMBAR (SURG) completed Oscar Jurado [facility] 08/28/2021 07:58:47 08/27/19 22 LAMINOTOMY (HEMILAMINECTOMY), DECOMPRESSION OF NERVE ROOTS, PARTIAL FACECTOTOMY, FORAMINOTOMY AND/OR DISC REMOVAL, LUMBAR (SURG) completed Maricarmen Dasilva [facility] 09/13/2021 08:17:35 cardiac catheterization completed Laura Nathan [facility] 07/04/2021 11:06:42 lithotripsy completed [facility] 07/04/2021 11:07:07 Imaging Results None recorded. Procedure Notes None recorded. Medical Equipment None Reported. Allergies No known drug allergies Medications Name Sig Start Date Stop Date Status Note LastModified by Organization Details LastModified Time furosemide 40 mg tablet active Not Available Not Available No t Available metformin 500 mg tablet Take 1 tablet twice a day by oral route. active Not Available Not Available No t Available prednisone 20 mg tablet active Not Available Not Available No t Available amlodipine 5 mg tablet active Not Available Not Available No t Available omeprazole 40 mg capsule,delaye d release active Not Available Not Available No t Available aspirin 81 mg tablet,delayed release active Not Available Not Available Not Available bisoprolol fumarate 10 mg tablet active Not Available Not Available Not Available potassium chloride ER 20 mEq tablet,extende d release(part/c ryst) active Not Available Not Available Not Available losartan 25 mg tablet Take 1 tablet every day by oral route. active Not Available Not Available No t Available gabapentin 300 mg capsule active Not Available Not Available N ot Available polyethylene glycol 3350 17 gram/dose oral powder active Not Available Not Available Not Available Percocet 5 mg-325 mg tablet Take 1 tablet every 6 hours by oral route as needed. 2021 active Not Available Not Available Not Avai lable metformin ER 500 mg tablet,extende d release 24 hr active Not Available Not Available Not Available amoxicillin 875 mg-potassium clavulanate 125 mg tablet active Not Available Not Availabl e Not Available furosemide active Not Available Not Av ailable Not Available oxycodone 10 mg tablet Take 1 tablet 4 times a day by oral route. active Not Available Not Available No t Available amlodipine besylate (bulk) active Not Available Not Available Not Available aspirin 81 mg capsule Take 1 capsule every day by oral route. active Not Available Not Available No t Available Vitals Date Recorded Body height Body mass index (BMI) Body weight Heart rate Systolic And Diastolic Provider Name and Address Organization Details Last Updated DateTime 07/04/2021 172.72 cm 26.2 kg/m2 05714.89 g 78 /min 184/109 mm[Hg] Laura Nathan [facility] 07/04/2021 11:04:53 Date Recorded Body height Body mass index (BMI) Body weight Systolic And Diastolic Provider Name and Address Organization Details Last Updated DateTime 09/26/2021 172.72 cm 26.2 kg/m2 03041.89 g 142/82 mm[Hg] Jennifer Jose David [facility] 09/26/2021 09:44:14 Social History Question Answer Notes LastModified by Organizat ion Details LastModified Time Tobacco Smoking Status Current Every Day Smoker Laura miramontes [facility] 07/04/2021 11:06:22 What Was The Date Of Your Most Recent Tobacco Screening? 07/04/2021 Information not available 07/04/2021 Has Tobacco Cessation Counseling Been Provided? No Information not available 07/04/2021 Sex: Unknown Functional Status Question Answer Note LastModified by Organization D etails LastModified Time Do you or have you ever used any other forms of tobacco or nicotine? No Information not available 07/04/2021 What is your level of alcohol consumption? Moderate Information not available 07/04/2021 Mental Status None recorded. Family History Relationship Description Onset Age of this Age Resolved Age Notes LastModified by Organization Details LastModified Time Unspecified Relation Malignant neoplastic disease apurdie Not available 2021 11:05:40 Unspecified Relation Hypertensive disorder apurdie Not available 2021 11:05:47 Unspecified Relation Myocardial infarction apurdie Not available 07/04 11:05:52 Medical History Condition Response Heart Attack (UT) Y Diabetes Y Hypertension Y Past Encounters Encounter ID Performer Location Encounter Start Date Encounter Closed Date Diagnosis/Indication Diagnosis SNOMED-CT Code Diagnosis ICD10 Code Diagnosis Note [id number] MARCO A PENA PA-C [facility] [address] [place] [address] 07/04/2021 10:07:53 07/05/2021 09:07:12 Lumbar disc prolapse with radiculopathy 591711119 M51.16 51-year-ol d male with history of a myocardial infarction , anticoagul ated on a baby aspirin, type 2 diabetes, chronic pain followed by Dr. House who is referred to our service for evaluation of his low back and right leg pain. CD from [facility] dated January [address] mathis. There is a large right paracentra l disc herniation at L3-4. it appears to impinge the L4 nerve root. The Patient's symptomato logy and exam are consistent with an L4 radiculopa thy. He has failed conservati ve management . Symptoms remain severe. Dr. Mathis is recommendi ng a right L3-4 microdisce ctomy. We discussed the procedure in detail including risks benefits and expected postoperat noel course. risks do include spinal fluid leak, infection, reherniati on. He agrees to proceed. He will meet with our senior scheduler today. [id number] SHARDA MATHIS MD SURGERY SCHEDULE [address] [place] [address] 09/13/2021 09:27:41 09/13/2021 13:58:30 [id number] SHARDA MATHIS MD [facility] [address] [place] [address] 09/10/2021 10:55:35 09/10/2021 11:27:54 [id number] SHARDA MATHIS MD [facility] [address] [place] [address] 09/26/2021 09:36:01 10/01/2021 16:47:35 Lumbar disc prolapse with radiculopathy 713066058 M51.16 Health Concerns Section Related Observation LastModified by Organization Detai ls LastModified Time None Recorded Concern Status LastModified by Organization Details LastModified Time None Recorded Advance Directives Directive None Recorded Payers Insurance Date Sequence Insurance Name Policy Number Policy Leggett Covered Member ID Leggett Member ID Guarantor Name 10/01/2021 1 [facility] [id number] Kasey Henao [id number] Karsten Henao Notes Date Note Type Note Provider Name and Address Organization Details Recorded Time 07/04/2021 text/html ROS as noted in the HPI 51-year-old male with history of a myocardial infarction, anticoagulated on a baby aspirin, type 2 diabetes, chronic pain followed by Dr. House who is referred to our service for evaluation of his low back and right leg pain. patient states these had on and off of lower back pain and right leg pain for the last year. In January there was it crescendoed. There was no mechanism. Rates his pain at 10 out of 10. Describes it as a deep ache with tightness and spasms. He has numbness and tingling in the lower extremity and subjective weakness. He also endorses bladder incontinence and bowel incontinence but no saddle paresthesia. This is described as having difficulty to make it to the bathroom due to the severe leg pain and not alexa incontinence. Ice pack seemed to make it somewhat better. Walking sitting and lying down makes it better. He has had physical therapy as well as traction. He takes Percocet 10 4 times a day chronically. He tried neuromodulator medicines but was able to tolerate the side effects. He's had 2 epidural injections at L3-[address] house which provided a few days of relief. Denies any left leg symptoms. He also endorses right foot pain, but contributes this to his diabetes. Right foot pain has been present for a number of years.she brings with him a lumbar MRI from January 2021 performed at [facility].The patient is unclear on his daily blood sugars are what his last A1c was. He denies any significant daily chest pain. He has never taken nitroglycerin.the patient works in a factory. MARCO A PENA PA-C [address] [place] [address], [address], [facility] 07/04/2021 11:43:37 09/26/2021 text/html Status post right L3-4 microlumbar discectomy which I performed on August 26, 2021. The right lower extremity that radiated down below the knee laterally. His radicular leg pain has resolved. He has a little posterior iliac pain. His right foot still feels diffusely numb. He still has weakness with dorsiflexion. He's followed a couple times because the numbness. He works in a factory. He is on long-term disability. If he gets back to work within a year he can go back at the same today and receive same benefits. SHARDA MATHIS MD [address] [place] [address], [phone], [facility] 09/26/2021 10:00:01
--- OUTSIDE RECORDS SUMMARY | 2024-11-10 09:43 | XMS_ITS | Encounter Summary ---
Author Organization [employer] ([place], [place], [place], [place]) Address [address] [place] [address] Care Team Providers Care Rn Transfer Name Role Phone Unavailable Primary Care Provider Unavailabl e Encounter Details Date Type Department Care Team (Late st Contact Info) Description 08/26/2021 Transcribed Document [facility] [place] [address] ProviderHannah MD [facility] [place], [place] [id number] Social History Tobacco Use Types Packs/Day Years Used Date Smoking Tobacco: Never Assessed Sex and Gender Information Value Date Recorded Sex Assigned at Male 10/15/2021 7:39 PM CDT Legal Sex Male 7:39 PM CDT Gender Identity Male 10/15/2021 7:39 PM CDT Sexual Orientation Not on file documented as of this encounter Miscellaneous Notes * Cerner Conversion Note - Historical ProviderMD - 08/26/2021 7:50 AM CDT Patient Education Materials Follows: Lumbar Spine Discharge Information What to expect [...] any lotions or ointments to your incision -Yuli will be removed in office -Steri-strips or [...] have used the medications appropriately as directed. Procedures Outpatient Surgery, Adult, Care After This sheet [...] children on your own. Medicines ??? Take ivjs-eqf-hraqhvc and prescription medicines only as told by [...] keep your urine pale yellow. ? Take kzou-fzg-uatcxjr or prescription medicines. ? Eat foods that [...] added (diluted fruit juice). ? Eat bland, yinr-gh-onpwzf foods in small amounts as you are [...] and water are not available, use hand parking lot chauffeur. ? Change your dressing as told by [...] drink clear fluids slowly and eat bland, kqbx-ol-youjnu foods in small amounts. ??? Ask your health care provider what activities are safe for you. This information is not intended to replace advice given to you by your health care provider. Make sure you discuss any questions you have with your health care provider. Document Revised: 08/03/2020 Document Reviewed: 01/26/2020 [employer] Patient Education ? 2020 [employer]. Electronically signed by Ady Levi Conversion Electric Brain Wave Equipment Mechanic Cerner at 08/10/2022 4:42 PM CDT documented in this encounter Plan of Treatment Not on file documented as of this encounter Visit Diagnoses Not on filedocumented in this encounter
--- OUTSIDE RECORDS SUMMARY | 2024-11-10 09:43 | XMS_ITS | Clinical Summary ---
Author Organization [employer] ([place], [place], [place], [place]) Address [address] [place] [address] Care Team Providers Care Band Builder Name Role Phone Unavailable Primary Care Provider [...]
--- OUTSIDE RECORDS SUMMARY | 2024-11-10 09:43 | XMS_ITS | Encounter Summary ---
Author Organization [employer] ([place], [place], [place], [place]) Address [address] [place] [address] Care Team Providers Care Casualty Claim Adjuster Name Role Phone Unavailable Primary Care Provider Unavailabl e Encounter Details Date Type Department Care Team (Late st Contact Info) Description 08/26/2021 Transcribed Document [facility] [place] [address] [place] [address] ProviderHannah MD [address], [place] [id number] Social History Tobacco Use Types Packs/Day Years [...] Historical ProviderMD - 08/26/2021 11:17 AM CDT [facility] Main OR Preop Summary Primary Physician: SHARDA MATHIS MD-TEOFILO Finalized Date/Time: 08/26/21 15:09:58 Pt. Name: KARSTEN HENAO /Sex: 1970 Male Med Rec #: [id number] Physician: SHARDA MATHIS MD-TEOFILO Financial #: [id number] Pt. Type: O Room/Bed: /34 Admit/Disch: 08/26/21 07:09:00 - Institution: [facility] PreOp Case Times Entry 1 In Preop 08/26/21 08:38:00 Ready for Holding n/a Room Patient Ready for 08/26/21 10:45:00 Surgery Patient Out of Preop 08/26/21 10:51:00 Patient Out of 08/26/21 15:09:00 Holding Room Last Modified By: Vanessa Faith Rn 08/26/21 15:09:56 [facility] PreOp Case Times Audit 08/26/21 15:09:56 Preschool Teacher: [id number] Modifier: [id number] <+> 1 Patient Out of Preop <+> 1 Patient Out of Holding Room 08/26/21 10:47:26 Preschool Teacher: [id number] Modifier: [id number] <+> 1 Patient Ready for Surgery Finalized By: Vanessa Faith Rn Document Signatures Signed By: Vanessa Faith Rn 08/26/21 15:09 documented in this encounter Plan of Treatment Not on file documented as of this encounter Visit Diagnoses Not on filedocumented in this encounter
--- OUTSIDE RECORDS SUMMARY | 2024-11-10 09:43 | XMS_ITS | Encounter Summary ---
Author Organization [employer] ([place], [place], [place], [place]) Address [address] [place] [address] Care Team Providers Care Blood Bank Supervisor Name Role Phone Unavailable Primary Care Provider Unavailabl e Encounter Details Date Type Department Care Team (Late st Contact Info) Description 08/26/2021 Transcribed Document [facility] [place] Family Medicine [address] [place] [address] ProviderHannah MD [address] [place], [place] [address] Social History Tobacco Use Types Packs/Day Years [...] Historical ProviderMD - 08/26/2021 11:17 AM CDT [facility] Main OR IntraOp Summary Primary Physician: SHARDA MATHIS MD-SNU Finalized Date/Time: 08/27/21 14:39:15 Pt. Name: KARSTEN HENAO /Sex: 1970 Male Med Rec #: [id number] Physician: SHARDA MATHIS MD-TEOFILO Financial #: [id number] Pt. Type: O Room/Bed: /34 Admit/Disch: 08/26/21 07:09:00 - 08/26/21 14:15:00 Institution: [facility] IntraOp Case Attendance Entry 1 Entry 2 Entry 3 Case Attendee SHARDA MATHIS MD-BRYAN ROPER, RN KAYLAH SAMPSON ST Role Performed Surgeon/Proceduralist, Video Production Coordinator, First Scrub, First First Time In 08/26/21 10:52:00 08/26/21 10:52:00 08/26/21 10:52:00 Time Out 08/26/21 12:09:00 08/26/21 12:09:00 08/26/21 12:09:00 Procedure Lumbar Lumbar Lumbar Microdiscectomy(Right) Microdiscectomy(Right) Microdiscectomy(Right) Other Attendee Superficial Wound Closed By: Last Modified By: BRYAN PINZON, BRYAN TOVAR, RN BRYAN PINZON, RN 08/26/21 12:09:46 08/26/21 12:09:46 08/26/21 12:09:46 Entry 4 Entry 5 Entry 6 Case Attendee Henrique Kirk, ALLIE BLAS PA COMBEST, ASHLEY P, CONCRETE MIXING TRUCK DRIVER Role Performed Scrub, Second Physician medical support assistant CONCRETE MIXING TRUCK DRIVER/Nurse Poultry Processing Supervisor Time In 08/26/21 10:52:00 08/26/21 10:52:00 08/26/21 10:52:00 Time Out 08/26/21 12:09:00 08/26/21 12:09:00 08/26/21 12:09:00 Procedure Lumbar Lumbar Lumbar Microdiscectomy(Right) Microdiscectomy(Right) Microdiscectomy(Right) Other Attendee Superficial Wound Closed By: Last Modified By: BRYAN PINZON RN WASSON, SANDRA D, BRYAN TOVAR, RN 08/26/21 12:09:46 08/26/21 12:09:46 08/26/21 12:09:46 Entry 7 Entry 8 Entry 9 Case Attendee VITA CHAMBERLAIN MD-Evelin Truong Duncan, Richelle, EMILIO Diagnostic Vice President Of Advertising Role Performed Anesthesiologist of Upfitter Video Production Coordinator, First Record Time In 08/26/21 10:52:00 08/26/21 10:52:00 08/26/21 11:40:00 Time Out 08/26/21 12:09:00 08/26/21 12:09:00 08/26/21 12:10:00 Procedure Lumbar Lumbar Lumbar Microdiscectomy(Right) Microdiscectomy(Right) Microdiscectomy(Right) Other Attendee lunch Superficial Wound Closed By: Last Modified By: BRYAN PINZON RN BRYAN PINZON RN WASSON, SANDRA D, RN 08/26/21 12:09:46 08/26/21 12:09:46 08/26/21 11:43:49 Entry 10 Case Attendee TORI VASQUEZ MD-ANS Role Performed Anesthesiologist Time In 08/26/21 11:52:00 Time Out 08/26/21 12:09:00 Procedure Lumbar Microdiscectomy(Right) Other Attendee lunch Superficial Wound Closed By: Last Modified By: BRYAN PINZON RN 08/26/21 11:53:00 [facility] IntraOp Case Attendance Audit 08/26/21 12:09:46 Heel Room Supervisor: WASSONSY Modifier: WASSONSY 1 <+> Time Out 1 <*> Procedure Lumbar Microdiscectomy(Right) 2 <+> Time Out 2 <*> Procedure Lumbar Microdiscectomy(Right) 3 <+> Time Out 3 <*> Procedure Lumbar Microdiscectomy(Right) 4 <+> Time Out 4 <*> Procedure Lumbar Microdiscectomy(Right) 5 <+> Time Out 5 <*> Procedure Lumbar Microdiscectomy(Right) 6 <+> Time Out 6 <*> Procedure Lumbar Microdiscectomy(Right) 7 <+> Time Out 7 <*> Procedure Lumbar Microdiscectomy(Right) 8 <+> Time Out 8 <*> Procedure Lumbar Microdiscectomy(Right) 9 <*> Procedure Lumbar Microdiscectomy(Right) 10 <+> Time Out 10 <*> Procedure Lumbar Microdiscectomy(Right) 08/26/21 11:53:00 Heel Room Supervisor: WASSONSY Modifier: WASSONSY <+> 10 Case Attendee <+> 10 Role Performed <+> 10 Time In <+> 10 Procedure <+> 10 Other Attendee 08/26/21 11:43:49 Heel Room Supervisor: WASSONSY Modifier: WASSONSY 1 <*> Procedure Lumbar Microdiscectomy(Right) 2 <*> Procedure Lumbar Microdiscectomy(Right) 3 <*> Procedure Lumbar Microdiscectomy(Right) 4 <*> Procedure Lumbar Microdiscectomy(Right) 5 <*> Procedure Lumbar Microdiscectomy(Right) 6 <*> Procedure Lumbar Microdiscectomy(Right) 7 <*> Procedure Lumbar Microdiscectomy(Right) 8 <+> Time In 8 <*> Procedure Lumbar Microdiscectomy(Right) <+> 9 Case Attendee <+> 9 Role Performed <+> 9 Time In <+> 9 Time Out <+> 9 Procedure <+> 9 Other Attendee 08/26/21 11:17:51 Heel Room Supervisor: WASSONSY Modifier: WASSONSY 1 <+> Time In 1 <*> Procedure Lumbar Microdiscectomy(Right) 2 <+> Time In 2 <*> Procedure Lumbar Microdiscectomy(Right) 3 <+> Time In 3 <*> Procedure Lumbar Microdiscectomy(Right) 4 <+> Time In 4 <*> Procedure Lumbar Microdiscectomy(Right) 5 <+> Time In 5 <*> Procedure Lumbar Microdiscectomy(Right) 6 <+> Time In 6 <*> Procedure Lumbar Microdiscectomy(Right) 7 <+> Time In 7 <*> Procedure Lumbar Microdiscectomy(Right) <+> 8 Case Attendee <+> 8 Role Performed <+> 8 Procedure [facility] IntraOp Case Times Entry 1 Patient In Room Time 08/26/21 10:52:00 Out Room Time 08/26/21 12:09:00 Anesthesia Start Time 08/26/21 10:52:00 Stop Time 08/26/21 12:09:00 Surgery / Procedure Times Start Time 08/26/21 11:17:00 Stop Time 08/26/21 12:02:00 Last Modified By: BRYAN PINZON RN 08/26/21 12:02:27 [facility] IntraOp Case Times Audit 08/26/21 12:09:45 Heel Room Supervisor: WASSONSY Modifier: WASSONSY <+> 1 Out Room Time <+> 1 Stop Time 08/26/21 12:02:27 Heel Room Supervisor: WASSONSY Modifier: WASSONSY <+> 1 Stop Time 08/26/21 11:18:25 Heel Room Supervisor: WASSONSY Modifier: WASSONSY <+> 1 Start Time [facility] IntraOp Cautery Entry 1 Entry 2 ESU Identification Cautery Type Monopolar ESU BiPolar ESU Cautery Type Comments ID Number [id number] ID Type Hospital Number Hospital Number Cautery Settings Cut Setting 45 8 Coag Setting 45 45 Blend Setting Bipolar Setting Argon Setting Argon Thomason ESU Grounding Pad Ground Pad Type Adult Grounding Pad Type Comment Grounding Pad Site Right thigh Grounding Pad Site Comment Grounding Pad BRYAN PINZON RN Applied By Grounding Pad Site Warm, dry and intact Skin Condition Before Cautery Site Skin Condition Before Comment Grounding Pad Site Unchanged Skin Condition After Cautery Site Skin Condition After Comment Last Modified By: BRYAN PINZON RN WASSON, SANDRA D, RN 08/26/21 11:20:54 08/26/21 11:20:54 [facility] IntraOp Communication Entry 1 Communication To Family/Significant other Comment START Communication By SHARDA MATHIS MD-SNU Date and Time 08/26/21 11:19:00 Last Modified By: BRYAN PINZON RN 08/26/21 11:19:52 [facility] IntraOp Counts Verification Entry 1 Procedure Lumbar Microdiscectomy(Right) Count Info Count Type Sponge, Sharps, Miscellaneous Counts Verification Baseline/pre-procedure Sequence Count Results Not Applicable Counts Performed By Count Performed By KAYLAH SAMPSON ST (Scrub) Count Performed By BRYAN PINZON RN (RN) Last Modified By: BRYAN PINZON RN 08/26/21 11:20:05 [facility] IntraOp Counts Final Entry 1 Procedure Lumbar Microdiscectomy(Right) Final Count Info Count Type Sponge, Sharps, Miscellaneous Counts Verification Skin Closure/end of Sequence procedure Count Results Correct, surgeon notified Counts Performed By Count Performed By KAYLAH SAMPSON ST (Scrub) Count Performed By Tangela Gama RN (RN) Last Modified By: BRYAN PINZON RN 08/26/21 11:56:53 [facility] IntraOp Cultures and Spec Summary Entry 1 Cultrures and Specimens Specimen Ordered: Yes Test(s) Routine/Path-Lab Requested/Final Disposition Last Modified By: BRYAN PINZON RN 08/26/21 11:44:08 [facility] IntraOp Departure from OR Entry 1 Integumentary Assessment Integumentary WDL Assessment WDL Transfer/Handoff Transfer to PACU Phase I Handoff Method Phone call Post-op Transport Stretcher/Kade Via Patient Transport TORI VASQUEZ, Accompanied by ZEFERINO NG JONATHAN, PA Last Modified By: BRYAN PINZON RN 08/26/21 11:25:20 [facility] IntraOp Departure from OR Audit 08/26/21 12:02:45 Heel Room Supervisor: ADRIÁN Modifier: WASSONSY <+> 1 Patient Transport Accompanied by [facility] IntraOp Dressing and Packing Entry 1 Type Dressing Location OP SITE Wound Dressing Item Other Applied By ALLIE MCGARRY PA Other Comments NEOSPORIN OINTMENT, COVADERM Last Modified By: BRYAN PINZON RN 08/26/21 11:31:29 [facility] IntraOp Fire Risk Assessment Entry 1 Fire Info Surgical Site or 0- No Incision Above the Xyphoid Open O2 Source 0- No (Mask or Cannula) Available Ignition 1- Yes (ESU, Laser, Light Source) Fire Risk 1 Assessment Score Fire Score Fire Risk Yes Assessment Complete Fire Risk BRYAN PINZON RN Assessment Verified By Fire Risk 08/26/21 10:51:00 Assessment Verified Date/Time Fire Risk Standard Fire Yes Safety Precautions Followed Last Modified By: BRYAN PINZON RN 08/26/21 11:21:13 [facility] IntraOp General Case Chemist 1 Case Information OR OR [facility] Case Level 1 Room Verified Yes Wound Class 1 - Clean Specialty Neurosurgery Anesthesia Type General ASA Class 2 Diagnosis Preop Diagnosis LUMBAR DISC PROLAPSE WITH RADICULOPATHY Postop Same As Preop No Postop Diagnosis SEE MD POST OP NOTE Wound Class Definitions Last Modified By: BRYAN PINZON RN 08/26/21 11:31:04 [facility] IntraOp General Case Data Audit 08/26/21 11:31:04 Heel Room Supervisor: YARELISSANDEEPGRADY Modifier: ADRIÁN <+> 1 ASA Class [facility] IntraOp Intraoperative Assessment Entry 1 Handoff Method Bedside/Face to face, Online nursing summary Valid History / Yes Physical in Chart Preoperative Yes Checklist Reviewed/Evaluated Allergies Reviewed Yes Patient is Latex No Sensitive Isolation Not applicable Precautions Noted Level of WDL Consciousness (WDL = Alert, Oriented to Person, Place, and Time) Skin Assessment No Verified Present Upon IVs Arrival to OR Last Modified By: BRYAN PINZON RN 08/26/21 11:21:33 [facility] IntraOp Intraoperative Equipment Entry 1 Entry 2 Type Equipment Equipment Equipment Equipment Hector Suction System Smoke evacuator ID Number # 9 # 9 Setting 400 MM HG Intraop Monitoring Electrocardiogram Five lead placement (ECG) Electrode Placement Blood Pressure Non-Invasive BP Device Source Blood Pressure Arm, right upper Location Pulse Oximeter Hand, left Probe Site Antiembolic Devices Antiembolic Devices Sequential compression device, knee high Antiembolic Device Bilateral Location Antiembolic Device [id number] ID Number Antiembolic Device Setting Scopes Flexible Endoscopes Used Scope Serial Number/Identificatio n Number Photo/Video Documentation Photo No Video No Intraop Equipment Comment Last Modified By: BRYAN PINZON RN WASSON, SANDRA D, RN 08/26/21 11:24:07 08/26/21 11:24:07 [facility] IntraOp Medication Admin Entry 1 Entry 2 Entry 3 Medication/Irrigant Polysporin 15Gm thrombin 5000units SPNG SURGFOAM ointment - [id number] topical powder - [id number] Combo Med List Time Administered Route of TOPICAL TOPICAL TOPICAL Administration Dose Dose 1 5000 1 Unit of Measure pkt units pkt Volume Administered By ALLIE MCGARRY PA OWEN, ROBERT D, MD-SNU SHARDA MATHIS MD-SNU Procedure Irrigation Irrigant Volume In Irrigant Volume Out Last Modified By: BRYAN PINZON RN WASSON, SANDRA D, RN WASSON, SANDRA D, RN 08/26/21 11:24:59 08/26/21 11:24:59 08/26/21 11:24:59 Entry 4 Medication/Irrigant Marcaine 0.25% 30ml vial - [id number] Combo Med List Time Administered Route of LOCAL Administration Dose Dose 10 Unit of Measure ml Volume Administered By SHARDA MATHIS MD-SNU Procedure Irrigation Irrigant Volume In Irrigant Volume Out Last Modified By: BRYAN PINZON RN 08/26/21 14:13:39 [facility] IntraOp Medication Admin Audit 08/26/21 14:13:39 Heel Room Supervisor: WASSONSY Modifier: WASSONSY <+> 4 Medication/Irrigant <+> 4 Route of Administration <+> 4 Administered By <+> 4 Dose <+> 4 Unit of Measure [facility] IntraOp Patient Positioning Entry 1 Procedure Lumbar Microdiscectomy(Right) Body Position Prone Left Arm Position Secured on padded arm board Right Arm Position Secured on padded arm board Left Leg Position Elevated Right Leg Position Elevated Feet Uncrossed Yes Pressure Points Yes Checked Positioning Devices Trevon Table, Head Rest, Pad, Arm, Pad, Elbow, Pillows, Safety Strap, Thighs Device Position TREVON TABLE WITH CHEST AND HIP PADS Positioned By ALLIE MCGARRY PA, DELORIS MICHAELS CRNA, OWEN, ROBERT D, MD-TEOFILO, BRYAN PINZON, RN Position Verified Positioning Yes Verified by Anesthesia Positioning Yes Verified by Surgeon Last Modified By: BRYAN PINZON RN 08/26/21 11:23:15 [facility] IntraOp Sign In Entry 1 Patient, Site, Yes Procedure Identified Surgical Consent Yes Confirmed Relevant Surgical Yes Documents Available Surgical Site N/A Marked by person performing procedure Anesthesia Machine Yes Check Completed Medication Checks Yes Completed Allergies Yes Airway Difficult Yes Airway/Aspiration Risk Difficult Yes Airway/Aspiration Intervention Equipment Available Blood Loss Risk Yes Blood Loss Yes Intervention Equipment Prepared and Ready Blood Identifiers Not applicable Verified Per Policy Hypothermia Risk Yes Warming Measures Yes Taken Last Modified By: BRYAN PINZON RN 08/26/21 11:21:50 [facility] IntraOp Sign Out Entry 1 RN Confirmation Surgical Yes Procedure(s) Identified Instrument, Sponge Yes and Sharps Counts Correct/Documented Equipment Problems N/A Documented Specimen Labeled Yes Correctly Urinary Catheter N/A Documented in IView Wound Yes classification reviewed, verified and updated post case in both the General Case Data and Procedure segments Gonzalez Patient Yes Recovery Concerns Reviewed with Anesthesia Provider, Surgeon and RN Gonzalez Patient Yes Management Concerns Reviewed with Anesthesia Provider, Surgeon and RN Safety Checklist Yes Elements Complete? RN Sign Out BRYAN PINZON RN Signature RN Sign Out 08/26/21 12:06:00 Signature Date/Time Plan of Care Outcome - Fire Risk OUTCOME STATEMENT: Goal met Patient is free from injury related to surgical fire Plan of Care Outcome - Pt Positioning OUTCOME STATEMENT: Goal met Absence of signs and symptoms of positioning injury. Plan of Care Outcome - Skin Prep OUTCOME STATEMENT: Goal met Intraoperative care is consistent with measures to prevent infection Plan of Care Outcome - Xray/Images OUTCOME STATEMENT: Goal met Absence of observable signs or symptoms of radiation injury Plan of Care Outcome - Counts OUTCOME STATEMENT: Goal met Absence of signs and symptoms of injury related to extraneous objects Last Modified By: BRYAN PINZON RN 08/26/21 11:31:56 [facility] IntraOp Sign Out Audit 08/26/21 12:02:58 Heel Room Supervisor: ADRIÁN Modifier: WASSONSY <+> 1 RN Sign Out Signature Date/Time [facility] IntraOp Skin Prep Entry 1 Procedure Lumbar Microdiscectomy(Right) Prescribed Yes Pre-Surgical Prep Completed Prep Area BACK Intraop Prep Integumentary WDL Assessment WDL Prep Agents Chloraprep Prep by BRYAN PINZON, RN Hair Removal Methods No hair removal performed Last Modified By: BRYAN PINZON RN 08/26/21 11:22:10 [facility] IntraOp Surgical Procedures Entry 1 Procedure Lumbar Microdiscectomy Modifiers Right Additional (RT L3-4 Procedure MICRODISCECTOMY) Description Primary Procedure Yes Primary Surgeon SHARDA AMTHIS MD-SNU Start 08/26/21 11:17:00 Stop 08/26/21 12:02:00 Anesthesia Type General Specialty Neurosurgery Wound Class 1 - Clean Last Modified By: BRYAN PINZON RN 08/26/21 11:25:07 [facility] IntraOp Surgical Procedures Audit 08/26/21 12:02:28 Heel Room Supervisor: ADRIÁN Modifier: WASSANDEEPSY <+> 1 Stop [facility] IntraOp Temp Regulation Devices Entry 1 Temp Regulation Temperature Warm blankets Regulation Device Temperature Lower body Regulation Site Temperature BRYAN PINZON RN Regulation Device Applied by Temperature MIKA HUGGER AVAILABLE Regulation Comment TO ANESTHESIA Last Modified By: BRYAN PINZON RN 08/26/21 11:31:00 [facility] IntraOP Time Out Entry 1 Procedure to be Lumbar Performed Microdiscectomy(Right) Time Out Time Out Pause Time 08/26/21 11:16:00 All activity Yes suspended (unless life threatening emergency) Team Verbally Correct patient Confirms Information identity, Correct side and site are marked, Consent form is present and accurate, Agreement on the procedure to be done, Correct patient position, Relevant images/results properly labeled/appropriately displayed, Confirm antibiotics have been administered, Confirm the skin prep has dried, Performed in location of procedure after prepped/draped Antibiotic Yes Prophylaxis Administered Or In Progress Within the Last 60 Minutes Beta Mary Jane Yes Administered Venous Yes Thromboembolism Prophylaxis Required Anticipated Critical Events Surgeon None expected Anesthesia Provider Patient specific concerns Nursing Assures Sterility of instruments Essential Imaging Yes Labeled and Displayed Last Modified By: BRYAN PINZON RN 08/26/21 11:18:21 [facility] IntraOp X-Ray and Images Entry 1 X-Ray/Imaging Type Fluoroscopy Fluoroscopy Type C-Arm Site OP SITE Business Analytics Analyst Name Evelin Macedo, Diagnostic Vice President Of Advertising Last Modified By: BRYAN PINZON RN 08/26/21 11:28:26 Case Comments <None> Finalized By: CORY THOMASON Document Signatures Signed By: BRYAN PINZON RN 08/26/21 14:13 BRYAN PINZON RN 08/26/21 12:09 CORY THOMASON 08/27/21 14:39 Unfinalized History Date/Time Username Reason for Unfinalizing Freetext Reason for Unfinalizing 08/26/21 14:13 ADRIÁN Correct Documentation 08/27/21 14:38 LILLIAN Correct Billing documented in this encounter Plan of Treatment Not on file documented as of this encounter Visit Diagnoses Not on filedocumented in this encounter
--- OUTSIDE RECORDS SUMMARY | 2024-11-10 09:43 | XMS_ITS | Encounter Summary ---
Author Organization [employer] ([place], [place], [place], [place]) Address [address] [place] [address] Care Team Providers Care Filter Helper Name Role Phone Unavailable Primary Care Provider Unavailabl e Encounter Details Date Type Department Care Team (Late st Contact Info) Description 08/26/2021 Transcribed Document [facility] [place] Family Medicine [address] [place] [address] ProviderHannah MD [address], [place] [address] Social History Tobacco Use Types Packs/Day Years [...] Historical ProviderMD - 08/26/2021 11:17 AM CDT [facility] Main OR PACU Summary Primary Physician: SHARDA MATHIS MD-TEOFILO Finalized Date/Time: 09/02/21 14:45:16 Pt. Name: KARSTEN MENDEZ /Sex: 1970 Male Med Rec #: [id number] Physician: SHARDA MATHIS MD-SNU Financial #: [id number] Pt. Type: O Room/Bed: /34 Admit/Disch: 08/26/21 07:09:00 - 08/26/21 14:15:00 Institution: [facility] Main OR PACU I Case Times Entry 1 In PACU I 08/26/21 12:12:00 Ready for PACU 08/26/21 12:35:00 Discharge Discharge from PACU 08/26/21 13:35:00 I Last Modified By: Ana Valdes, Nurse Sat Tutor 09/02/21 14:45:11 [facility] Main OR PACU I Case Times Audit 09/02/21 14:45:11 Senior Stereo Compiler Team Lead: [id number] Modifier: [id number] 1 <*> Ready for PACU Discharge 08/26/21 12:25:00 09/02/21 14:45:04 Senior Stereo Compiler Team Lead: [id number] Modifier: [id number] 1 <*> Ready for PACU Discharge 08/26/21 12:35:00 1 <*> Discharge from PACU I 08/26/21 12:40:00 09/02/21 14:44:12 Senior Stereo Compiler Team Lead: [id number] Modifier: [id number] 1 <*> Ready for PACU Discharge 08/26/21 12:40:00 1 <*> Discharge from PACU I 08/26/21 12:35:00 [facility] Main OR PACU Acuity Entry 1 Start Time 08/26/21 12:35:00 Stop Time 08/26/21 13:25:00 Acuity Level [facility] PACU Acuity I Last Modified By: Ana Valdes Nurse 09/02/21 14:44:46 [facility] Main OR PACU Acuity Audit 09/02/21 14:44:46 Senior Stereo Compiler Team Lead: [id number] Modifier: [id number] 1 <*> Start Time 08/26/21 12:40:00 Finalized By: Ana Valdes, Nurse Seo Professional Signatures Signed By: Karen Khan RN-PATIENT CARE BEDSIDE NON-EXEMPT 08/26/21 13:39 Ana Valdes, Nurse Sat Tutor 09/02/21 14:45 Unfinalized History Date/Time Username Reason for Unfinalizing Freetext Reason for Unfinalizing 09/02/21 14:44 [id number] Correct Billing Electronically signed by Amita [facility] [employer] Supervisor Cerner at 08/10/2022 4:43 PM CDT documented in this encounter Plan of Treatment Not on file documented as of this encounter Visit Diagnoses Not on filedocumented in this encounter
--- OUTSIDE RECORDS SUMMARY | 2024-11-10 09:43 | XMS_ITS | Encounter Summary ---
Author Organization [employer] ([place], [place], [place], [place]) Address [address] [place] [address] Care Team Providers Care Cellophane Worker Name Role Phone Unavailable Primary Care Provider Unavailabl e Encounter Details Date Type Department Care Team (Late st Contact Info) Description 08/26/2021 Transcribed Document [facility] [address] [address] Driss Aldridge Jr., MD [facility] [place] [address] Social History Tobacco Use Types Packs/Day Years [...] - Driss Aldridge Jr., MD - 08/26/2021 1:16 PM EDT DATE OF PROCEDURE: 08/26/2021 SURGEON: Driss Aldridge Jr, MD PREOPERATIVE DIAGNOSIS: Right L3-L4 disk herniation with radiculopathy. POSTOPERATIVE DIAGNOSIS: Right L3-L4 disk herniation with radiculopathy. PROCEDURE PERFORMED: Right L3-L4 microlumbar diskectomy. MULTIPLE DRUM SANDER HELPER: Naseem Conroy PA-C. ANESTHESIA: General endotracheal anesthesia. ESTIMATED BLOOD LOSS: Less than 50 mL. COMPLICATIONS: None. SPECIMEN: Disk. CONDITION: Stable to PACU. INDICATIONS FOR PROCEDURE: Mr. Henao is 51 years old. He has refractory right lower extremity pain. The pain has been very severe since January. I saw him in the office. He had an inferior right L3-L4 disk herniation. It was quite large. I thought he was a candidate for surgery. Indications, risks, and benefits were explained. I met with him and his prior to the operation and answered all their questions. I went over everything again today, confirmed that he had right lower extremity pain, radiating below the knee mostly in the lateral lower extremity. DESCRIPTION OF PROCEDURE: After informed consent was obtained, the patient was brought to the operating room and general endotracheal anesthesia was induced routinely. He was carefully turned prone on the Airo CT scan table using the chest, hip, and thigh pads. Arms were abducted and flexed and all pressure points were padded and protected, and he was secured to the bed with straps per routine. Lateral fluoroscopy was brought in. We marked the skin in the midline overlying the L3-L4 disk space. An incision about an inch long was planned, and the back was prepped and draped in the usual fashion. Prophylactic antibiotics were given. Skin incision was opened with a scalpel. Bovie cautery was used to dissect down the fascia and a subperiosteal dissection was performed, exposing the inferior aspect of the L3 lamina. We took an image to confirm the correct level. We were at the L3-L4 interlaminar space and just below the L3-L4 disk space proper. Slade retractors were placed to hold the wound open transversely. I marked out the facet capsule and the pars interarticularis. I was careful not to violate across the pars. The inferior aspect of the L4-L3 lamina on the right was drilled away with a matchstick drill bit, and laminotomy was completed with the Kerrison punches. Ligamentum flavum was reflected inferiorly and laterally with a blunt nerve hook and I resected with 2 mm Kerrison punches. I brought in the microscope and then drilled out the lateral recess. There was a prominent, partially calcified disk protrusion at L3-L4, and inferior to this, there was a free fragment. I dorsally decompressed the L4 nerve root as it traversed the disk and came medial to the pedicle. I removed a little bit of the superior aspect of the L4 lamina. This allowed me to mobilize the thecal sac and nerve root and I incised the annulus of the disk and the pseudocapsule of the inferior herniation. We entered the subannular compartment of the disk space, removed some disk material, and then removed the inferior fragment in a 2 or 3 sizable pieces. These were relatively friable pieces and were soft for the most part, easily dissectible from the underlying dura. This nicely decompressed the L4 nerve root in the lateral aspect of the thecal sac. I entered the disk space proper to remove any loose disk material, and there was very little. I spent a great deal of time there, but there was very little disk that would deliver. A ball probe easily slid out the L4 foramen. I visualized a good portion of the L4 nerve root and it looked nice and free, and I could easily advance a ball probe out the L3 foramen as well. Meticulous epidural hemostasis was obtained. Bone edges were waxed throughout to prevent any bony bleeding. There was no CSF leakage. Meticulous soft tissue hemostasis was obtained with bipolar cautery. Once things were dry, the microscope was removed and the fascia was closed in a running Vicryl suture. Jose E's layer and the dermis were closed with interrupted Vicryl sutures. I injected Marcaine into the musculature on the right side in the subcutaneous tissue. [place] were applied at skin level. A dressing was applied, and the patient went to the recovery room in good condition. Naseem Conroy PA-C assisted through the entire operation with tasks such as suctioning, soft tissue retraction, nerve retraction, and wound closure. /[id number] Driss Aldridge Jr, MD RDO/AQ / RDO / MODL /[id number] documented in this encounter Plan of Treatment Not on file documented as of this encounter Visit Diagnoses Not on filedocumented in this encounter
--- OUTSIDE RECORDS SUMMARY | 2024-11-10 09:43 | XMS_ITS | Encounter Summary ---
Author Organization [employer] ([place], [place], [place], [place]) Address [address] [place] [address] Care Team Providers Care Physical Education Specialist Name Role Phone Unavailable Primary Care Provider Unavailabl e Encounter Details Date Type Department Care Team (Late st Contact Info) Description 08/23/2021 Transcribed Document [facility] [address] [place] [address] ProviderHannah MD [address], [place] [id number] Social History Tobacco Use Types Packs/Day Years Used Date Smoking Tobacco: Never Assessed Sex and Gender Information Value Date Recorded Sex Assigned at Male 10/15/2021 7:39 PM CDT Legal Sex Male 7:39 PM CDT Gender Identity Male 10/15/2021 7:39 PM CDT Sexual Orientation Not on file documented as of this encounter Miscellaneous Notes * [employer]ner Conversion Note - Historical ProviderMD - 08/23/2021 1:19 PM CDT PAT Adult Entered On: 08/23/2021 13:32 EDT Performed On: 08/23/2021 13:19 EDT by LAURI DUARTE RN Vital Measurements Temperature Source : Temporal artery scanning Temperature, Fahrenheit : 98.6 Deg F Clinical Temperature, C : 37 Deg C Peripheral Pulse Rate : 83 bpm Respiratory Rate : 18 Breaths/Min Blood Pressure Location : Arm, right upper Systolic Blood Pressure : 121 mmHg Diastolic Blood Pressure : 85 mmHg Oxygen Saturation : 96 % Oxygen Therapy Mode : Room air LAURI DUARTE RN - 08/23/2021 13:19 EDT Pain Assessment Pain Assessment : Initial assessment Pain Scale Goal : 4 Pain Scale Used : 0-10 Scale LAURI DUARTE RN - 08/23/2021 13:19 EDT Height and Weight, Clinical Dosing Height Source : Measured Height Entry Format : Maries Height, Feet : 0 ft(Converted to: 0 cm, 0 Inch) Height, Inches : 68 Inch(Converted to: 5 ft 8 Inch, 172.72 cm) Clinical Height : 172.72 cm Weight Source : Standing scale Weight Entry Format : Maries Clinical Dosing Weight : 78.64 kg Weight, Pounds : 173 lb Body Surface Area (BSA) : 1.92 m2 Body Mass Index : 26.4 kg/m2 (HI) [place] Body Weight : 67 kg LAURI DUARTE RN - 08/23/2021 13:19 EDT Health Histories Smoking Status : Former smoker, quit more than 30 days ago Smokeless Tobacco Status : Smokeless tobacco user within last 30 days Desires Tobacco Cessation Medication : No Reason for No Tobacco Cessation Medication : Refuses FDA approved medications LAURI DUARTE RN - 08/23/2021 13:19 EDT Social History (As Of: 08/23/2021 13:32:38 EDT) Tobacco: Former smoker, quit more than 30 days ago Smoking Status. Smokeless tobacco user within last 30 days Smokeless Tobacco Status. (Last Updated: 08/23/2021 13:22:12 EDT by LAURI DUARTE RN) Alcohol: Alcohol Use History Yes. Alcohol Use Frequency Daily. (Last Updated: 08/23/2021 13:22:12 EDT by LAURI DUARTE RN) Substance Abuse: Drug Use Hx: No. Use in Last 12 Months: No. (Last Updated: 08/23/2021 13:22:12 EDT by LAURI DUARTE RN) Infectious Disease History Does patient have symptoms of COVID-19? : No Tested for COVID19 in the past 14 days : No, Patient stated Does the Patient state known exposure to a COVID-19 positive case in the last 14 days? : No Patient Vaccinated for COVID-19 : Fully vaccinated LAURI DUARTE RN - 08/23/2021 13:19 EDT Infectious Disease Risk Screening Grid Cough < 2 wks of unknown origin : NO Cough > 2 weeks : NO Blood in Sputum : NO Fever or self-reported Fever : NO Rash of unknown origin : NO Headache : NO Stiff neck : NO Night Sweats : NO Unexplained Weight Loss : NO Diarrhea (3 episode per day) : NO LAURI DUARTE RN - 08/23/2021 13:19 EDT Physical contact outside [place] in the last 30 days : No Hospitalized in Foreign Country : No Infectious Disease History : Chicken pox/Shingles, Influenza INF Disease TB Screening Calc : 0 INF Disease Recent Travel Calc : 0 LAURI DUARTE RN - 08/23/2021 13:19 EDT COVID19 PreProcedure Screening Is this an Emergent or Add on Procedure? : No Date PreProcedure COVID-19 test known? : Yes Date of PreProcedure COVID-19 : 08/23/2021 EDT Has patient been isolated since the test : Yes Exposed to COVID19 symptoms since test? : No Vanessa Faith Rn - 08/26/2021 10:26 EDT Anesthesia/Transfusion History Family History of Anesthesia Reaction : No prior transfusion(s) Blood Transfusion Acceptable to Patient : Yes Transfusion History : Prior anesthesia without reaction Family History of Anesthesia Reaction : None LAURI DUARTE RN - 08/23/2021 13:19 EDT Functional Assessment Functional ADL Evaluation Index EBN Bathing : Independent (2) Dressing : Independent (2) Toileting : Independent (2) Transferring Bed or Chair : Independent (2) Continence : Independent (2) Feeding : Independent (2) LAURI DUARTE RN - 08/23/2021 13:19 EDT ADL Index Score : 12 LAURI DUARTE RN - 08/23/2021 13:19 EDT Advance Directive Patient has Advance Directive *Q : No, patient refuses Advance Directive information LAURI DUARTE RN - 08/23/2021 13:19 EDT Spiritual/Cultural Needs Any Spiritual/Cultural Needs or Requests : No LAURI DUARTE RN - 08/23/2021 13:19 EDT [place] Suicide Severity Rating Scale (C-SSRS) CSSRS Past Month Wish to be : No CSSRS Past Month Suicidal Thoughts : No CSSRS Lifetime Suicide Behavior : No Suicide Severity Rating Score : 0 Suicide Severity Rating : No Additional Care Required at this time LAURI DUARTE RN - 08/23/2021 13:19 EDT Psychosocial History Currently in Unsafe Situation : No LAURI DUARTE RN - 08/23/2021 13:19 EDT Teaching/Learning Assessment Barriers To Learning : None evident Individuals Taught : Patient Readiness to Learn : Cooperative Readiness to Learn : Explanation, Printed materials LAURI DUARTE RN - 08/23/2021 13:19 EDT Education Topics, Periop Preadmission Perioperative Education Grid Arrival Time/Place : Verbalizes understanding CHG Preoperative Bathing/Cloths : Verbalizes understanding Infection Control : Verbalizes understanding IV's : Verbalizes understanding NPO Status/Directions : Verbalizes understanding Pain Management : Verbalizes understanding Postoperative Care Preparations : Verbalizes understanding Preprocedure Preparations : Verbalizes understanding Preprocedure Tests/Labs : Verbalizes understanding Remove Body Piercings : Verbalizes understanding Responsible Adult : Verbalizes understanding Take/Hold Medications Pre-Procedure : Verbalizes understanding Other : Verbalizes understanding (Comment: bactroban [LAURI DUARTE RN - 08/23/2021 13:19 EDT] ) Responsible Adult Contact Information : Kasey Henao, spouse, LAURI DUARTE RN - 08/23/2021 13:19 EDT General Info Arrived From : Home Mode of Arrival on Unit : Ambulatory Patient Arrival Date/Time : 08/26/2021 9:00 EDT Legal Guardian : Spouse Want Family/Rep/Phys Notified of Admit : No Emergency Contact #1 : Kasey Henao Emergency Contact #1 Emergency Contact #1 Relationship : spouse Emergency Contact #2 : n/a Emergency Contact #2 Phone Number : n/a Emergency Contact #2 Relationship : n/a Identified Medical Decision Maker : Kasey Henao Identified Medical Decision Maker Identified Medical Decision Maker Class : spouse Information Obtained From : Patient Primary Language : Yakut Preferred Communication Mode : Verbal Communication Barrier : None Fundraising Specialist Needed : No Objects to Sharing Info w Family : No LAURI DUARTE RN - 08/23/2021 13:19 EDT Guicho Scale Guicho Sensory Perception : No impairment Guicho Moisture : Rarely moist Guicho Activity : Walks frequently Guicho Mobility : Slightly limited Guicho Nutrition : Excellent [place]icho Friction and Shear : No apparent problem Guicho Score : 22 LAURI DUARTE RN - 08/23/2021 13:19 EDT Sleep Apnea Risk Assmt BiPAP/CPAP Ordered for Home Use : Yes Hx of Obstructive Sleep Apnea Diagnosis : Yes BiPAP/CPAP Used at Home : No Reason BiPAP/CPAP Not Used at Home : recalled Age over 50 Years Old : Yes Gender Male : Yes LAURI DUARTE RN - 08/23/2021 13:19 EDT Pain Scale Intensity : 3 LAURI DUARTE RN - 08/23/2021 13:19 EDT Image 4 - Images currently included in the form version of this document have not been included in the text rendition version of the form. Electronically signed by Ady Levi Conversion Delivery And Installation Subcontractor Cerner at 08/10/2022 4:48 PM CDT documented in this encounter Plan of Treatment Not on file documented as of this encounter Visit Diagnoses Not on filedocumented in this encounter
== END 2024-11-10 23:59 | disposition home or self-care (01) ==
LOC: RAD 09:37
PROVIDERS: PCP Family Medicine; Visit Provider Family Medicine
DX: R05.9 Cough, unspecified (principal)
CPT/HCPCS: 71046

== ENCOUNTER 2025-03-21 09:53 | Outpatient (CLI) | payer BC, SELFPAY ==
[2025-03-21 19:10] LABS: Hematocrit 49.0 % (42.0-52.0); Hemoglobin 16.7 g/dL (14.1-18.0); Immature Granulocytes % 0.1 %; Mean Corpuscular HGB Conc 34.1 g/dL (31.8-35.4); Mean Corpuscular Hemoglobin 30.4 pg (27.0-31.2); Mean Corpuscular Volume 89.3 fl (80-94); Nucleated Red Blood Cells % 0 %; Platelet Count 198 K/mm3 (142-424); Red Blood Count 5.49 M/mm3 (4.60-6.20); Red Cell Distribution Width-SD 39.0 fL; White Blood Count 7.8 K/mm3 (4.8-10.8)
[2025-03-21 19:29] LABS: Albumin Level 4.8 g/dl (3.5-5.0); Chloride 92 mmol/L (98-107)
[2025-03-21 19:30] LABS: Potassium 3.5 mmoL/L (3.5-5.1); Sodium 140 mmol/L (136-145)
[2025-03-21 19:32] LABS: Alanine Aminotransferase 102 U/L (12-78); Anion Gap 18.5 mEq/L (5-15); Aspartate Amino Transferase 80 U/L (17-59); Bilirubin,Total 0.9 mg/dl (0.2-1.3); Blood Urea Nitrogen 10 mg/dl (9-20); Carbon Dioxide 33 mmol/L (22.0-30.0); Creatinine,Serum 0.80 mg/dl (0.66-1.25); Estimated Glomerular Filt Rate 101 ml/min (>60); GFR (African American) 122 ML/MIN (>60)
[2025-03-21 19:33] LABS: Albumin/Globulin Ratio 1.5 (1.1-1.8); Alkaline Phosphatase 86 U/L (38-126); Calcium 9.5 mg/dl (8.4-10.2); Cholesterol 209 mg/dl (140-200); Globulin 3.2 g/dL (1.3-3.2); Glucose 139 mg/dl (74-100); HDL Cholesterol 34 mg/dl (40-60); Total Protein,Serum 8.0 g/dl (6.3-8.2); Triglycerides 369 mg/dl (30-150)
[2025-03-21 19:52] LABS: Free T4 (Free Thyroxine) 1.46 ng/dl (0.78-2.19)
[2025-03-21 20:00] LABS: Hemoglobin A1C 6.6 % (4.0-6.0)
[2025-03-21 20:06] LABS: Thyroid Stimulating Hormone 1.41 uIU/mL (0.465-4.68)
--- OUTSIDE RECORDS SUMMARY | 2025-03-22 09:40 | XMS_ITS | Referral Summary ---
Author Organization [employer] ([place], [place], [place], [place], [place]) Address [address] [place] [address] Care Team Providers Care Drill Rig Operator Helper Name Role Phone Unavailable Primary Care [...]
--- OUTSIDE RECORDS SUMMARY | 2025-03-22 09:40 | XMS_ITS | Clinical Summary ---
Author Organization [employer] ([place], [place], [place], [place], [place]) Address [address] [place] [address] Care Team Providers Care Director Clinical Applications Name Role Phone Unavailable Primary Care Provider [...]
== END 2025-03-21 23:59 ==
LOC: LAB.DROPOF 03-22 09:37
PROVIDERS: PCP Student in an Organized Health Care Education/Training Program; Visit Provider Student in an Organized Health Care Education/Training Program
DX: E11.69 Type 2 diabetes mellitus with other specified complication (principal); E78.2 Mixed hyperlipidemia; I11.9 Hypertensive heart disease without heart failure; I25.10 Atherosclerotic heart disease of native coronary artery without angina pectoris; E66.811 Obesity, class 1
CPT/HCPCS: 80053; 80061; 83036; 84439; 84443; 85025